=== PATIENT | female | born 1960 | race Caucasian/White ===

== ENCOUNTER 2023-04-01 12:17 | Emergency (ER) | payer OTHER, MEDICARE, MEDICAID, SELFPAY ==
--- NOTE | ~2023-04-01 | CT_ITS ---
EXAMINATION: CT brain wo con INDICATION: Headache COMPARISON: 12/18/2009 TECHNIQUE: Standard unenhanced head CT. The dose-length product (DLP) was 681.00 mGy-cm. The mA was a djusted according to patient size. Iterative reconstruction technique was employed. FINDINGS: No intracranial hemorrhage, acute infarction, or abnormal mass lesion. The ventricles are n ormal. No abnormal mass effect or midline shift. The solorio-white matter differentiation is normal. The basal cisterns are patent. The orbits are normal. There is mild mucosal thickening of the paranasal sinuses. IMPRESSION: 1. No acute intracranial abnormality. Reviewed, dictated and finalized at location A.
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
[2023-04-01 12:17] VITALS: BP 167/89; PULSE 90; RESP 15; TEMP 36.9; O2SAT 99
--- NOTE | 2023-04-01 12:31 | ECG_ITS ---
Measurements Intervals Grady Rate: 79 P: 26 MS: 169 QRS: 20 QRSD: 129 T: 14 QT: 432 QTc: 496 Interpretive Statements SINUS RHYTHM RIGHT BUNDLE BRANCH BLOCK [120+ ms QRS DURATION, UPRIGHT V1, 40+ ms S IN I/aVL/V4/V5/V6] NO PREVIOUS ECG AVAILABLE FOR COMPARISON Electronically Signed On 04-01-2023 14:11:47 CDT by Mago Swift M.D.
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
[2023-04-01 12:58] LABS: Basophils Percent Auto 0.4 % (0.2-1.2); Eosinophils Absolute Auto 0.2 K/mm3 (0-0.3); Eosinophils Percent Auto 3.1 % (0-4.4); Hematocrit 33.5 % (37.0-47.0); Hemoglobin 10.5 g/dL (12.0-15.0); Immature Granulocyte Absolute 0.02 K/mm3 (0.00-0.031); Immature Granulocyte Percent A 0.3 % (0-0.5); Lymphocytes Absolute Auto 2.24 K/mm3 (0.9-3.2); Mean Corpuscular HGB Conc 31.3 g/dl (32-36); Mean Corpuscular Hemoglobin 26.4 pg (26-34); Mean Corpuscular Volume 84.2 fl (80-100); Mean Platelet Volume 11.1 fl (7.4-10.4); Monocytes Absolute Auto 0.5 K/mm3 (0.1-0.6); Monocytes Percent Auto 6.6 % (2.6-8.5); Neutrophils Absolute Auto 3.8 K/mm3 (1.3-6.7); Neutrophils Percent Auto 56.6 % (45.5-73.1); Platelet Count Result 277 k/mm3 (150-375); Red Blood Count 3.98 M/mm3 (4.2-5.4); Red Cell Distribution Width 13.7 % (11.5-14.5); White Blood Count 6.8 K/mm3 (4.5-10.0)
[2023-04-01 13:07] LABS: INR 1.1; Prothrombin Time 14.5 Seconds (11.1-14.7)
[2023-04-01 13:08] LABS: Lactic Acid Reflex 1.3 mmol/L (0.7-2.0); Partial Thromboplastin Time 25.2 SECONDS (22.3-36.8)
[2023-04-01 13:09] LABS: Alanine Aminotransferase 29 U/L (6-35); Albumin Level 3.7 g/dL (3.5-5.1); Alkaline Phosphatase 134 U/L (38-126); Anion Gap 5 mmol/L (8-16); Aspartate Amino Transferase 26 U/L (14-36); Bilirubin,Total 0.5 mg/dL (0.2-1.3); Blood Urea Nitrogen 16 mg/dL (7-17); Carbon Dioxide 23 mmol/L (22-30); Chloride 107 mmol/L (98-107); Estimated CRCL calculation 64 ml/min; Estimated Glomerular Filt Rate > 60; Glucose 203 mg/dL (65-110); Potassium 4.2 mmol/L (3.4-5.0); Sodium 135 mmol/L (137-145)
[2023-04-01 13:50] VITALS: BP 132/66; PULSE 74; RESP 12; O2SAT 98
[2023-04-01] MEDS: CYCLOBENZAPRINE HCL 10 MG TABLET PO (14:16)
[2023-04-01] MEDS: HYDROcodone/acetaminophen (*CRX) 5-325 MG TABLET 1 TAB PO (14:16)
== END 2023-04-01 15:10 | disposition home or self-care (01) ==
PROVIDERS: Emergency Provider Emergency Medicine; PCP Internal Medicine
DX: S19.9XXA Unspecified injury of neck, initial encounter (principal); R07.89 Other chest pain; Z95.1 Presence of aortocoronary bypass graft; M47.812 Spondylosis without myelopathy or radiculopathy, cervical region; I45.10 Unspecified right bundle-branch block; V49.40XA Driver injured in collision with unspecified motor vehicles in traffic accident, initial encounter
CPT/HCPCS: 36415; 70450; 71275; 72125; 74174; 80053; 83605; 85025; 85610; 85730; 93005; 99284; A9270; Q9967

== ENCOUNTER 2024-09-07 00:57 | Emergency (ER) | payer MEDICARE, MEDICAID, SELFPAY ==
--- OUTSIDE RECORDS SUMMARY | 2024-09-07 00:59 | XMS_ITS | Clinical Summary ---
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
--- OUTSIDE RECORDS SUMMARY | 2024-09-07 00:59 | XMS_ITS | Continuity of Care Document ---
Author Organization [facility] Address [address] [place] [address] Phone Care Team Providers Care Department Clerk Name Role Phone Ingram OD, Rodney Unavailable Unavailable Advance Directives Directive Yes / No Effective Date File Name No Information Encounters Encounter Description Practice Location Reason(s) For Visit Diagnoses Date Provider Providers Copied on Encounter [facility], [address], [place], [place], [id number], [place] tel:[phone] [facility] No Information May-2 5-200 4 Ingram OD Rodney. [address] , [address], [place], [address], [place]. tel:[phone] Family History Family Member Type Diagnosis Age At Onset No Information Payers Payer name Insurance type Covered libertarian ID Authoriza tion(s) Medicaid [facility] [id number] Social History Type Description Quantity Date Captured Comments Sex Female Smoking Status No Information Chief Complaint And Reason For Visit No Information Reason For Referral Reason For Referral No Information History Of Present Illness Encounter Date Complaint History Of Prese nt Illness No Information Functional Status Date Functional Assessmen t No Information Instructions Date Instruction Additional Infor mation No Information Assessments Type Assessment Date No Information Patient Care Teams Name Effective Dates (start - stop) Status Members No Information
--- OUTSIDE RECORDS SUMMARY | 2024-09-07 00:59 | XMS_ITS | Encounter Summary ---
Author Organization [employer] Address 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 [address] [email or web address] Cardiac Catheterization Comprehensive Report Patient: ?Ondina Rubio Study ID: ? [id number] Gender: ? F : ?1960 Age: ?47 years Race: Room: Bed: Height: ? 66 in ( 167.6 cm ) Study Date: ? April 03, 2008 Patient status: Inpatient Weight: ? 220 lb ( 100 kg ) Access. #: ?[id number] POC: Attending MD: ?? Stephanie Performing MD: ??Stephanie Indications and History: INDICATIONS: Atypical anginal pain. The patient stable. CLINICAL PRESENTATION: The patient reported atypical. Procedure(s) Performed: DIAGNOSTIC PROCEDURES: Left heart catheterization. Left ventriculography. Selective coronary angiography. Study Conclusions: SUMMARY - ??EF estimated by contrast ventriculography was 65 %. - ??There was no angiographic evidence for coronary artery disease. RECOMMENDATIONS There is no evidence of obstruction to explain the reported symptoms; the stress test appears to be a false positive. The etiology of the patient's discomfort is still not clear. COMPLICATIONS: There were no complications. Description of Procedure: BACKGROUND INFORMATION: Contrast ( Optiray, 90 ml ) was administered during the procedure. The patient was given 100.000 mL (IV) IV Solutions. The patient was given 3.000 l/min OXYGEN. The patient was given 3.000 mg VERSED (IVP). Hemodynamics: IMPRESSIONS: Hemodynamic assessment demonstrated normal hemodynamics. Cardiac structures: VENTRICULOGRAPHY: There were no left ventricular regional wall motion abnormalities. EF estimated by contrast ventriculography was 65 %. Coronary and graft angiography: IMPRESSIONS: There was no angiographic evidence for coronary artery disease. Condition1: --- ??Pressure mmHg ?Rate ?dPdt AO ?? 122-S/ 73-D, 94-M ??75 BPM LV ?? 132-S/ 3-BD, 7-ED ??62 BPM ??1400 AOp ??121-S/ 72-D, 94-M ??70 BPM PBa ??123-S/ 73-D, 94-M ??72 BPM PBv ??121-S/ 2-BD, 7-ED ??72 BPM ??1400 Prepared and Electronically Authenticated Jose Burch MD Confirmed April 03, 2008 16:41:10 Procedure Note Provider, Historical - 04/03/2008 [address] [address] [place] [address] [email or web address] Cardiac Catheterization Comprehensive Report Patient: Ondina Rubio Study ID: [id number] Gender: F : 1960 Age: 47 years Race: Room: Bed: Height: 66 in ( 167.6 cm ) Study Date: April 03, 2008 Patient status: Inpatient Weight: 220 lb ( 100 kg ) Access. #: [id number] POC: Attending MD: Stephanie Performing MD: Stephanie Indications and History: INDICATIONS: Atypical anginal pain. The patient stable. CLINICAL PRESENTATION: The patient reported atypical. Procedure(s) Performed: DIAGNOSTIC PROCEDURES: Left heart catheterization. Left ventriculography. Selective coronary angiography. Study Conclusions: SUMMARY - EF estimated by contrast ventriculography was 65 %. - There was no angiographic evidence for coronary artery disease. RECOMMENDATIONS There is no evidence of obstruction to explain the reported symptoms;the stress test appears to be a false positive. The etiology of thepatient's discomfort is still not clear. COMPLICATIONS: There were no complications. Description of Procedure: BACKGROUND INFORMATION: Contrast ( Optiray, 90 ml ) was administered during the procedure. The patient was given 100.000 mL (IV) IV Solutions. The patient was given3.000 l/min OXYGEN. The patient was given 3.000 mg VERSED (IVP). Hemodynamics: IMPRESSIONS: Hemodynamic assessment demonstrated normal hemodynamics. Cardiac structures: VENTRICULOGRAPHY: There were no left ventricular regional wall motion abnormalities. EF estimated by contrast ventriculography was 65 %. Coronary and graft angiography: IMPRESSIONS: There was no angiographic evidence for coronary artery disease. Condition1: --- Pressure mmHg Rate dPdt AO 122-S/ 73-D, 94-M 75 BPM LV 132-S/ 3-BD, 7-ED 62 BPM 1400 AOp 121-S/ 72-D, 94-M 70 BPM PBa 123-S/ 73-D, 94-M 72 BPM PBv 121-S/ 2-BD, 7-ED 72 BPM 1400 Prepared and Electronically Authenticated Jose Burch MD Confirmed April 03, 2008 16:41:10 us Jose Burch MD FLUOROSCOPY ORDERABLES Fi nal Result INTERFACE SYSTEM Refer to clinic/hospital department documented in this encounter Visit Diagnoses Diagnosis Other chest pain documented in this encounter
--- OUTSIDE RECORDS SUMMARY | 2024-09-07 01:00 | XMS_ITS | Clinical Summary ---
Author Organization [facility] Address [address] [facility] [place] [address] Care Team Providers Care Electronic Maintenance Supervisor Name Role Phone Berna Carson MD Primary Care Provider [phone] Source Comments [facility],non-owned Affiliates and Associated Physician Practices is amultiple site organization consisting of ambulatory clinics and hospital sitesin [place], [place], [place] and [place]. This disclosure is being madepursuant to the Care Everywhere program and may not contain all information available regarding this patient. Last updated 18.[facility] Allergies Active Allergy Reactions Criticality Noted Date Comments Amlodipine Base Swelling High 08/05/2022 Clarithromycin Rash,Other Medium 05/19/2018 Stomach pain. Clindamycin Rash Medium 11/09/2018 Doxepin Other High 02/15/2019 Lisinopril Anaphylaxis,Swelling High 04/02/2015 Tongue swelling Naproxen Other,Nausea and/or Vomiting Low 05/19/2018 Stomach pain. Stomach pain Ranexa Dizziness 04/02/2015 Ranolazine Dizziness Low 04/02/2015 Medications * Be aware that medications may not be up to date on this document. Alwaysverify current medications with the patient. Medication Sig Dispensed Refills Start Date End Date Status Insulin Pen Needle (PEN NEEDLES) 31G X 5 MM MISC Inject into muscle 5 times daily 05/04/2018 Active ONE TOUCH CLUB LANCETS MISC 1 stick 3 times daily before meals 11/29/2014 Active budesonide-formote rol (Symbicort) 160-4.5 MCG/ACT inhaler Inhale 2 (two) puffs by mouth 2 times daily 11/29/2014 Active fluticasone propionate (FLONASE) 50 MCG/ACT nasal spray [place] 2 (two) sprays into each nostril 2 times daily 05/12/2018 Active HYDROcodone-acetam inophen (NORCO) 7.5-325 MG tablet Take 1 (one) tablet by mouth every 6 hours as needed 12/19/2017 Active TOUALINEO SOLOSTAR pen Inject 80 Units into muscle 2 times daily 05/12/2018 Active Insulin Regular Human, Conc, (HUMULIN R) 500 UNIT/ML SOPN pen Inject 5 (five) Units to 25 (twenty five) Units subcutaneously 3 times daily before meals 04/13/2018 Active isosorbide mononitrate CR 24hr (IMDUR) 30 MG tablet Take 1 tablet by mouth 2 times daily 11/18/2017 Active levothyroxine (Synthroid) 100 MCG tablet Take 1 (one) tablet by mouth once daily 11/18/2017 Active lovastatin (MEVACOR) 40 MG tablet Take 1 (one) tablet by mouth daily with dinner 07/01/2015 Active metoprolol succinate XL 24hr (TOPROL XL) 100 MG tablet Take 1 (one) tablet by mouth once daily 11/18/2017 Active pantoprazole EC (PROTONIX) 20 MG tablet Take 1 (one) tablet by mouth 2 times daily with morning and evening meal 04/15/2016 Active raNITIdine (ZANTAC) 150 MG tablet Take 1 tablet by mouth 2 times daily 03/15/2018 Active nitroGLYCERIN (Nitrostat) 0.4 MG tablet Dissolve 0.4 mg under the tongue every 5 minutes as needed for Angina Active aspirin (ASPIRIN) 81 MG tablet Take 1 (one) tablet by mouth once daily Active atorvastatin (Lipitor) 80 MG tablet 04/21/2022 Active Ventolin HFA 108 (90 Base) MCG/ACT inhaler Inhale 2 (two) puffs by mouth every 4 hours as needed 08/04/2023 Active albuterol (Accuneb) 0.63 MG/3ML nebulizer solution Inhale 0.63 mg by mouth every 6 hours as needed Active baclofen (Lioresal) 20 MG tablet TAKE 1 TABLET BY MOUTH THREE TIMES A DAY NEEDED 07/26/2023 Active dulaglutide (Trulicity) 4.5 MG/0.5ML injection Inject 0.5 mL subcutaneously every 7 days 2 mL 11 08/27/2023 Active famotidine (Pepcid) 20 MG tablet 09/01/2023 Active furosemide (Lasix) 20 MG tablet 07/16/2022 Active blood glucose (True Metrix Blood Glucose Test) test strip CHECK BLOOD SUGAR THREE TIMES DAILY. Type 2 diabetes mellitus with hyperglycemia, with long-term current use of insulin . E11.65, Z79.4 05/19/2023 Active insulin degludec (Tresiba) 200 UNIT/ML pen Inject 50 units BID 05/19/2023 Acti ve lidocaine (Lidoderm) 5 % patch APPLY 1 PATCH ON SKIN ONCE DAILY (MAY WEAR UP TO 12 HOURS.) FOR CERVICAL RADICULOPATHY 08/25/2023 Active meloxicam (Mobic) 7.5 MG tablet Take 1 (one) tablet by mouth 2 times daily 08/17/2023 Active montelukast (Singulair) 10 MG tablet Take 1 (one) tablet by mouth once daily as directed. 07/17/2023 Active diclofenac sodium (Voltaren) 1 % gel Active hydrOXYzine HCl (Atarax) 50 MG tablet TAKE 2 TABLETS BY MOUTH EVERY DAY AT BEDTIME Active metoprolol tartrate IR (Lopressor) 25 MG tablet 09/29/2023 Active montelukast (Singulair) 10 MG tablet Take 1 (one) tablet by mouth once daily Active venlafaxine XR 24hr (Effexor XR) 150 MG capsule TAKE 1 CAPSULE BY MOUTH EVERY DAY IN THE MORNING Active diazePAM (Valium) 10 MG tabletIndications: Basal cell carcinoma (BCC) of skin of left upper lip Take 1 (one) tablet by mouth 3 times daily as needed For anxiety 3 tablet 10/01/2023 Active Active Problems Problem Noted Date Diagnosed Date Face lesion 05/19/2018 Skin lesion of hand 05/19/2018 Social History Tobacco Use Types Packs/Day Years Used Date Smoking Tobacco: Never Smokeless Tobacco: Never Tobacco Cessation:Counseling Given: Not Answered Alcohol Use Standard Drinks/Week Comments Yes 0 (1 standard drink = 0.6 oz pur e alcohol) Rarely Sex and Gender Information Value Date Recorded Sex Assigned at Not on file Gender Identity Not on file Sexual Orientation Not on file Last Filed Vital Signs Vital Sign Reading Time Taken Comments Blood Pressure 140/84 05/19/2018 10:10 AM CDT Pulse 81 05/19/2018 10:10 AM CDT Temperature 36.6 ??C (97.9 ??F) 05/19/2018 10:10 AM C DT Respiratory Rate - - Oxygen Saturation 99% 05/19/2018 10:10 AM CDT Inhaled Oxygen Concentration - - Weight 98.4 kg (217 lb) 11/09/2018 9:11 AM CDT Height 167.6 cm (5' 6 ) 11/09/2018 9:11 AM CDT Body Mass Index 35.02 11/09/2018 9:11 AM CDT Plan of Treatment Upcoming Encounters Date Type Department Care Team (Late st Contact Info) Description 09/09/2024 11:00 AM LEAD PERFORMANCE SUPPORT ANALYST Office Visit [facility] - Dermatology [address] [place] [address], [place] [address] Rola Dave MD [facility] [place] [id number] Health Maintenance Due Date Last Done Comments COLOGUARD (AGES 45-75) - COLON CA SCREENING 1960 COLON MONITORING 1960 COLONOSCOPY - COLON CA SCREENING 1960 CT COLONOGRAPHY - COLON CA SCREENING 1960 Colorectal Cancer Screening 1960 FIT - COLON CA SCREENING 1960 FLEX SIG - COLON CA SCREENING 1960 MAMMOGRAM 1960 PAP SMEAR 1960 HIV SCREENING 1975 HEPATITIS C SCREENING 06/09/1978 DTAP/TDAP/TD VACCINES (1 - Tdap) 1979 PNEUMOCOCCAL VACCINE 50+ (1 of 1 - PCV) 2010 ZOSTER VACCINE (1 of 2) 2010 COVID-19 VACCINE ( season) 2024 11/01/2020, 10/11/2020, 07/31/2020, Additional history exists INFLUENZA VACCINE (#1) 2024 DEPRESSION SCREENING 08/10/2024 MEDICARE AWV ? CALENDAR YEAR 2024 Respiratory Syncytial Virus (RSV) Vaccine Pt: or over 60 yrs (1 - 1-dose 75+ series) 2035 HEPATITIS B VACCINE Aged Out No longe r eligible based on patient's age to complete this topic HIB VACCINE Aged Out No longer eligi ble based on patient's age to complete this topic HPV VACCINE Aged Out No longer eligi ble based on patient's age to complete this topic MENINGOCOCCAL (Group B) VACCINE Aged Out No longer eligible based on patient's age to complete this topic MENINGOCOCCAL VACCINE Aged Out No dharmesh eugenia eligible based on patient's age to complete this topic Care Teams Electronic Maintenance Supervisor Relationship Specialty Start Date End Date Berna Carson MD [address] [place] [address] PCP - General 03/09/18
--- OUTSIDE RECORDS SUMMARY | 2024-09-07 01:00 | XMS_ITS | Data Portability ---
Author Organization [place] [facility] [employer] Main Office Address [address] [place] [address] Assessment Encounter Date Assessment Date Assessment LastModified by Organization Details LastModified Time 02/26/2023 02/26/2023 HPI: 62-year-old female came in today for evaluation of her left ankle injury. She is walking in 1 week ago and stepped in a hole. She inverted the ankle. She had immediate pain lateral ankle and swelling. She went to the emergency room in [place] and had x-rays done. I did review the x-rays which showed a small flake of bone off of the lateral talus. No other abnormalities were noted.She was placed into a cam walker boot. Physical exam: 62-year-old female she has some mild swelling to the lateral ankle. Mild ecchymosis laterally. Moderate tenderness to the ATFL. There is no tenderness medially to the ankle. 2+ dorsalis pedis pulse. No tenderness to palpation of the lateral malleolus. Impression: Patient has had a left lateral ankle sprain. She states she hates the boot because it is causing her to walk awkward and making other things hurt. We will provide her with an active ankle stirrup splint today which she can use. I recommended a course of formal physical therapy to rehab the ankle and we will set this up for her. She may be weight-bearing as tolerated. She should limit her activities at this point to allow the ankle to improve. We will see her in a month for re-evaluation. [email or web address] Not available 02/26/2023 14:59:15 Plan of Treatment Reminders Order Date Submit Date Provider Last Modified By Organization Details Last Modified Time Details Appointments New Patient 15 2024 01:45P M Dixie Abad MD Not available Not available Not available Lab None recorded . Referral None recorded . Procedures None recorded . Surgeries None recorded . Imaging None recorded . Medication Orders None recorded . Patient TargetsNo targets recorded. Patient InstructionsNo instructions recorded. Reason for Referral None Reported. Results Created Date Observation Date Name Description Value Unit Range Abnormal Flag Note LastModifiedBy Organization Detail LastModifiedTime 02/24/2002/20/2023 XR, knee, 1 or 2 view No observ ation record ed. [email or web address] Not Available 02/07 17:10:30 02/24/20 23 02/20/2023 XR, ankle , 3 or more view No observ ation record ed. [email or web address] Not Available 02/07 17:10:31 02/27/20 23 02/20/2023 XR, ankle No observ ation record ed. [email or web address] Not Available 2022 16:55:23 02/27/20 23 02/20/2023 XR, knee No observ ation record ed. [email or web address] Not Available 2022 16:55:41 Result Notes None recorded. Problems Name Problem SNOMED Code Status Onset Date Resolution Date Notes Provider Name and Address Organization Details Recorded Time Enthesopat hy of hip region 14056232 Active Not Available [facility] 3 12:56:07 Hip pain 03095943 Active Not Available [facility] 3 12:56:07 Pain of left ankle joint 0853445497428 9103 Active 2022 KAYLEE Del Cid null, [employer] 3 14:32:21 Sprain of right ankle 3178189535667 9105 Active 2022 Aniya Jenkins CMA null, [employer] 3 16:37:06 Problem Notes None recorded. Procedures Surgical History Date Name Laterality Status Provider Name and Address Organization Details Recorded Time open heart surgery completed Not Available [facility] 10/08/2022 12:53:21 Imaging Results Imaging Date Name Status LastModified by Organiz ation Details LastModified Time 02/20/2023 XR, knee, 1 or 2 view completed Information not available 02/23/2023 17:10:30 02/20/2023 XR, ankle, 3 or more view completed Information not available 02/23/2023 17:10:31 02/20/2023 XR, ankle completed Information no t available 02/26/2023 16:55:23 02/20/2023 XR, knee completed Information no t available 02/26/2023 16:55:41 Procedure Notes None recorded. Medical Equipment None Reported. Allergies Allergen ID Allergen Name Allergen Category Reaction Reaction Severity Criticality Documentation Date Start Date Code Code System Note Provider Name and Address Organization Details Recorded Time 73929 naproxen medicatio n Not available Not available Not available 10/08/2022 7258 RxNorm Not Available [facility] 3 13:01:20 27163 lisinopri l medicatio n anaphylax is Not available Not available 10/08/2022 37856 RxNorm Not Available [facility] 3 13:01:20 54503 doxepin medicatio n Not available Not available Not available 10/08/2022 3638 RxNorm Not Available [facility] 3 13:01:20 48005 clindamyc in Not available Not available Not available Not available 10/08/2022 2582 RxNorm Not Available [facility] 3 13:01:20 54711 Biaxin medicatio n Not available Not available Not available 10/08/2022 84473 9 RxNorm Not Available [facility] 3 13:01:20 58994 Effexor medicatio n Not available Not available Not available 12/03/2023 60283 2 RxNorm KAYLEE Magana, [place] [employer] [facility] 4 10:07:13 Medications Name Sig Start Date Stop Date Status Note LastModified by Organization Details LastModified Time cyclobenzap rine 10 mg tablet TAKE 1 TABLET BY MOUTH AT BEDTIME FOR MUSCLE SPASM 12/02 completed Not Available Not Available Not Available amoxicillin 500 mg capsule 02/26 completed Not Available Not Available Not Available furosemide 40 mg tablet TAKE 1 TABLET BY MOUTH ONCE DAILY active Not Available Not Available No t Available Humalog Mix 75-25 (U-100) Insulin 100 unit/mL subcutaneou s suspension 02/26 completed Not Available Not Available Not Available atorvastati n 40 mg tablet 07/17 completed Not Available Not Available Not Available atorvastati n 80 mg tablet TAKE 1 TABLET BY MOUTH EVERY DAY AT DINNER active Not Available Not Available No t Available venlafaxine ER 75 mg capsule,ext ended release 24 hr 02/26 completed Not Available Not Available Not Available citalopram 40 mg tablet 07/17 completed Not Available Not Available Not Available trazodone 50 mg tablet 12/02 completed Not Available Not Available Not Available fexofenadin e 60 mg tablet TAKE 1 TABLET BY MOUTH TWICE A DAY DIRECTED active Not Available Not Available No t Available Humulin R U-500 (Concentrat ed) Insulin 500 unit/mL subcutaneou s soln 12/02 completed Not Available Not Available Not Available ibuprofen 800 mg tablet 02/26 completed Not Available Not Available Not Available doxepin 25 mg capsule 07/17 completed Not Available Not Available Not Available hydrocodone 5 mg-acetamin ophen 325 mg tablet TAKE 1 TABLET BY MOUTH EVERY 8 HOURS NEEDED FOR PAIN active Not Available Not Available No t Available prednisone 20 mg tablet 02/26 completed Not Available Not Available Not Available isosorbide mononitrate ER 30 mg tablet,exte nded release 24 hr 07/17 completed Not Available Not Available Not Available clonazepam 0.5 mg tablet TAKE 1 TABLET BY MOUTH EVERY DAY WITH MEALS 12/02 completed Not Available Not Available Not Available lovastatin 40 mg tablet 07/17 completed Not Available Not Available Not Available metoprolol succinate ER 100 mg tablet,exte nded release 24 hr 02/26 completed Not Available Not Available Not Available sertraline 100 mg tablet 02/26 completed Not Available Not Available Not Available venlafaxine ER 150 mg capsule,ext ended release 24 hr TAKE 1 CAPSULE BY MOUTH EVERY DAY IN THE MORNING active Not Available Not Available No t Available metronidazo le 500 mg tablet 07/17 completed Not Available Not Available Not Available hydroxyzine HCl 50 mg tablet TAKE 2 TABLETS BY MOUTH EVERY DAY AT BEDTIME active Not Available Not Available No t Available fluocinonid e 0.05 % topical ointment 12/02 completed Not Available Not Available Not Available clopidogrel 75 mg tablet TAKE 1 TABLET BY MOUTH AT BEDTIME 05/27 /2021 completed Not Available Not Available Not Available doxepin 10 mg capsule 07/17 completed Not Available Not Available Not Available ciprofloxac in 500 mg tablet 07/17 completed Not Available Not Available Not Available sulfamethox azole 800 mg-trimetho prim 160 mg tablet TAKE 1 TABLET BY MOUTH EVERY 12 HOURS AFTER MEALS FOR 5 DAYS 12/02 completed Not Available Not Available Not Available aspirin 81 mg tablet,bonita yed release TAKE 1 TABLET BY MOUTH ONCE DAILY 02/26 completed Not Available Not Available Not Available tramadol 50 mg tablet TK 1 T PO Q 8 H PRN P 02/26 completed Not Available Not Available Not Available spironolact one 25 mg tablet TAKE 1 TABLET BY MOUTH ONCE DAILY 02/26 completed Not Available Not Available Not Available lidocaine-p rilocaine 2.5 %-2.5 % topical cream 02/26 completed Not Available Not Available Not Available isosorbide mononitrate ER 120 mg tablet,exte nded release 24 hr TAKE 1 TABLET BY MOUTH TWICE DAILY 12/02 completed Not Available Not Available Not Available baclofen 20 mg tablet TAKE 1 TABLET BY MOUTH THREE TIMES A DAY NEEDED active Not Available Not Available No t Available pantoprazol e 20 mg tablet,bonita yed release TAKE 1 TABLET BY MOUTH EVERY DAY active Not Available Not Available No t Available meloxicam 7.5 mg tablet Take 1 tablet every day by oral route. active Not Available Not Available No t Available levothyroxi ne 100 mcg tablet TAKE 1 TABLET BY MOUTH EVERY DAY DIRECTED active Not Available Not Available No t Available amoxicillin 875 mg tablet 02/26 completed Not Available Not Available Not Available alprazolam 0.25 mg tablet 02/26 completed Not Available Not Available Not Available citalopram 20 mg tablet 07/17 completed Not Available Not Available Not Available famotidine 20 mg tablet TAKE 1 TABLET BY MOUTH TWICE A DAY active Not Available Not Available No t Available amitriptyli ne 25 mg tablet 02/26 completed Not Available Not Available Not Available methocarbam ol 750 mg tablet 02/26 completed Not Available Not Available Not Available OneTouch Ultra Test strips CHECK BLOOD SUGAR THREE TIMES A DAY OR DIRECTED active Not Available Not Available No t Available baclofen 10 mg tablet active Not Available Not Available No t Available amlodipine 10 mg tablet 02/26 completed Not Available Not Available Not Available levothyroxi ne 50 mcg tablet 02/26 completed Not Available Not Available Not Available hydrocodone 7.5 mg-acetamin ophen 325 mg tablet 02/26 completed Not Available Not Available Not Available paroxetine 30 mg tablet 07/17 completed Not Available Not Available Not Available paroxetine 20 mg tablet 07/17 completed Not Available Not Available Not Available pantoprazol e 40 mg tablet,bonita yed release TAKE 1 TABLET BY MOUTH EVERY DAY BEFORE MEALS active Not Available Not Available No t Available ranitidine 150 mg tablet 07/17 completed Not Available Not Available Not Available buspirone 10 mg tablet TAKE 1 TABLET BY MOUTH TWICE A DAY WITH MEALS 12/02 completed Not Available Not Available Not Available divalproex ER 500 mg tablet,exte nded release 24 hr TAKE 2 TABLETS BY MOUTH AT BEDTIME active Not Available Not Available No t Available lidocaine 5 % topical patch APPLY 1 PATCH ON SKIN ONCE DAILY (MAY WEAR UP TO 12 HOURS.) FOR CERVICAL RADICULOP ATHY active Not Available Not Available No t Available nitroglycer in 0.[address] 1 TABLET UNDER THE TONGUE EVERY 5 MINUTES, UP TO 3 DOSES NEEDED FOR CHEST PAIN active Not Available Not Available No t Available aspirin 81 mg chewable tablet Chew 1 tablet every day by oral route. active Not Available Not Available No t Available diclofenac sodium 75 mg tablet,bonita yed release 07/17 completed Not Available Not Available Not Available montelukast 10 mg tablet TAKE 1 TABLET BY MOUTH EVERY DAY DIRECTED active Not Available Not Available No t Available hydroxyzine HCl 25 mg tablet active Not Available Not Available Not Available furosemide 20 mg tablet TAKE 1 TABLET BY MOUTH EVERY DAY DIRECTED active Not Available Not Available No t Available gabapentin 100 mg capsule TAKE 1 CAPSULE BY MOUTH TWICE A DAY active Not Available Not Available No t Available diazepam 10 mg tablet TAKE 1 TABLET BY MOUTH THREE TIMES A DAY NEEDED FOR ANXIETY active Not Available Not Available No t Available levofloxaci n 500 mg tablet 02/26 completed Not Available Not Available Not Available methylpredn isolone 4 mg tablets in a dose pack FOLLOW PACKAGE DIRECTION S active Not Available Not Available No t Available albuterol sulfate HFA 90 mcg/actuati on aerosol inhaler Inhale 2 puffs every 4 hours by inhalatio n route. active Not Available Not Available No t Available paroxetine 40 mg tablet 02/26 completed Not Available Not Available Not Available fluticasone propionate 50 mcg/actuati on nasal spray,suspe nsion INHALE ONE SPRAY IN EACH NOSTRIL EVERY DAY active Not Available Not Available No t Available amoxicillin 875 mg-potassiu m clavulanate 125 mg tablet TAKE 1 TABLET BY MOUTH TWICE A DAY FOR 7 DAYS FOR INFECTINO OF SKIN AND/OR SKIN STRUCTURE S active Not Available Not Available No t Available amoxicillin 500 mg-potassiu m clavulanate 125 mg tablet TAKE 1 TABLET BY MOUTH THREE TIMES A DAY active Not Available Not Available No t Available hydroxyzine pamoate 25 mg capsule 07/17 completed Not Available Not Available Not Available Alcohol Prep Pads USE ONE SWAB 3 TIMES A DAY DIRECTED active Not Available Not Available No t Available metoprolol tartrate 25 mg tablet TAKE 1 TABLET BY MOUTH TWICE A DAY active Not Available Not Available No t Available nitrofurant oin monohydrate /macrocryst als 100 mg capsule 12/02 completed Not Available Not Available Not Available duloxetine 60 mg capsule,del ayed release Take 1 capsule every day by oral route. active Not Available Not Available No t Available Lyrica 150 mg capsule 07/17 completed Not Available Not Available Not Available Asp 12/02 completed Not Available Not Available Not Available budesonide- formoterol HFA 160 mcg-4.5 mcg/actuati on aerosol inhaler INHALE 2 PUFFS TWICE A DAY DIRECTED active Not Available Not Available No t Available oxycodone 10 mg tablet TAKE 1 TABLET BY MOUTH EVERY 4 HOURS NEEDED FOR PAIN 02/26 completed Not Available Not Available Not Available diclofenac 1 % topical gel 12/02 completed Not Available Not Available Not Available Brilinta 90 mg tablet 02/26 completed Not Available Not Available Not Available lidocaine 5 % topical ointment 02/26 completed Not Available Not Available Not Available Comfort EZ Pen [place] 32 gauge x 3/16 active Not Available Not Available Not Available Farxiga 10 mg tablet 02/26 completed Not Available Not Available Not Available Trulicity 1.5 mg/0.5 mL subcutaneou s pen injector 12/02 completed Not Available Not Available Not Available Mike SoloStar U-300 Insulin 300 unit/mL (1.5 mL) subcutaneou s pen 02/26 completed Not Available Not Available Not Available Tresiba FlexTouch U-200 insulin 200 unit/mL (3 mL) subcutaneou s pen ADMINISTE R 50 UNITS UNDER THE SKIN TWICE DAILY active Not Available Not Available No t Available Tresiba FlexTouch U-100 active Not Available Not Available Not Available Humulin R U-500 (Conc) Insulin Kwikpen 500 unit/mL (3 mL) subcutaneou s TAKE 5-20 UNITS BEFORE BREAKFAST AND DINNER INSTRUCTE D ON A SLIDING SCALE active Not Available Not Available No t Available Basaglar KwikPen U-100 Insulin 100 unit/mL (3 mL) subcutaneou s 02/26 completed Not Available Not Available Not Available Omnipod Dash Pods (Gen 4) subcutaneou s cartridge CHANGE POD EVERY 2 DAYS 02/26 completed Not Available Not Available Not Available BD Virgen 2nd Gen Pen Needle 32 gauge x 5/32 USE TO INJECT INSULIN UP TO 4 TIMES A DAY active Not Available Not Available No t Available OneTouch Ultra2 Meter TEST BLOOD SUGARS 3 TIMES A DAY active Not Available Not Available No t Available OneTouch Delica Plus Lancet 33 gauge USE 1 EACH 3 (THREE) TIMES A DAY BEFORE MEALS active Not Available Not Available No t Available Trulicity 3 mg/0.5 mL subcutaneou s pen injector INJECT 0.5 ML (3 MG TOTAL) UNDER THE SKIN EVERY 7 DAYS 12/02 completed Not Available Not Available Not Available Trulicity 4.5 mg/0.5 mL subcutaneou s pen injector Inject by subcutane ous route. active Not Available Not Available No t Available Vitals Date Recorded Body weight Provider Name an d Address Organization Details Last Updated DateTime 01/03/2021 59149.7 g Not Available [facility] 12:53:39 Social History Question Answer Notes LastModified by Organizat ion Details LastModified Time Tobacco Smoking Status Never Smoker KAYLEE Del Cid null, [place] [facility] [place] 02/26/2023 14:31:08 What Is Your Level Of Alcohol Consumption? None [id number] Information not available 10/08/2022 How Much Tobacco Do You Chew? None [id number] Information not available 10/08/2022 In The 14 Days Before Symptom Onset, Have You Had Close Contact With A Laboratory-confirm ed COVID-19 While That Case Was Ill? No [id number] Information not available 10/08/2022 In The 14 Days Before Symptom Onset, Have You Had Close Contact With A Person Who Is Under Investigation For COVID-19 While That Person Was Ill? No [id number] Information not available 10/08/2022 Are You Passively Exposed To Smoke? No [id number] Information not available 10/08/2022 Sex: Unknown Functional Status Question Answer Note LastModified by Organizat ion Details LastModified Time What is your exercise level? None [id number] Information not available 10/08/2022 Mental Status None recorded. Family History Relationship Description Onset Age of this Age Resolved Age Notes LastModified by Organization Details LastModified Time Mother Heart disease [email or web address] Not available 2022 14:29:30 Mother Family history of stroke [email or web address] Not available 2022 14:29:44 Mother Family history of malignant neoplasm Not available 2022 14:30:11 Mother Hypertensive disorder [email or web address] Not available 2022 14:30:24 Mother Blood coagulation disorder [email or web address] Not available 2022 14:30:34 Mother Diabetes mellitus [email or web address] Not available 2022 14:30:55 Father Family history of stroke Not available 2022 14:29:44 Father Family history of malignant neoplasm [email or web address] Not available 2022 14:30:11 Sister Family history of malignant neoplasm Not available 2022 14:30:11 Sister Diabetes mellitus [email or web address] Not available 2022 14:30:55 Brother Diabetes mellitus [email or web address] Not available 2022 14:30:55 Medical History Condition Response MRSA N SLEEP APNEA N ALLERGIES/HAYFEVER N LUNG DISEASE/DISORDER N INSOMNIA N COPD N RADIATION / CHEMOTHERAPY N HIGH CHOLESTEROL / HYPERLIPIDEMIA Y HYPERTHYROIDISM N BLOOD DISEASES N EAR OR HEARING PROBLEMS N HYPOTHYROIDISM N DEPRESSION (INCLUDING POST ) Y HAVE YOU BEEN HOSPITALIZED OR SEEN IN E ER IN THE PAST YEAR ? N STROKE/TIA N ULCERS N OBESITY N ANEURYSM N HISTORY WITH COMPLICATIONS WITH ANESTHES IA ? N ARTHRITIS Y USE OF BLOOD THINNERS N NO SIGNIFICANT PAST MEDICAL HISTORY N DIABETES, TYPE Y PARATHYROID DISEASE N ENT N SEASONAL ALLERGIES N HEARTBURN / REFLUX Y HEPATITIS / LIVER DISEASE N SLEEP DISORDER N SEIZURES/EPILEPSY N HEADACHES/MIGRAINES Y CHF N PACEMAKER N DIZZINESS N HEART DISEASE/HEART PROBLEMS Y AIDS/HIV N FRACTURES N HYPERTENSION Y CANCER: SPECIFY N TOURETTE'S N BLOOD TRANSFUSION N ANEMIA/BLOOD DISORDER N ANESTHESIA COMPLICATIONS N CHRONIC EAR INFECTIONS N TUBERCULOSIS N Gynecological HistoryNo gynecological history recorded. Obstetrics History GPAL:G 0 P 0 0 0 0 Immunizations Vaccine Type Date Status Note Provider Nam e and Address Organization Details Recorded Time SARS-COV-2 (COVID-19) vaccine, UNSPECIFIED 0 completed Not Available [facility] 10/08/2022 13:01:06 SARS-COV-2 (COVID-19) vaccine, UNSPECIFIED 0 completed Not Available [facility] 10/08/2022 13:01:06 Past Encounters Encounter ID Performer Location Encounter Start Date Encounter Closed Date Diagnosis/Indication Diagnosis SNOMED-CT Code Diagnosis ICD10 Code Diagnosis Note [id number] [facility] [address] [place] [address] 01/03/2021 00:00:00 01/03/2021 14:51:47 [id number] SAMIA Bellamy [facility] [address] [place] [address] 02/26/2023 13:58:57 02/26/2023 15:07:51 Pain of left ankle joint 0300057347 5594922 M25.572 Health Concerns Section Related Observation LastModified by Organization Detai ls LastModified Time None Recorded Concern Status LastModified by Organization Details LastModified Time None Recorded Advance Directives Directive None Recorded Payers Encounter Date Sequence Insurance Name Policy Number Policy Partida Covered Member ID Partida Member ID Guarantor Name 02/26/2023 1 [place] Ondina Rubio [id number] Ondina Rubio 02/26/2023 2 [facility] (MEDICAID HMO) [id number] Ondina Rubio [id number] Ondina Rubio OBGyn Episode No OBEpisode recorded.
--- OUTSIDE RECORDS SUMMARY | 2024-09-07 01:00 | XMS_ITS | Patient Health Summary ---
Author Organization [facility] Address [address] [place] [address] Care Team Providers Care Planer Stone Name Role Phone Berna Carson MD Primary Care Provider [phone] Note [address] [facility],non-owned Affiliates and Associated Physician Practices is amultiple site organization consisting of ambulatory clinics and hospital sitesin [place], [place], [place] and [place]. This disclosure is being madepursuant to the Care Everywhere program and may not contain all information available regarding this patient. Last updated 18.[facility] Allergies * Amlodipine Base(Swelling) -High Criticality * Clarithromycin(Rash,Other) -Medium Criticality * Clindamycin(Rash) -Medium Criticality * Doxepin(Other) -High Criticality * Lisinopril(Anaphylaxis,Swelling) -High Criticality * Naproxen(Other,Nausea and/or Vomiting) -Low Criticality * Ranexa(Dizziness) * Ranolazine(Dizziness) -Low Criticality Medications * Be aware that medications may not be up to date on this document. Alwaysverify current medications with the patient. * Insulin Pen Needle (PEN NEEDLES) 31G X 5 MM MISC(Started 05/04/2018) Inject into muscle 5 times daily * ONE TOUCH CLUB LANCETS MISC(Started 11/29/2014) 1 stick 3 times daily before meals * budesonide-formoterol (Symbicort) 160-4.5 MCG/ACT inhaler(Started 11/29/2014) Inhale 2 (two) puffs by mouth 2 times daily * fluticasone propionate (FLONASE) 50 MCG/ACT nasal spray(Started 05/12/2018) Garrison 2 (two) sprays into each nostril 2 times daily * HYDROcodone-acetaminophen (NORCO) 7.5-325 MG tablet(Started 12/19/2017) Take 1 (one) tablet by mouth every 6 hours as needed * TODOMINIC SOLOSTAR pen(Started 05/12/2018) Inject 80 Units into muscle 2 times daily * Insulin Regular Human, Conc, (HUMULIN R) 500 UNIT/ML SOPN pen(Started 04/13/2018) Inject 5 (five) Units to 25 (twenty five) Units subcutaneously 3 times daily before meals * isosorbide mononitrate CR 24hr (IMDUR) 30 MG tablet(Started 11/18/2017) Take 1 tablet by mouth 2 times daily * levothyroxine (Synthroid) 100 MCG tablet(Started 11/18/2017) Take 1 (one) tablet by mouth once daily * lovastatin (MEVACOR) 40 MG tablet(Started 07/01/2015) Take 1 (one) tablet by mouth daily with dinner * metoprolol succinate XL 24hr (TOPROL XL) 100 MG tablet(Started 11/18/2017) Take 1 (one) tablet by mouth once daily * pantoprazole EC (PROTONIX) 20 MG tablet(Started 04/15/2016) Take 1 (one) tablet by mouth 2 times daily with morning and evening meal * raNITIdine (ZANTAC) 150 MG tablet(Started 03/15/2018) Take 1 tablet by mouth 2 times daily * nitroGLYCERIN (Nitrostat) 0.4 MG tablet Dissolve 0.4 mg under the tongue every 5 minutes as needed for Angina * aspirin (ASPIRIN) 81 MG tablet Take 1 (one) tablet by mouth once daily * atorvastatin (Lipitor) 80 MG tablet(Started 04/21/2022) * Ventolin HFA 108 (90 Base) MCG/ACT inhaler(Started 08/04/2023) Inhale 2 (two) puffs by mouth every 4 hours as needed * albuterol (Accuneb) 0.63 MG/3ML nebulizer solution Inhale 0.63 mg by mouth every 6 hours as needed * baclofen (Lioresal) 20 MG tablet(Started 07/26/2023) TAKE 1 TABLET BY MOUTH THREE TIMES A DAY NEEDED * dulaglutide (Trulicity) 4.5 MG/0.5ML injection(Started 08/27/2023) Inject 0.5 mL subcutaneously every 7 days 11 refills remaining * famotidine (Pepcid) 20 MG tablet(Started 09/01/2023) * furosemide (Lasix) 20 MG tablet(Started 07/16/2022) * blood glucose (True Metrix Blood Glucose Test) test strip(Started 05/19/2023) CHECK BLOOD SUGAR THREE TIMES DAILY. Type 2 diabetes mellitus with hyperglycemia, with long-term current use of insulin . E11.65, Z79.4 * insulin degludec (Tresiba) 200 UNIT/ML pen(Started 05/19/2023) Inject 50 units BID * lidocaine (Lidoderm) 5 % patch(Started 08/25/2023) APPLY 1 PATCH ON SKIN ONCE DAILY (MAY WEAR UP TO 12 HOURS.) FOR CERVICAL RADICULOPATHY * meloxicam (Mobic) 7.5 MG tablet(Started 08/17/2023) Take 1 (one) tablet by mouth 2 times daily * montelukast (Singulair) 10 MG tablet(Started 07/17/2023) Take 1 (one) tablet by mouth once daily as directed. * diclofenac sodium (Voltaren) 1 % gel * hydrOXYzine HCl (Atarax) 50 MG tablet TAKE 2 TABLETS BY MOUTH EVERY DAY AT BEDTIME * metoprolol tartrate IR (Lopressor) 25 MG tablet(Started 09/29/2023) * montelukast (Singulair) 10 MG tablet Take 1 (one) tablet by mouth once daily * venlafaxine XR 24hr (Effexor XR) 150 MG capsule TAKE 1 CAPSULE BY MOUTH EVERY DAY IN THE MORNING * diazePAM (Valium) 10 MG tablet(Started 10/01/2023) Take 1 (one) tablet by mouth 3 times daily as needed For anxiety Active Problems Problem Noted Date Diagnosed Date [...] Mass Index 35.02 11/09/2018 9:11 AM CDT Procedures * SC CHMSRG MOHS MG TQ H/N/H/F/G 1ST STAG 5 BLOC(Performed 10/08/2023) Performed for Basal cell carcinoma (BCC) of skin of left upper lip * SC ADJ TISS XFER HEAD,FAC,HAND 10.1-30(Performed 10/08/2023) Performed for Basal cell carcinoma (BCC) of skin of left upper lip * PROC BIOPSY OF SKIN LESION(Performed 09/04/2023) Performed for Neoplasm of uncertain behavior * PROC DESTRUCTION OF PRE-MALIGNANT LESIONS(Performed 09/04/2023) Performed for Actinic keratosis * DERMATOPATHOLOGY(Performed 09/04/2023) Performed for Neoplasm of uncertain behavior * SC DESTRUCT BENIGN LESION, 1-14(Performed 04/25/2022) Performed for Seborrheic keratosis, inflamed * SC DESTROY PREMALIG LESION, 1ST LESION(Performed 04/25/2022) Performed for Actinic keratosis * SC TANGNTL BX SKIN SINGLE LES(Performed 04/25/2022) Performed for Neoplasm of uncertain behavior of skin * DERMATOPATHOLOGY(Performed 04/25/2022) Performed for Neoplasm of uncertain behavior of skin * SC DESTROY PREMALIG LESION, 1ST LESION(Performed 11/11/2018) Performed for Actinic keratoses * SC DESTROY PREMALIG LESION, 2-14(Performed 11/11/2018) Performed for Actinic keratoses Results * SC ADJ TISS XFER HEAD,FAC,HAND 10.1-30, SC CHMSRG MOHS MG TQ H/N/H/F/G 1ST STAG 5 BLOC (10/08/2023 2:45 PM NEEDLE MAKER) John Curtis MD - 10/08/2023 2:45 PM John Doherty MD ? 10/08/2023 ??3:33 PM Mohs Micrographic Surgery Operative Note Procedure: Mohs micrographic surgery Date of service: 10/08/2023 Location: left upper cutaneous lip Preop diagnosis: Basal cell carcinoma, infiltrative subtype Postop diagnosis: Same Mohs AUC score: 9 Number of stages: 1 Preop size: 0.8x0.7 cm Postop size: 1.4x1.3 cm Depth of final defect: adipose Previous dermpath accession #: [id number] Repair type: rotation flap Mohs accession #: [id number] Surgeon and Pathologist: John Timmons MD served as both surgeon and pathologist. No other physician was involved in the cancer removal or pathology interpretation. Assistants: Nicholas Mederos MD Indications for Mohs Surgery Removal of the patient's tumor is complicated by the following clinical features: Clinical area critical for tissue conservation (Area H: central face, eyelids, eyebrows, nose, lips, chin, ear, periauricular, jain, genitalia, hands, feet, ankles, nail units and areola), aggressive pattern on initial pathology. Based on my medical judgement, Mohs surgery is the most appropriate treatment for this cancer compared to other treatments. I discussed alternative treatments to Mohs surgery and specifically discussed the risks and benefits of curettage, excision with permanent sections, and foregoing treatment. The rationale for Mohs was explained to the patient and consent was obtained. The risks, benefits and alternatives to therapy were discussed in detail. Specifically, the risks of infection, scarring, bleeding, prolonged wound healing, incomplete removal, allergy to anesthesia, nerve injury and recurrence were addressed. Prior to the procedure, the treatment site was clearly identified and confirmed by the patient. All components of Bailey Protocol/PAUSE Rule completed. STAGE I: The patient was placed on the operating table. The cancer was identified and outlined. The entire surgical field was prepped with hibiclens. The surgical site was anesthetized using Lidocaine 1% with epinephrine 1:100,000 buffered with sodium bicarbonate 8.4% in a 1:10 ratio.The area of clinically apparent tumor was debulked with a 2 mm curette. The layer of tissue was then surgically excised using a #15 blade and was then transferred onto a specimen sheet maintaining the orientation of the specimen. Hemostasis was obtained using monopolar electrodesiccation. The wound site was then covered with a dressing while the tissue samples were processed for examination. The specimen was oriented, mapped and divided. Each section was then inked and processed in the Mohs lab using the Mohs protocol and submitted for frozen section. The histopathologic sections were reviewed by the surgeon in conjunction with the reference map. Total blocks: 1 Total slides: 3 Frozen sections were examined by the surgeon. No additional tumor was identified. No additional histologic findings appreciated. Cell morphology: N/A. No tumor seen. Pathological pattern: N/A. No tumor seen. Depth of invasion: N/A. No tumor seen. Scar tissue: Not Present Perineural invasion: Not Present Inflammation obscuring possible tumor presence: Not Present [facility] CLIA # [id number] Mohs blood and plasma laboratory assistant: Mena Masterson MD REPAIR: Rotation Flap Primary Surgeon: John Timmons MD Concrete Pavement Installer: Nicholas Mederos MD Repair Size/Flap Dimensions: 3.0 x 4.0 cm Sutures: 4-0 monocryl, 6-0 prolene Indication for flap: A flap was chosen because closing the wound by second intention, primary linear closure, or when skin grafting would result in a functionally unsatisfactory result. Additionally, a flap was chosen to recruit additional tissue, displace tension away from the defect and any nearby free margins, as well as to reorient tension vectors in more favorable directions. The defect was identified and a marking pen was used to plan the repair. The area was infiltrated with Lidocaine 1% with epinephrine 1:100,000 buffered with sodium bicarbonate 8.4% in a 1:10 ratio, prepped with iodine and draped with sterile towels. The flap was incised using a #15 blade to adipose and undermined widely. The defect was debeveled and undermined and an adjacent standing cone was removed. Hemostasis was obtained using monopolar electrodesiccation. The flap was rotated into place and secured with buried vertical mattress sutures placed in the dermis and subcutaneous tissue. An additional standing cone was removed opposite the flap to minimize tissue deformity. Percutaneous simple running sutures were carefully placed for maximum eversion and meticulous wound edge approximation. Careful attention was paid to avoid distorting any nearby free margins. The wound was cleansed with saline and ointment was applied along the wound surface. A sterile pressure dressing was applied. Wound care instructions were given verbally and in writing. The patient left the operating suite in stable condition. Patient was informed that additional refinement of the resulting surgical scar may be used as a second stage of this reconstruction. Postoperative amoxicillin 875mg two times daily x7 days was/were sent to the patient's pharmacy. The patient will follow up in 1 week(s) for suture removal . Darren (Nicholas) MD Rosa M Mohs MSDO Fellow, PGY5 A procedure was performed. I was present for the luna portions of the procedure and was always immediately available. I have reviewed the note and edited it as necessary. Date of Service : 10/08/2023 John Timmons MD John Timmons MD PROCEDURE/MINOR SURG ICAL ORDERABLES * PROC BIOPSY OF SKIN LESION (09/04/2023 5:14 PM NEEDLE MAKER) Narrative Rola Dave MD - 09/04/2023 5:14 PM NEEDLE MAKER Ulises Sexton MD ? 09/13/2023 12:24 PM Risks, benefits and alternatives to shave biopsy were discussed with the patient. Verbal consent obtained. Location: Left upper cutaneous lip Skin prep: Alcohol Anesthesia: 1% lidocaine with epinephrine Hemostasis: Aluminum Chloride Dressing and wound care discussed. Patient agrees to [employer] or Fylet message for results if not available. Ulises Sexton MD Internal Medicine Resident Rola Dave MD PROCEDURE/ARTHUR R SURGICAL ORDERABLES * PROC DESTRUCTION OF PRE-MALIGNANT LESIONS (09/04/2023 5:13 PM NEEDLE MAKER) Narrative Rola Dave MD - 09/04/2023 5:13 PM NEEDLE MAKER Ulises Sexton MD ? 09/13/2023 12:24 PM Diagnosis and treatment options discussed. Liquid nitrogen was applied to 2 lesions (see office visit note for locations) for 6-10 seconds each for 1 cycle. Wound care reviewed. Rola Dave MD PROCEDURE/ARTHUR R SURGICAL ORDERABLES * DERMATOPATHOLOGY (09/04/2023 3:33 AM NEEDLE MAKER) Only the most recent of2 resultswithin the time period is included. Case Report Dermatopathology Report ? Case: [id number] ? Authorizing Provider: ??Rola Dave, ?? Collected: ? 09/04/2023 03:33 AM ? MD ? Ordering Location: ? [facility] - Dermatology ?Received: ?09/05/2023 08:37 AM ? Pathologist: ? Caroilne Russo MD ? Specimen: ?Skin, left upper cutaneous lip ? 4 2:14 PM NEEDLE MAKER DERMATOPATHOLOGY LABORATORY Final Diagnosis Specimen A. SKIN, left upper cutaneous lip: BASAL CELL CARCINOMA, INFILTRATIVE PATTERN (C44.319) 4 2:14 PM NEEDLE MAKER DERMATOPATHOLOGY LABORATORY Clinical History BCC vs SCC 4 2:14 PM NEEDLE MAKER DERMATOPATHOLOGY LABORATORY Gross Description Specimen A: Received is one formalin filled container labeled with the patient's name and designated left upper cutaneous lip. The specimen consists of a(2) pieces shave biopsy measuring 3x4x1,2x2x1 mm. Jar 0. 2:14 PM [facility] DERMATOPATHOLOGY [facility]ORATORY Microscopic Description Specimen A. SKIN, left upper cutaneous lip: Within the dermis there are nodular aggregates of basaloid cells associated with fibromyxoid stroma and epithelial-stromal clefts. At the advancing margin of the neoplasm, there are smaller angulated nests that infiltrate the dermis. 4 2:14 PM [facility] DERMATOPATHOLOGY [facility]OR[facility] Disclaimer An external and internal positive and negative controls are appropriate for the histochemical, immunohistochemical and immunofluorescence stain(s) in this case (if any), except where stated explicitly. The performance characteristics of the stain(s) cited in this report were developed and its performance characteristic determined by the Dermatopathology Laboratory at [facility], directed by Dr. Michell Tsang. These tests need not be, and therefore are not, approved by the [place] Food and Drug Administration. The tests are used for clinical purposes. Billing Codes Specimen Charges Stain Charges 08125 1 4 2:14 PM [facility] DERMATOPATHOLOGY [facility] Embedded Images 2:14 PM [facility] DERMATOPATHOLOGY [facility] Pathology/Cytolo gy TISSUE SPECIMEN FROM SKIN / Unknown 09/04/2023 3:33 AM NEEDLE MAKER 09/05/2023 8:37 AM NEEDLE MAKER Rola Dave MD LAB - PATHOLOG Y/CYTOLOGY ORDERABLES DERMATOPATHOLOGY LABORATORY [facility] - Department of Dermatology [address], [address] [phone] * SC DESTRUCT BENIGN LESION, 1-14 (04/25/2022 11:45 AM CDT) Narrative Rola Dave MD - 04/25/2022 11:45 AM CDT Darren Mederos MD ? 04/25/2022 11:45 AM Diagnosis and treatment options discussed. Cryotherapy (Liquid Nitrogen) to iSKs x 4 on R cheek, R neck, R hand + forearm x 6-10 seconds each. Number of cycles: 1. Wound care reviewed. Rola Dave MD PROCEDURE/ARTHUR R SURGICAL ORDERABLES * SC DESTROY PREMALIG LESION, 1ST LESION (04/25/2022 11:23 AM CDT) Narrative Rola Dave MD - 04/25/2022 11:23 AM CDT Darren Mederos MD ? 04/25/2022 11:23 AM Diagnosis and treatment options discussed. Cryotherapy (Liquid Nitrogen) to AK x1 on L forehead x 6-10 seconds each. Number of cycles: 1. Wound care reviewed. Rola Dave MD PROCEDURE/ARTHUR R SURGICAL ORDERABLES * SC TANGNTL BX SKIN SINGLE LES (04/25/2022 11:22 AM CDT) Narrative Rola Dave MD - 04/25/2022 11:22 AM CDT Darren Mederos MD ? 04/25/2022 11:23 AM Risks, benefits and alternatives to shave biopsy were discussed with the patient. Verbal consent was obtained. Encounter Diagnoses Name Primary? ? ? Neoplasm of uncertain behavior of skin Yes ? ? Actinic keratosis ? Multiple benign melanocytic nevi of upper and lower extremities and trunk ? Solar lentiginosis ? Seborrheic keratosis ? Seborrheic keratosis, inflamed ?? Location: R nasal root Skin prep: Alcohol Anesthesia: 1% lidocaine with epinephrine Hemostasis: Aluminum chloride Dressing and wound care discussed. Specimen(s) placed in a patient labeled container and sent to [facility] Dermatopathology. Patient agrees to phone call for results and message if not available. Darren Mederos MD Rola Dave MD PROCEDURE/ARTHUR R SURGICAL ORDERABLES * SC DESTROY PREMALIG LESION, 2-14, SC DESTROY PREMALIG LESION, 1ST LESION (11/11/2018 2:35 PM CDT) Narrative Maria E Mojica MD - 11/11/2018 2:35 PM CDT Remington Angeles MD ? 11/09/2018 11:57 AM Diagnosis and treatment options discussed. Cryotherapy (Liquid Nitrogen) to 3 lesions on the forehead x 1, nose x 2 for 5-7 seconds each. Number of cycles: 1. Wound care reviewed. Maria E Mojica MD PROCEDURE/MINOR KAN RGICAL ORDERABLES Care Teams Planer Stone Relationship Specialty Start Date End Date Berna Carson MD [address] [place] [address] PCP - General 03/09/18
--- OUTSIDE RECORDS SUMMARY | 2024-09-07 01:00 | XMS_ITS | Patient Health Record ---
Author Organization [facility] Address [address] [place] [address] Care Team Providers Care Sweet Dough Mixer Name Role Phone Hans Maxx Unavailable [phone] REASON FOR REFERRAL No Information SOCIAL HISTORY Sex Assigned At : Social History Observation Description Sex Assigned At Female PROBLEMS Problem Type ICD Code Onset Dates Problem Status W/U Status Risk SNOMED Code Notes Problem Essential (primary) hypertension (I10) Active confirmed Essential hypertension (36070675) Problem Chronic obstructive pulmonary disease, unspecified (J44.9) Active confirmed Chronic obstructive pulmonary disease (42582624) Problem Type 2 diabetes mellitus without complications (E11.9) Active confirmed Type II diabetes mellitus without complication (612501410) Problem Chronic kidney disease, stage 3b (N18.32) Active confirmed Chronic kidney disease stage 3B (disorder) (221409532) Encounters Encounter Location Date Provider Diagnosis [facility] [address] [place] [address] 07/01/2024 Maxx Maxwell Chronic kidney disease, stage 3b N18.32 ; Type 2 diabetes mellitus without complications E11.9 ; Essential (primary) hypertension I10 and Chronic obstructive pulmonary disease, unspecified J44.9 ASSESSMENTS Encounter Date Diagnosis Assessment Notes Treatment Notes Treatment Clinical Notes Section Notes 07/01/2024 Type 2 diabetes mellitus without complications (ICD-10 - E11.9) 07/01/2024 Chronic kidney disease, stage 3b (ICD-10 - N18.32) 07/01/2024 Essential (primary) hypertension (ICD-10 - I10) 07/01/2024 Chronic obstructive pulmonary disease, unspecified (ICD-10 - J44.9) PLAN OF TREATMENT No Information
--- OUTSIDE RECORDS SUMMARY | 2024-09-07 01:00 | XMS_ITS | Clinical Summary ---
Author Organization [facility] Address [address] [place] [address]. [place], [place] [address] [place] [id number] Care Team Providers Care Rag Cutting Machine Tender Name Role Phone None, Provider MD Primary Care Provider Unavaila ble Social History Tobacco Use Types Packs/Day Years Used Date Smoking Tobacco: Never Assessed Comments Unknown Sex and Gender Information Value Date Recorded Sex Assigned at Not on file Legal Sex Female 10:47 AM CDT Gender Identity Not on file Sexual Orientation Not on file Plan of Treatment Health Maintenance Due Date Last Done Comments Cervical Cancer Screening Pap Smear (Age 30 to 64) Every 3 Years 1960 Colorectal Cancer Screening Colonoscopy (10 Years) 1960 Annual Physical 1963 Hepatitis C 1978 DTaP, Tdap and Td Vaccines (1 - Tdap) 1979 Cervical Cancer Screening Pap with HPV Testing (Age 30 to 64) Every 5 Years 1990 Cervical Cancer Screening with HPV 1990 Mammogram Screening 2000 Zoster Vaccines (1 of 2) 2010 COVID-19 Vaccine ( season) 2024 11/01/2020, 10/11/2020, 07/31/2020, Additional history exists Influenza Adult (#1) 2024 RSV Immunization or 60+ Years (1 - 1-dose 75+ series) 2035 Meningococcal B Vaccine Aged Out No l onger eligible based on patient's age to complete this topic Meningococcal Vaccine Aged Out No dharmesh eugenia eligible based on patient's age to complete this topic Pneumococcal Vaccine: Pediatrics (0 to 5 Years) and At-Risk Patients (6 to 64 Years) Aged Out No longer eligible based on patient's age to complete this topic RSV Immunizations Under 20 Months Aged Out No longer eligible based on patient's age to complete this topic Insurance [employer] OF [employer] Care Teams Rag Cutting Machine Tender Relationship Specialty Start Date End Date None, Provider, PCP - General UNKNOWN PHYSICIAN SPECIALTY 01/27/24
--- OUTSIDE RECORDS SUMMARY | 2024-09-07 01:00 | XMS_ITS | Clinical Summary ---
Author Organization [facility] Address [address] [place] [id number] Care Team Providers Care Microfiche Duplicator Name Role Phone Leandro Landry MD Unavailable [phone] Aris Maxwell MD Unavailable Claudio Kohler MD Primary Care Provider Allergies Active Allergy Reactions Criticality Noted Date Comments Amlodipine Swelling High 08/05/2022 Clarithromycin Rash,Other (See comments) Medium 05/19/2018 Stomach pain. Clindamycin Rash Medium 11/09/2018 Doxepin Fatigue,Other (See comments) High 02/15/2019 Lisinopril Swelling,Anaphylaxis ,Swo llen tongue High 04/02/2015 Tongue swelling Naproxen Other (See comments),Nausea And Vomiting,Nausea & Vomiting Low 05/19/2018 Stomach pain Stomach pain. Stomach pain Ranolazine Dizziness Low 04/02/2015 Venlafaxine Other (See comments) Low 04/21/2024 Medications budesonide-form oterol (SYMBICORT) 160-4.5 mcg/actuation inhaler inhale 2 puff by inhalation route 2 times every day in the morning and evening 0 Inhaler 0 015 Active albuterol HFA (VENTOLIN HFA) 90 mcg/actuation inhaler inhale 2 puff by inhalation route every 4 - 6 hours as needed 0 Inhaler 0 017 Active levothyroxine (SYNTHROID) 100 mcg tablet Take 1 tablet (100 mcg total) by mouth daily Active fluticasone (FLONASE) 50 mcg/actuation nasal spray One spray each nostril daily Active atorvastatin (LIPITOR) 80 mg tablet Take 1 tablet (80 mg total) by mouth daily Active albuterol 0.63 mg/3 mL nebulizer solution Take 3 mL (0.63 mg total) by nebulization every 6 (six) hours as needed for wheezing Active aspirin 81 mg enteric coated tablet Take 1 tablet (81 mg total) by mouth daily 30 tablet 1 Active docusate sodium (COLACE) 100 mg capsuleIndicati ons:constipatio n Take 1 capsule (100 mg total) by mouth 2 (two) times a day Active furosemide (LASIX) 20 mg tablet Active isosorbide mononitrate ER (IMDUR) 120 mg 24 hr tablet isosorbide mononitrate ER 120 mg tablet,extended release 24 hr Active famotidine (PEPCID) 20 mg tablet Active metoprolol tartrate (LOPRESSOR) 25 mg immediate release tablet Take 1 tablet (25 mg total) by mouth 2 (two) times a day Active nitroglycerin (NITROSTAT) 0.4 mg SL tablet Active naloxone (NARCAN) 4 mg/actuation spray,non-aeros ol Administer 1 spray into affected nostril(s) as needed for opioid reversal or respiratory depression Call 911. Administer a single spray in one nostril. Repeat every 3 minutes as needed if no or minimal response. 2 each Active montelukast (SINGULAIR) 10 mg tablet Active nitrofurantoin monohydrate (MACROBID) 100 mg capsuleIndicati ons:Acute cystitis without hematuria TAKE 1 CAPSULE(100 MG) BY MOUTH TWICE DAILY FOR 7 DAYS 14 capsule 023 Active lidocaine (LIDODERM) 5 % Place 1 patch on the skin daily Active busPIRone (BUSPAR) 10 mg tablet Take 1 tablet (10 mg total) by mouth 2 (two) times a day Active divalproex ER (DEPAKOTE ER) 500 mg 24 hr tablet Take 2 tablets (1,000 mg total) by mouth nightly Active hydrOXYzine (ATARAX) 50 mg tablet Take by mouth nightly Active venlafaxine XR (EFFEXOR-XR) 150 mg 24 hr capsule Take 1 capsule (150 mg total) by mouth every morning Active insulin regular U-500 (HumuLIN R U-500) 500 unit/mL (3 mL) CONCENTRATED pen for injectionIndica tions:Type 2 diabetes mellitus with hyperglycemia, with long-term current use of insulin ([facility]) Take 5-20 units before breakfast and dinner as instructed on a sliding scale 15 mL 3 023 Active gabapentin (NEURONTIN) 100 mg capsuleIndicati ons:Diabetic Peripheral Neuropathy Take 1 capsule (100 mg total) by mouth 2 (two) times a day 180 capsule 1 023 Active blood glucose diagnostic (True Metrix Glucose Test Strip) stripIndication s:Type 2 diabetes mellitus with hyperglycemia, with long-term current use of insulin ([facility]) CHECK BLOOD SUGAR THREE TIMES DAILY. Type 2 diabetes mellitus with hyperglycemia, with long-term current use of insulin . E11.65, Z79.4 300 each 3 023 Active baclofen (LIORESAL) 20 mg tablet TAKE 1 TABLET BY MOUTH THREE TIMES A DAY NEEDED [address] (CYMBALTA) 60 mg capsule Take 1 capsule (60 mg total) by mouth every morning 023 Active meloxicam (MOBIC) 7.5 mg tablet Take 1 tablet (7.5 mg total) by mouth 2 (two) times a day 024 Active lancets (OneTouch Delica Plus Lancet) 33 gauge misc USE 1 EACH 3 (THREE) TIMES A DAY BEFORE MEALS 100 each 3 024 Active diazePAM (VALIUM) 10 mg tablet TAKE 1 TABLET BY MOUTH THREE TIMES A DAY NEEDED FOR ANXIETY 024 Active fexofenadine (MAKENZIE) 60 mg tablet TAKE 1 TABLET BY MOUTH TWICE A DAY DIRECTED Active LORazepam (ATIVAN) 2 mg tablet TAKE 1 TABLET BY MOUTH 30 MINUTES BEFORE PROCEDURE AND 1 TABLET RIGHT BEFORE PROCEDURE 024 Active isosorbide mononitrate ER (IMDUR) 30 mg 24 hr tablet Take 1 tablet (30 mg total) by mouth daily Active pantoprazole DR (PROTONIX) 40 mg EC tablet TAKE 1 TABLET BY MOUTH EVERY DAY BEFORE MEALS Active semaglutide (OZEMPIC) 1 mg/dose (4 mg/3 mL) pen injector injectionIndica tions:type 2 diabetes mellitus Inject 1 mg under the skin every 7 days 9 mL 3 024 2024 Active insulin degludec (TRESIBA) 200 unit/mL (3 mL) pen for injectionIndica tions:Type 2 diabetes mellitus with hyperglycemia, with long-term current use of insulin ([facility]) Inject 0.38 mL (76 Units total) under the skin daily 45 mL 2 024 2024 Active blood-glucose meter kitIndications: Type 2 diabetes mellitus with hyperglycemia, with long-term current use of insulin ([facility]) One Touch Ultra Test blood sugars tid Dx:E11.65 insulin dependent 1 kit 024 Active alcohol swabs (Alcohol Prep Pads) pads, medicatedIndica tions:Type 2 diabetes mellitus with hyperglycemia, with long-term current use of insulin ([facility]) USE ONE SWAB 3 TIMES A DAY DIRECTED 100 each 7 Active pen needle, diabetic (BD Virgen 2nd Gen Pen Needle) 32 gauge x 5/32 needleIndicatio ns:Type 2 diabetes mellitus with hyperglycemia, with long-term current use of insulin ([facility]) USE TO INJECT INSULIN UP TO 4 TIMES A DAY 400 each 3 024 Active OneTouch Ultra Test strip CHECK BLOOD SUGAR THREE TIMES A DAY OR DIRECTED 100 strip 3 Active clopidogreL (PLAVIX) 75 mg tablet Take 1 tablet (75 mg total) by mouth daily Active HYDROcodone-betsy taminophen (NORCO) 7.5-325 mg per tabletIndicatio ns:Pain Take 1 tablet by mouth every 8 (eight) hours as needed for pain 90 tablet 025 2024 Active HYDROcodone-betsy taminophen (NORCO) 7.5-325 mg per tabletIndicatio ns:Pain Take 1 tablet by mouth every 8 (eight) hours as needed for pain 90 tablet 025 2024 Active blood glucose diagnostic (OneTouch Ultra Test) strip CHECK BLOOD SUGAR THREE TIMES A DAY OR DIRECTED 100 strip 3 024 2024 Discontinued HYDROcodone-betsy taminophen (NORCO) 7.5-325 mg per tabletIndicatio ns:Pain Take 1 tablet by mouth every 8 (eight) hours as needed for pain 90 tablet 024 2024 Discontinued(R eorder) HYDROcodone-betsy taminophen (NORCO) 7.5-325 mg per tabletIndicatio ns:Pain Take 1 tablet by mouth every 8 (eight) hours as needed for pain 90 tablet 024 2024 Discontinued(R eorder) Active Problems Problem Noted Date Diagnosed Date Cervical spinal stenosis 03/09/2024 Dysuria 12/08/2022 Assessment & Plan (12/08/2022 1:33 PM CDT): New problem. UA/CX ordered. Will update labs today. Verified phone #/address to contact re: results. Do not hold your urine. Urinate as soon as you feel the need to go Drink plenty of water and fluids. Limit alcohol, caffeine, and citrus juices- They will irritate the bladder Wipe front to back & wear cotton underwear Try emptying your bladder before and after having sexual intercourse Follow up with your PCP if you are not getting better If you have severe back, flank, or groin pain with nausea/vomiting or are unable to get comfortable from the pain, please go to ER for further treatment Tylenol/Motrin for pain Degeneration of lumbar intervertebral disc 09/09 Chronic pain syndrome 09/09/2022 Acquired hypothyroidism 12/24/2021 Assessment & Plan (04/21/2024 10:55 AM CDT): Chronic problem. Managed by PCP. Currently taking levothyroxine 100mcg daily. Aware to take 1st thing in morning, 30-60 minutes before food/drink/other medications. Assessment & Plan (08/27/2023 12:19 PM SHIRT MAKER): Chronic problem. Managed by PCP. Currently taking levothyroxine 100mcg daily Assessment & Plan (02/27/2022 12:30 PM CDT): Chronic problem, PCP adjusted LT4 based on labs yesterday. She asks about her thyroid nodules as she feels they're getting bigger, but clinical exam is benign and she points to submandibular area on exam. I recommended she f/u with ENT, since they have done her previous US and biopsies, so they have her records. If she has concerns about enlarged lymph nodes then they would be able to address this as well. Assessment & Plan (12/24/2021 10:18 AM CDT): Thyroid function tests, including TSH and free T4 were requested Will adjust dose of Levothyroxine accordingly . If there is a need to make changes, will recheck levels in 2-3 months. Instructions to patient on taking medication properly : in the morning, on an empty stomach , 1 h part from food and/or other meds. Long-term current use of opiate analgesic 2021 Lumbosacral spondylosis without myelopathy 08/12 Spinal stenosis of lumbar re gion without neurogenic claudication 08/12/2021 Chronic pain of both shoulders 07/17/2021 Myalgia 07/17/2021 Radiculopathy, lumbosacral region 07/17/2021 Chronic bilateral low back pain with bilateral s ciatica 07/17/2021 Coronary artery disease 11/21/2020 Overview (11/21/2020): Added automatically from request for surgery [id number] Coronary artery disease invo lving [place] coronary artery of [place] heart without angina pectoris 11/21/2020 Overview (12/14/2020): Added automatically from request for surgery [id number] Enthesopathy of hip region 08/16/2020 Obstructive sleep apnea syndrome 11/23/2018 Arthritis of hip 02/09/2018 Class 2 severe obesity due t o excess calories with serious comorbidity and body mass index (BMI) of 35.0 to 35.9 in adult 01/07/2018 Assessment & Plan (04/16/2018 2:30 PM CDT): Needs to be compliant with diet. Advised chair exercise daily with hand weight and stretch bands Assessment & Plan (01/07/2018 3:02 PM CDT): Importance of following diet and exercising discussed. Hyperlipidemia associated with type 2 diabetes judith chanel 03/17/2017 Assessment & Plan (04/21/2024 10:52 AM CDT): Chronic problem. Controlled on current Atorvastatin 80mg. Last lipid panel: 12/08/22 LDL=63, YB=261. Will update labs today. Does not mychart. Verified phone #/address to contact re: results. Assessment & Plan (08/27/2023 11:56 AM SHIRT MAKER): Chronic problem. Controlled on current Atorvastatin 80mg. Last lipid panel: 12/08/22 LDL=63, DJ=503. No changes at this time. Assessment & Plan (05/19/2023 1:16 PM CDT): Chronic problem. Controlled on current Atorvastatin 80mg. Last lipid panel: 12/08/22 LDL=63, JU=938. No changes at this time. Assessment & Plan (12/08/2022 1:13 PM CDT): Chronic problem. Controlled on current Atorvastatin 80mg. Last lipid panel: 12/24/21 LDL=67, IA=637. No changes at this time. Will update labs today. Verified phone #/address to contact re: results. Assessment & Plan (08/18/2022 10:22 AM SHIRT MAKER): Chronic problem. On statin therapy, no changes. Assessment & Plan (02/27/2022 10:22 AM CDT): Chronic problem. On statin therapy, no changes. Assessment & Plan (12/24/2021 10:17 AM CDT): Chronic, well controlled Low fat Low cholesterol diet Exercise Continue statin therapy Check lipid profile Assessment & Plan (06/06/2021 11:16 AM CDT): Chronic problem. On statin therapy, no changes. Assessment & Plan (08/19/2020 3:45 PM SHIRT MAKER): Continue statin Assessment & Plan (12/13/2018 8:43 AM CDT): At goal on current medications. Assessment & Plan (08/28/2018 1:22 PM SHIRT MAKER): Check lipid panel Assessment & Plan (04/16/2018 2:31 PM CDT): Continue statin therapy Assessment & Plan (01/07/2018 3:01 PM CDT): Continue lovastatin Assessment & Plan (08/27/2017 1:12 PM SHIRT MAKER): Goal of treatment , LDL cholesterol less than 100 ( less than 70 in patients with history of heart attacks and / or strokes ) NonHDL cholesterol goal less than 130 ( less than 100 in patients with history of heart attacks and / or strokes ) Continue statin therapy Assessment & Plan (03/17/2017 9:22 AM CDT): Goal of treatment , LDL cholesterol less than 100 ( less than 70 in patients with history of heart attacks and / or strokes ) NonHDL cholesterol goal less than 130 / 100 Lipids at goal. Continue statin therapy Low cholesterol diet, exercise advised. Diabetic peripheral neuropat hy associated with type 2 diabetes mellitus ([facility]) 03/17/2017 Assessment & Plan (04/21/2024 10:53 AM CDT): Chronic problem. Currently taking gabapentin 100mg bid. Reviewed foot care; needs to lotion daily. Aware to check feet nightly, not to go barefoot. Assessment & Plan (08/27/2023 11:56 AM SHIRT MAKER): Chronic problem. Currently taking gabapentin 100mg bid. Aware to check feet nightly & not go barefoot. Assessment & Plan (05/19/2023 1:17 PM CDT): Chronic problem. Currently taking gabapentin 100mg bid. Aware to check feet nightly. To wear shoes. Assessment & Plan (12/08/2022 1:32 PM CDT): Chronic problem. Aware to check feet nightly. To wear shoes. Gabapentin 100mg bid sent. Reviewed medication SE & Scheduling. Assessment & Plan (07/12/2019 9:28 AM SHIRT MAKER): Foot care discussed Start Gabapentin. Assessment & Plan (01/07/2018 3:00 PM CDT): Schedule follow up with ear specialist. Foot care and driving risks reviewed. Assessment & Plan (03/17/2017 9:41 AM CDT): Restart Carolann Foot care discussed Diabetes mellitus 04/02/2015 Assessment & Plan (04/21/2024 11:14 AM CDT): Chronic problem. Not at goal but A1c has improved from 8.3% 08/27/23 to now 7.7% -increased Ozempic from 0.5mg to 1mg weekly. Aware to monitor BG & may need to decrease Tresiba with increase ozempic. Current medications: Ozempic 1 mg weekly (switched 02/08/24 from trulicty) Tresiba 50 units every morning & 25 units in afternoon U500 before breakfast & dinner: (not needing as frequently, may take every other day or daily) If blood sugar is <150, do not take any If blood sugar is between 150-200, take 5 units. If blood sugar is between 200-250, take 10 units. If blood sugar is between >250, take 15 units. Will update labs today. Does not mychart. Verified phone #/address to contact re: results. Had DM eye appt scheduled 05/2023 at [facility] but missed appt. Aware to call to reschedule. Strive for regular exercise (30min most days) and diet (get at least 4-5 servings of fruit and veggies daily, avoid processed foods, increase lean protein intake and decrease carb portions as well as fruit juices, regular soda & desserts). Watch carbs and simple sugars. Check the feet daily for skin breakdown and infection. Assessment & Plan (08/27/2023 12:54 PM SHIRT MAKER): Chronic problem. Not at goal. A1c has remained stable at 8.3% Will increase Trulicity from 3mg to 4.5mg weekly. Discussed possible shortage; states she has 6 weeks left. Will call if any difficulty obtaining the 4.5mg dose of Trulicity. Discussed moving to [facility] if unable to obtain Trulicity. Current medications: Trulicity 4.5mg weekly Tresiba 75units every morning U500 before breakfast & dinner: If blood sugar is <150, do not take any If blood sugar is between 150-200, take 5 units. If blood sugar is between 200-250, take 10 units. If blood sugar is between >250, take 15 units. UTD on labs. Had DM eye appt scheduled 05/2023 at [facility] but missed appt. Aware to call to reschedule. Strive for regular exercise (30min most days) and diet (get at least 4-5 servings of fruit and veggies daily, avoid processed foods, increase lean protein intake and decrease carb portions as well as fruit juices, regular soda & desserts). Watch carbs and simple sugars. Check the feet daily for skin breakdown and infection. Assessment & Plan (05/19/2023 1:42 PM CDT): Chronic problem. Not at goal. A1c worsened from 7.7% to now 8.3% Current medications: Farxiga 10mg daily Trulicity 3mg weekly Tresiba 75units every morning U500 before breakfast & dinner: If blood sugar is <150, do not take any If blood sugar is between 150-200, take 5 units. If blood sugar is between 200-250, take 10 units. If blood sugar is between >250, take 15 units. UTD on labs. Has DM eye appt scheduled next week at [facility]. Letter will be sent to get copy of report. Strive for regular exercise (30min most days) and diet (get at least 4-5 servings of fruit and veggies daily, avoid processed foods, increase lean protein intake and decrease carb portions as well as fruit juices, regular soda & desserts). Watch carbs and simple sugars. Check the feet daily for skin breakdown and infection. Assessment & Plan (12/08/2022 1:35 PM CDT): Chronic problem. Not at goal but A1c improved from 8.1% 08/18/22 to now 7.7%, Current medications: Farxiga 10mg daily Trulicity 3mg weekly Tresiba 75units every morning U500 before breakfast & dinner: If blood sugar is <150, do not take any If blood sugar is between 150-200, take 5 units. If blood sugar is between 200-250, take 10 units. If blood sugar is between >250, take 15 units. Will update labs today. Verified phone #/address to contact re: results. To call to schedule eye exam. Strive for regular exercise (30min most days) and diet (get at least 4-5 servings of fruit and veggies daily, avoid processed foods, increase lean protein intake and decrease carb portions as well as fruit juices, regular soda & desserts). Watch carbs and simple sugars. Check the feet daily for skin breakdown and infection. Assessment & Plan (08/18/2022 10:39 AM SHIRT MAKER): Chronic problem, not at goal. A1c higher (partially due to steroid use) but having severe hypoglycemia into 40s at least twice a week overnight. She is typically only taking aD U500 right now at low dose around 5p, and lows happening around 3 am. We reviewed risk of hypoglycemia especially given her CAD history. Medication adjustments below. She still has quite a bit of U500 left but discussed holding on filling this when she runs out so we can change to less concentrated insulin. Continue Farxiga. Increase Trulicity to 4.5 mg once a week. Lower Basaglar to 80 units and only take it once in the morning. If you are still having low sugars overnight, decrease to 70 units. Call us if you're still having lows or any questions about insulin adjustment. When you run out of U500 (or getting close), DO NOT refill it. We will change it to U100 insulin which is less concentrated and we can be more specific with your sliding scale so less risk of low blood sugars. Assessment & Plan (02/27/2022 12:28 PM CDT): Chronic problem, improving but not at goal. Restart Farxiga 10 mg. Increase Trulicity to 3 mg weekly. Decrease Basaglar to 70 units once a day. Humulin R U500 at your meals if needed (only dose it based on your blood sugar level before meals). If blood sugar is <150, do not take any If blood sugar is between 150-200, take 5 units. If blood sugar is between 200-250, take 10 units. If blood sugar is between >250, take 15 units. Call if any issues, especially low blood sugars. Assessment & Plan (12/24/2021 10:16 AM CDT): Hba1c was Lab Results Component Value Date HGBA1C 8.6 12/24/2021 today, indicating poor DM control Goal Hba1c and blood glucose explained Diet and exercise were advised Prevention and treatment of hyypoglcyemia were discussed with the patient Blood glucose monitoring : ac and hs ( pt not interested in CGM ) Adjustment to medications: Check your sugars before meals and bedtime Stay onToujeo , 100 units once a day , in the morning U500 before brealkfast and dinner If blood sugar is <120, do not take any If blood sugar is between 120-200, take 5 units. If blood sugar is between 200-250, take 10 units. If blood sugar is between >250, take 15 units. Start Trulicity 0.75 mg weekly x 4 wks Give a call in 2-3 weeks, to let me know of any side effects, nausea or vomiting Start Farxiga, 10 mg tab in the morning. Let me know if your sugars start going low, so we can adjust the dose of the insulin Assessment & Plan (06/06/2021 12:55 PM CDT): Chronic problem, improving per A1c with significant dietary changes, but having frequent and severe hypoglycemia. She has a lot of U500 left and prefers to use this up first due to cost if she can. Decrease Toujeo to 80 units once a day in the morning. U500 only at BK and DN (not lunch to avoid insulin stacking overnight). If blood sugar is <120, do not take any If blood sugar is between 120-200, take 5 units. If blood sugar is between 200-250, take 10 units. If blood sugar is between >250, take 15 units. She will send updated readings in 1 week to review, sooner if still having lows. We discussed CGM but she declines for now, will consider. If continues to have lows with U500 we may need to stop this for HL for shorter duration of action, but will monitor. Schedule eye exam. Assessment & Plan (08/19/2020 3:49 PM SHIRT MAKER): A1c 8.1. Will try to get Omnipod as this may be beneficial in being able to address BG patterns throughout the day. Will also try for U500 pump later in the year when available. Assessment & Plan (05/03/2020 4:52 PM CDT): A1c 7.9. Somewhat improved. Will not recommend any changes to insulin plan today. Main issue is related to stress, depressed mood. Recommend that she follow up with PCP. Provided with resource to check for a therapist in [place] for support with family situation. Assessment & Plan (07/12/2019 9:28 AM SHIRT MAKER): Your Hba1c today was: Lab Results Component Value Date HGBA1C 8.5 (A) 07/12/2019 meaning a 3 month average sugar of : 197 Your goal hba1c is under 7.0 to prevent residential diabetes complications ( eye , kidney and nerve damage ) . Your goal sugars are in the 90-130 range Exercise recommendations: It is recommended that you do daily aerobic ( walking, riding a bike, swimming ) and resistance exercises ( light weight lifting, resistance band stretching ) for at least 30 minutes , most days of the week. If you can not walk, chair exercises for 10-15 min a day would help tremendously. As little as 15-20 minutes exercise , in one or two sessions a day, is still very helpful to improve your diabetes control . Diet recommendations: Eat small portion meals, trying not to consume more than 1800 calories a day . Try to eat not more than than 2 servings of carbs ( starches ) wiith your meals. Avoid soft drinks, including regular sodas , fruit juices and sweetened tea. Drink water instead. Eat plenty of green and leafy vegetables, including salads. Medications: Take your medications regularly. Setting phone alarms can help . Keep your medication on the kitchen dinner table, by the bedside table or by the sink where they are visible to you. If you are taking insulin : the insulin that you are currently using does not need to be refrigerated. Keep it where you can see it . Monitor your sugar levels with finger sticks regularly and keep a log sheet or book. Bring your sugar meter and /or a log book or log sheet to every office visit. Take Humulin U500 on a sliding scale before meals as follows; For sugars under 90, none 91-150, 10 units 151-200 15 units 201-250 20 units 251-300 25 units 301-350 30 units Over 351 35 units Stay on Toujeo, same dose. Assessment & Plan (02/24/2019 11:29 AM CDT): Your Hba1c today was: Lab Results Component Value Date HGBA1C 7.9 % 02/24/2019 meaning a 3 month average sugar of : 177 Your goal hba1c is under 7.0 to prevent manager intermediate diabetes complications ( eye , kidney and nerve damage ) . Your goal sugars are in the 90-130 range Exercise recommendations: It is recommended that you do daily aerobic ( walking, riding a bike, swimming ) and resistance exercises ( light weight lifting, resistance band stretching ) for at least 30 minutes , most days of the week. If you can not walk, chair exercises for 10-15 min a day would help tremendously. As little as 15-20 minutes exercise , in one or two sessions a day, is still very helpful to improve your diabetes control . Diet recommendations: Eat small portion meals, trying not to consume more than 1800 calories a day . Try to eat not more than than 2 servings of carbs ( starches ) wiith your meals. Avoid soft drinks, including regular sodas , fruit juices and sweetened tea. Drink water instead. Eat plenty of green and leafy vegetables, including salads. Medications: Take your medications regularly. Setting phone alarms can help . Keep your medication on the kitchen dinner table, by the bedside table or by the sink where they are visible to you. If you are taking insulin : the insulin that you are currently using does not need to be refrigerated. Keep it where you can see it . Monitor your sugar levels with finger sticks regularly and keep a log sheet or book. Bring your sugar meter and /or a log book or log sheet to every office visit. Will request a continuous glucose monitor ( DEXCOM ) Assessment & Plan (12/13/2018 9:56 AM CDT): A1c 7.8, improving. Continue current medication plan. Assessment & Plan (08/28/2018 1:24 PM SHIRT MAKER): A1c 8.3. Improved. Have asked her to send in exact U 500 ssi she has been using and along with BG log. Will make adjustments at that time. Advised to be more thoughtful with diet. BG goals reviewed. Recommend trying OTC hot pepper cream. Assessment & Plan (04/16/2018 2:39 PM CDT): A1c increased to 10. 2. BG goals reviewed. To send in BG log to evaluate FBG. If mostly > 150 will need to increase Toujeo. Lunch and dinner hyperglycemia d/t lack of compliance with diet. Increase upper limit of U 500 ssi Humulin U 500 scale: Sugars under 90, none ?? 90-150 30 units 151-200 35 units 201-250 40 units 251-300 50 units 301-350 55 units Over 351 60 units Cerebrovascular accident (CVA) 04/02/2015 Hypertension associated with diabetes 09/13/2010 Assessment & Plan (04/21/2024 10:53 AM CDT): Chronic problem. Controlled on current Metoprolol tartrate 25mg bid, lasix 20mg daily & Imdur ER 120mg daily. Will update labs today. Does not mychart. Verified phone #/address to contact re: results. Assessment & Plan (08/27/2023 11:56 AM SHIRT MAKER): Chronic problem. Controlled on current Metoprolol tartrate 25mg bid, lasix 20mg daily & Imdur ER 120mg daily. No changes at this time. Assessment & Plan (05/19/2023 1:17 PM CDT): Chronic problem. Controlled on current Metoprolol tartrate 25mg bid, lasix 20mg daily & Imdur ER 120mg daily. No changes at this time. Assessment & Plan (12/08/2022 1:13 PM CDT): Chronic problem. Controlled on current Metoprolol tartrate 25mg bid, lasix 20mg daily & Imdur ER 120mg daily. No changes at this time. Will update labs today. Verified phone #/address to contact re: results. Assessment & Plan (08/18/2022 10:22 AM SHIRT MAKER): Controlled on current medications, no changes. Assessment & Plan (02/27/2022 10:22 AM CDT): Controlled on current medications, no changes. Assessment & Plan (06/06/2021 11:15 AM CDT): Controlled on current medications, no changes. Assessment & Plan (08/19/2020 3:45 PM SHIRT MAKER): Continue current medication Assessment & Plan (05/03/2020 4:52 PM CDT): Controlled on current medications. Continue plan. Assessment & Plan (12/13/2018 8:44 AM CDT): Continue current medication. Check home BP readings Assessment & Plan (08/28/2018 1:21 PM SHIRT MAKER): Controlled on current medications. Assessment & Plan (04/16/2018 2:30 PM CDT): Controlled on current medications. Assessment & Plan (01/07/2018 3:02 PM CDT): Controlled on current medications. Assessment & Plan (08/27/2017 1:11 PM SHIRT MAKER): Goal blood pressure is less than 140/85 Low salt diet recommended Daily aerobic exercise Continue current meds, including BETSY-I or ARB Assessment & Plan (03/17/2017 9:23 AM CDT): Goal blood pressure is less than 140/85 Low salt diet recommended Daily aerobic exercise Continue current meds, including BETSY-I or ARB Chest pain 09/13/2010 Arteriosclerosis of coronary artery 08/26/2010 Resolved Problems Problem Noted Date Diagnosed Date Resolved Date BMI 34.0-34.9,adult 08/18/2022 12/09/19 23 Acute pain of left knee 05/06/2022 05/0 08/2022 Morbid (severe) obesity due to excess calories 02/27/2022 12/08/2022 Assessment & Plan (08/18/2022 10:37 AM SHIRT MAKER): Chronic problem, improving. Increase Trulicity. Assessment & Plan (02/27/2022 12:28 PM CDT): Chronic problem, not at goal. Adjust medications as above. Hip pain 08/16/2020 12/08/2022 Edema 11/23/2018 12/08/2022 Skin lesion of hand 05/19/2018 12/09/19 23 Face lesion 05/19/2018 12/08/2022 Uncontrolled type 2 diabetes mellitus with hyperglycemia, with long-term current use of insulin 03/17/2017 05/27/2022 Assessment & Plan (01/07/2018 3:04 PM CDT): A1c 9.2. Main issue is sugary drinks causing constant BG spikes throughout the day. Strongly advised no regular soda or sweet tea. Foot care reviewed. Needs to follow up with ear specialist. Assessment & Plan (08/27/2017 1:25 PM SHIRT MAKER): Your Hba1c today was: 9.1 meaning a 3 month average sugar of : 220 Your goal hba1c is under 7.0 to prevent manager intermediate diabetes complications ( eye , kidney and nerve damage ) . Your goal sugars are in the 90-130 range Daily aerobic ( walking, riding a bike, swimming ) and resistance exercises ( light weight lifting, resistance band stretching ) for at least 30 minutes is recommended If you can not walk, chair exercises is very acceptable. As little as 15-20 min daily exercise , in one or two sessions a day is still very helpful . Eat small portion meals, no more than 1800 calories Diet Try to eat not more than than 2-3 servings of carbs ( starches ) wiith your meals. Avoid soft drinks, including regular sodas , fruit juices and sweetened tea. Drink water instead. Eat plenty of green and leafy vegetables, including salads. Take your medications regularly,including your insulin injections. Monitor your sugar levels with finger sticks Regularly and keep a log sheet or book. Increase Toujoe to 75 Units twice a day , morning and night Humulin U500 before meals as follows: Sugars under 90, none 90-150 30 units 151-200 35 units 201-250 40 units 251-300 45 units 301-350 50 units Over 351 55 units Bring your sugar meter and /or a log book or sheet to every office visit. Assessment & Plan (03/17/2017 9:31 AM CDT): Hba1c was 8.4 today, indicating inadequate DM control 1800 calorie, consistent carb diet recommended 30 min daily aerobic and resistance exercise recommended Foot care discused. Prevention and treatment of hyypoglcyemia discussed. Dyslipidemia 09/13/2010 12/08/2022 Assessment & Plan (05/03/2020 4:52 PM CDT): Continue statin therapy Assessment & Plan (02/24/2019 11:30 AM CDT): Goal of treatment , LDL cholesterol less than 100 ( less than 70 in patients with history of heart attacks and / or strokes ) NonHDL cholesterol ( total cholesterol minus HDL cholesterol ) goal less than 130 ( less than 100 in patients with history of heart attacks and / or strokes ) Low cholesterol, low fat diet was discussed and advised. Daily exercise On statin therapy Shortness of breath 09/13/2010 12/09/19 23 Encounters Date Type Department Care Team Description 08/31/2024 9:55 AM SHIRT MAKER - 08/31/2024 11:59 PM SHIRT MAKER Hospital Encounter [facility] [address] [place] [id number] Baldo Montejo NP Diabetic peripheral neuropathy associated with type 2 diabetes mellitus (CMS/HCC) (FORMERLY [facility]) (Primary Dx); Myalgia; Long-term current use of opiate analgesic; Lumbosacral spondylosis without myelopathy; Spinal stenosis of lumbar region without neurogenic claudication; Chronic pain syndrome Discharge Disposition: Discharge to home or self care 07/05/2024 9:28 AM SHIRT MAKER - 07/05/2024 11:59 PM SHIRT MAKER Hospital Encounter [facility] [address] [place] [id number] Baldo Montejo NP Radiculopathy, lumbosacral region (Primary Dx); Chronic bilateral low back pain with bilateral sciatica; Long-term current use of opiate analgesic; Lumbosacral spondylosis without myelopathy; Spinal stenosis of lumbar region without neurogenic claudication; Chronic pain syndrome Discharge Disposition: Discharge to home or self care 06/20/2024 Telephone [facility] [address] [place] [id number] Hilda De Souza NP Med Management (Ozempic) from Last 3 Months Immunizations Name Administration Dates Next Due Pfizer SARS-CoV-2 Monovalent Vaccination (12+ Yrs) PURPLE 11/01/2020,10/11/2020,07/31/2020,2019 Surgical History Surgery Date Site/Laterality Comments TOTAL ABDOMINAL HYSTERECTOMY Hysterectomy, total TONSILLECTOMY Tonsillectomy CHOLECYSTECTOMY Cholecystectomy CARPAL TUNNEL RELEASE Bilateral CORONARY ANGIOPLASTY WITH STENT PLACEMENT 08/10/2018 - 08/09/2019 TRIGGER FINGER RELEASE Bilateral thumb NEUROPLASTY / TRANSPOSITION ULNAR NERVE AT ELBOW Bilateral DEBRIDEMENT TENNIS ELBOW Bilateral HEART SURGERY Medical History Medical History Date Comments Hypertension Hypertension Disease of thyroid gland Thyroid disease Hypercholesterolemia High choles terol Chronic coronary artery disease CAD Type 2 diabetes mellitus (HCC) Trigger thumb of both hands Sleep apnea Asthma GERD (gastroesophageal reflux disease) Stroke (FORM[facility]LY [facility]) TIA Thyroid nodule Skin cancer Uncontrolled type 2 diabetes mellitus with hyperglycemia, with long-term current use of insulin (FORMERLY [facility]) 03/17/2017 Class 2 severe obesity due t o excess calories with serious comorbidity and body mass index (BMI) of 35.0 to 35.9 in adult (FORMERLY [facility]) 01/07/2018 Family History Medical History Relation Name Comments Diabetes Brother 1 Diabetes mellit us; Stroke Brother 2 Stroke; Colon cancer Father Cancer, colon; Lung cancer Father Cancer, lung; Diabetes Mother Diabetes mellit us; Heart failure Mother Congestive hea rt failure; Melanoma Mother Melanoma; Thyroid disease Mother Thyroid diso rder; Lung cancer Sister 1 Cancer, lung; Diabetes Sister 2 Diabetes mellit us; Thyroid disease Sister 3 Thyroid diso rder; Relation Name Status Comments Brother 1 Brother 2 Father Mother Sister 1 Sister 2 Sister 3 Social History Tobacco Use Types Packs/Day Years Used Date Smoking Tobacco: Never Smokeless Tobacco: Never Alcohol Use Standard Drinks/Week Comments Yes 0 (1 standard drink = 0.6 oz pur e alcohol) Social Connection and Isolat ion Panel [NHANES] Answer Date Recorded In a typical week, how many times do you talk on the phone with family, friends, or neighbors? Three times a week 12/14/2020 How often do you get togethe r with friends or relatives? More than three times a week 12/14/2020 How often do you attend chur ch or hoahaoism services? Never 12/14/2020 Do you belong to any clubs o r organizations such as alevism groups, unions, fraternal or athletic groups, or school groups? No 12/14/2020 How often do you attend meet ings of the clubs or organizations you belong to? Never 12/14/2020 Are you , , di vorced, , never , or living with a partner? 12/14/2020 AUDIT-C Answer Date Recorded Q1: How often do you have a drink containing alc ohol? Never 12/24/2021 Average Number of Drinks Not on file 022 Frequency of Binge Drinking Not on file 12/08 Overall Financial Resource Strain (CARDIA) Answe r Date Recorded How hard is it for you to pa y for the very basics like food, housing, medical care, and heating? Not hard at all 12/14/2020 PHQ-2 Answer Date Recorded PHQ-2 Total Score (If total score is 3 or more points, staff should administer the PHQ-9) 2 12/24/2021 Hunger Vital Sign Answer Date Recorded Within the past 12 months, y ou worried that your food would run out before you got the money to buy more. Never true 12/15/19 21 Within the past 12 months, t he food you bought just didn't last and you didn't have money to get more. Never true 12/14/2020 PRAPARE - Transportation Answer Date Re corded In the past 12 months, has l ack of transportation kept you from medical appointments or from getting medications? No 02/2021 In the past 12 months, has l ack of transportation kept you from meetings, work, or from getting things needed for daily living? No 12/14/2020 Comments No Sex and Gender Information Value Date Recorded Sex Assigned at Not on file Legal Sex Female 12:18 AM SHIRT MAKER Gender Identity Not on file Sexual Orientation Not on file Obstetrics History Last Filed Vital Signs Vital Sign Reading Time Taken Comments Blood Pressure 111/61 08/31/2024 10:28 AM SHIRT MAKER Pulse 79 08/31/2024 10:28 AM SHIRT MAKER Temperature 36.4 ??C (97.5 ??F) 05/03/2024 10:19 AM C DT Respiratory Rate 17 08/31/2024 10:28 AM SHIRT MAKER Oxygen Saturation 100% 08/31/2024 10:28 AM SHIRT MAKER Inhaled Oxygen Concentration - - Weight 94.3 kg (208 lb) 04/21/2024 10:38 AM CDT Height 162.2 cm (5' 3.86 ) 04/21/2024 10:38 AM C DT Body Mass Index 35.86 04/21/2024 10:38 AM CDT Plan of Treatment Health Maintenance Due Date Last Done Comments Breast Cancer Screening-Mammogram 1960 Colon Cancer Screening-Colonoscopy 1960 Hepatitis C Screening 1960 Pneumococcal vaccine <65 (1 of 2 - PCV) 1966 DTaP/Tdap/Td Vaccine (1 - Tdap) 1971 Hepatitis B Screening 1978 Regular Well Visit/Exam 18-64 1978 Zoster Vaccine (1 of 2) 2010 Dilated Eye Exam 11/25/2018 11/25/2017 Depression Screening 12/24/2022 12/24/2021, 06/06/2021, 05/03/2020, Additional history exists Covid-19 Vaccine (5 - 2023-2 5 season) 2024 11/01/2020, 10/11/2020, 07/31/2020, Additional history exists Influenza Vaccine (#1) 2024 Hemoglobin A1C 10/19/2024 04/21/2024, 08/10, 05/19/2023, Additional history exists Albumin Creatinine Ratio, Urine 04/21/2025 04/21/2024, 12/08/2022, 12/24/2021, Additional history exists Foot Exam 04/21/2025 04/21/2024, 11/08, 02/27/2022, Additional history exists Lipid Panel 04/21/2025 04/21/2024, 05/0 08/2022, 12/24/2021, Additional history exists eGFR 04/21/2025 04/21/2024, 05/0 08/2022, 12/24/2021, Additional history exists Colon Cancer Screening-FIT Discontinued 01/03/2019 Procedures Procedure Name Priority Date/Time Associated Diagnosis Comments EGFR Routine 04/21/2024 11:25 AM CDT Type 2 diabetes mellitus with hyperglycemia, with long-term current use of insulin (HCC) LIPID PANEL Routine 04/21/2024 11:25 AM CDT Type 2 diabetes mellitus with hyperglycemia, with long-term current use of insulin (HCC) ALBUMIN CREATININE RATIO, URINE Routine 04/21/2024 11:25 AM CDT Type 2 diabetes mellitus with hyperglycemia, with long-term current use of insulin (HCC) POCT HEMOGLOBIN A1C Routine 04/21/2024 1 0:43 AM CDT Type 2 diabetes mellitus with hyperglycemia, with long-term current use of insulin (HCC) DIABETIC FOOT EXAM Routine 11/19/2022 OCCULT BLOOD, FECAL (FIT) STAT 01/03/2019 11:45 AM CDT DIABETIC EYE EXAM Routine 11/25/2017 from Last 3 Months or Most Recently Relevant to Health Maintenance Results * eGFR (04/21/2024 11:25 AM CDT) eGFR 69 >=60 mL/min/1. 73 m2 Comment: Interpretive Data Reference Interval Normal ?>/= 90 mL/min/1.73m2 Mildly decreased* ? 60 - 89 mL/min/1.73m2 Mildly to moderately decreased ?45 - 59 mL/min/1.73m2 Moderately to severely decreased ??30 - 44 mL/min/1.73m2 Severely decreased ?15 - 29 mL/min/1.73m2 Kidney Failure ?< 15 ??mL/min/1.73m2 *Relative to young adult level Estimated glomerular filtration rate is determined by the 2020 CKD-EPI equation recommended by the National Kidney Foundation (A Unifying Approach to GFR Estimation: Recommendations of the NKF-ASK Task Force on Reassessing the Inclusion of Race in Diagnosing Kidney Disease, JASN 2020). The CKD-EPI equation should not be used for patients with unstable renal function and has not been validated in children and those over 70. Current interpretive data was last reviewed 2021. Blood 04/21/2024 11:2 5 AM CDT 04/21/2024 3:05 PM CDT us Hilda De Souza NP LAB BLOOD ORDERABLES [facility] guo Result [facility] [id number] Department [place] [address] * Albumin Creatinine Ratio, Urine (04/21/2024 11:25 AM CDT) Pathologist [facility] Albumin Ur <12.0 mg/L Comment: Interpretive Data No reference range established. Current interpretive data was last revised 2018. Creatinine Ur 113.2 mg/dL [facility] Comment: Interpretive Data No reference range established. Current interpretive data was last revised 2018. Albumin Creatinine Ratio, Ur <11 1 - 29 mg/g [facility] Urine 04/21/2024 11:2 5 AM CDT 04/21/2024 2:59 PM CDT us Hilda De Souza INTERVENTIONAL NURSE LAB URINE ORDERABLES [facility] srai Result [facility] [address] [address] Department of Laboratories [place] [id number] * Lipid panel (04/21/2024 11:25 AM CDT) Cholesterol 112 30 - 199 mg/dL Comment: Interpretive Data Ages < or = 19 years ??Acceptable: ? <170 mg/dL ??Borderline high: ??170-199 mg/dL ??High: ? >or= 200 mg/dL Ages > or = 20 years ??Desirable: ?<200 mg/dL ??Borderline high: ??200-239 mg/dL ??High: ? >or= 240 mg/dL Literature References: 1. Expert Panel on Integrated Guidelines for Cardiovascular Health and Risk Reduction in Children and Adolescents. Pediatrics 2011;128:S213 2. NCEP Expert Panel. Circulation 2004;110:227 Current Interpretive Data was last revised on 2018. Triglycerides 114 <=149 mg/dL [facility] Comment: Interpretive Data Ages < or = 9 years ??Acceptable: ? <75 mg/dL ??Borderline high: ??75-99 mg/dL ??High: ? >or= 100 mg/dL Ages 10 to 20 years ??Acceptable: ? <90 mg/dL ??Borderline high: ??90-129 mg/dL ??High: ? >or= 130 mg/dL Ages > or = 20 years ??Desirable: ?<150 mg/dL ??Borderline high: ??150-199 mg/dL ??High: ? 200-499 mg/dL ?Very high: ?? >or= 499 mg/dL Literature References: 1. Expert Panel on Integrated Guidelines for Cardiovascular Health and Risk Reduction in Children and Adolescents. Pediatrics 2011;128:S213 2. NCEP Expert Panel. Circulation 2004;110:227 Current Interpretive Data was last revised on 2018. HDL 55 >=40 mg/dL [facility] Comment: Interpretive Data Ages < or = 19 years ??Acceptable: ? >45 mg/dL ??Borderline low: ?? 40-45 mg/dL ??Low: ? <40 mg/dL Ages > or = 20 years ??Desirable: ?>or= 60 mg/dL ??Low: ? <40 mg/dL Literature References: 1. Expert Panel on Integrated Guidelines for Cardiovascular Health and Risk Reduction in Children and Adolescents. Pediatrics 2011;128:S213 2. NCEP Expert Panel. Circulation 2004;110:227 Current Interpretive Data was last revised on 2018. LDL, calculated 37 <=129 mg/dL [facility] Comment: Interpretive Data Ages < or = 19 years ??Acceptable: ? <110 mg/dL ??Borderline high: ??110-129 mg/dL ??High: ?>or= 130 mg/dL Ages > or = 20 years ??Optimal: ? <100 mg/dL ??Near optimal: ?100-129 mg/dL ??Borderline high: ?? 130-159 mg/dL ??High: ?>160 mg/dL Calculated using the Jenaro LDL-C estimating equation. This equation was implemented on 2024. Prior to this date LDL-C was estimated using the Friedewald equation. Literature References: 1. Expert Panel on Integrated Guidelines for Cardiovascular Health and Risk Reduction in Children and Adolescents. Pediatrics 2011;128:S213 2. NCEP Expert Panel. Circulation 2004;110:227 3. Jenaro Tang et al. KRYSTAL Cardiol. 2020 December 08;5(5):540-548. doi: 10.1001/[email or web address] Current Interpretive Data was last revised on 2024. Non-HDL Cholesterol 57 mg/dL [facility] Comment: Interpretive Data Ages < or = 19 years ??Acceptable: ?<120 mg/dL ??Borderline high: ??120-144 mg/dL ??High: ?>145 mg/dL Ages > or = 20 years ??When triglycerides are >200 mg/dL, Non-HDL cholesterol is a secondary target of ? therapy with treatment goals that are 30 mg/dL greater than the LDL cholesterol target. ? Literature References: 1. Expert Panel on Integrated Guidelines for Cardiovascular Health and Risk Reduction in Children and Adolescents. Pediatrics 2011;128:S213 2. NCEP Expert Panel. Circulation 2004;110:227 Current Interpretive Data was last revised on 2018. Chol/HDL ratio 2 [facility] Blood 04/21/2024 11:2 5 AM CDT 04/21/2024 2:59 PM CDT Hilda De Souza NP LAB BLOOD ORDERABLES [facility] l Result [facility] [address] Department [place] [address] * (ABNORMAL) POCT hemoglobin A1c (04/21/2024 10:43 AM CDT) Hemoglobin A1C, POC 7.7 4.0 - 5.6 % Blood 04/21/2024 10:4 3 AM CDT Hilda De Souza NP POINT OF CARE TEST ORDERA BLES Final Result * Diabetic Foot Exam (11/19/2022) us Historical Provider HEALTH MAINTENANCE Final Result * Occult blood, fecal non neoplasm screening (01/03/2019 11:45 AM CDT) Occult blood, fecal Negative Negative [facility] Collection date 1, feces [id number] [facility]) Collection time 1, feces 1144 [facility]) Stool 01/03/2019 11:4 5 AM CDT 01/03/2019 11:49 AM CDT Narrative [facility] ([place]) - 01/03/2019 11:52 AM CDT us Jose F Apple MD LAB BODY FLUIDS AND STOOLS O RDERABLES Final Result [facility] ([place]) [address] [facility] Department [place] [address] * Diabetic Eye Exam (11/25/2017) Historical Provider HEALTH MAINTENANCE Edited Result - Final from Last 3 Months or Most Recently Relevant to Health Maintenance Insurance [facility] MEDICARE MEDICARE [facility] MEDICARE MEDICARE [facility] IDPA [employer] MEDICARE GOLD Advance Directives For more information, please contact: [phone] * Full Code (Latest Code Status on File) Date Activated Date Inactivated Comments 12/19/2020 2:28 PM 12/25/2020 8:05 PM Care Teams Microfiche Duplicator Relationship Specialty Start Date End Date Claudio Kohler MD [address] [place] [address] [address] [place] [address] PCP - General Gastroenterology 04/21/24 [place] [id number] [address] [address] Surgeon Cardiothoracic Surgery 12/25/20 [place] [address] [address] [address] Consulting Physician Cardiology 12/25/20
--- OUTSIDE RECORDS SUMMARY | 2024-09-07 01:00 | XMS_ITS | CONTINUITY OF CARE DOCUMENT ---
Author Name jaquelinealfred efraín Address Unknown Organization [facility] Address [address] [place] [address] Phone [phone] Care Team Providers Care Dross Skimmer Name Role Phone Aris Maxwell MD Unavailable [phone] TEJAL MONTAGUE MD Unavailable TEJAL MONTAGUE MD Unavailable [phone] PROBLEMS Condition Status Date Provider Notes DYSLIPIDEMIA active Claire Osmar SHORTNESS OF BREATH active Claire Trevizoeal CHEST PAIN active John Radford HYPERTENSION - echo ef 66%, mild MR, TR, 11/2021. active Boaz Davila THYROID NODULE, HX OF completed - Aris Maxwell MD CORONARY ARTERY DISEASE, FAMILY HX completed - Aris Maxwell MD Family History Coronary Hear t Disease male < 55: completed - Aris Maxwell MD Family History of Sudden Cardiac : completed - Aris Maxwell MD Diabetes mellitus active Aris Maxwell MD CVA active Aris Maxwell MD ARTHRITIS active Aris Maxwell MD Edema-BLE active Aris Maxwell MD ADRIEN active Aris Maxwell MD CAD s/p CABG x4 (ELI-->proxLAD and dLAD, SVG-->OM, radial-->RCA) 12/28 active Jeison Nacht Cardiology examination completed 6 - Aris Maxwell MD Leg pain, right, inner thigh completed 11/15/25 - Aris Maxwell MD PVD with claudication- b/l Below th eknee dz on POOJA 04/2024 active Aris Maxwell MD ENCOUNTERS Date Type Provider Location Encounter Diag nosis - In-person encounter Office Visit Aris Maxwell MD [facility] Cardiology examinationLeg pain, right, inner thighPVD with claudication- b/l Below th eknee dz on POOJA 04/2024 - In-person encounter Office Visit Aris Maxwell MD [facility] - In-person encounter Office Visit Aris Maxwell MD [facility] - In-person encounter Office Visit Aris Maxwell MD [facility] Office - In-person encounter Office Visit Aris Maxwell MD [facility] - In-person encounter Office Visit Aris Maxwell MD [facility] HYPERTENSION - echo ef 66%, mild MR, TR, 11/2021. - In-person encounter Office Visit Aris Maxwell MD [facility] - In-person encounter Office Visit Aris Maxwell MD [facility] CAD s/p CABG x4 (ELI-->proxLAD and dLAD, SVG-->OM, radial-->RCA) 12/28 - In-person encounter Office Visit Aris Maxwell MD [facility] - In-person encounter Office Visit Aj Sun MD [facility] - In-person encounter Office Visit Aris Maxwell MD [facility] - In-person encounter Office Visit Aris Maxwell MD [facility] - In-person encounter Office Visit Aris Maxwell MD [facility] - In-person encounter Office Visit Aris Maxwell MD [facility] CHEST PAIN - In-person encounter Office Visit Aris Maxwell MD [facility] - In-person encounter Office Visit Aris Maxwell MD [facility] Edema-BLEOSA - In-person encounter Office Visit Aris Maxwell MD [facility] - In-person encounter Office Visit Aris Maxwell MD [facility] ARTHRITIS - In-person encounter Office Visit Aris Maxwell MD [facility] - In-person encounter Office Visit Aris Maxwell MD [facility] - In-person encounter Office Visit Aris Maxwell MD [facility] - In-person encounter Office Visit Aris Maxwell MD [facility] CHEST PAIN - In-person encounter Office Visit Aris Maxwell MD [facility] THYROID NODULE, HX OF - In-person encounter Office Visit Aris Maxwell MD [facility] - In-person encounter Office Visit Aris Maxwell MD [facility] CHEST PAIN - In-person encounter Office Visit Aris Maxwell MD [facility] CORONARY ARTERY DISEASE, FAMILY HX - In-person encounter Office Visit Aris Maxwell MD [facility] CHEST PAINDiabetes mellitusCVA - In-person encounter Office Visit Aris Maxwell MD [facility] CHEST PAINFamily History Coronary Heart Disease male < 55:Family History of Sudden Cardiac : VITAL SIGNS Date Observation Value Provider Body Mass Index (Ratio) 33.41 kg/m2 Rickey Maxwell MD blood pressure, diastolic 77 mm[Hg] Mara kaye Haynes blood pressure, systolic 122 mm[Hg] Ashley welch Haynes oxygen saturation, oximetry 98 % Chacha Loma Mar pulse rate 71 /min Chacha Loma Mar weight E&M 207 [lb_av] Chacha Loma Mar respiratory rate E&M 14 /min Chacha Loma Mar height E&M 66 [in_i] Chacha Loma Mar blood pressure, cuff size regular Mara kaye Loma Mar Body Mass Index (Ratio) 33.60 kg/m2 Rickey Maxwell MD blood pressure, diastolic 80 mm[Hg] Rosa M nkLog blood pressure, systolic 132 mm[Hg] Brigida og blood pressure, cuff size regular Trey callahan [place] blood pressure, diastolic 80 mm[Hg] Trey smithha [place] blood pressure, systolic 132 mm[Hg] Tab [facility] [place] oxygen saturation, oximetry 98 % [facility] pulse rate 79 /min Krystyna [place] weight E&M 208.2 [lb_av] Krystyna [place] respiratory rate E&M 12 /min Krystyna [place] height E&M 66 [in_i] Krystyna Jonas Body Mass Index (Ratio) 33.25 kg/m2 Rickey Maxwell MD blood pressure, diastolic 87 mm[Hg] Maar Davey blood pressure, systolic 145 mm[Hg] Joanne Davey oxygen saturation, oximetry 98 % Yamila Davey pulse rate 86 /min Yamila Davey weight E&M 206 [lb_av] Yamila Davey blood pressure, cuff size large An juan maunel Davey height E&M 66 [in_i] Yamila Davey Body Mass Index (Ratio) 33.67 kg/m2 Rickey Maxwell MD blood pressure, diastolic 88 mm[Hg] Rosa M nkLogic blood pressure, systolic 149 mm[Hg] Brigida kLogmaggi blood pressure, diastolic 88 mm[Hg] [facility] rex [facility] blood pressure, systolic 149 mm[Hg] [facility] [place] Per oxygen saturation, oximetry 98 % Anastasiia Per pulse rate 100 /min Anastasiia Per respiratory rate E&M 16 /min Anastasiia D gypsy weight E&M 208.6 [lb_av] Anastasiia Per height E&M 66 [in_i] [facility] Body Mass Index (Ratio) 35.34 kg/m2 Rickey Maxwell MD blood pressure, cuff size large Ke rri Gruenenfelder blood pressure, diastolic 95 mm[Hg] Ke rri Gruenenfelder blood pressure, systolic 133 mm[Hg] Ker ri Gruenenfelder oxygen saturation, oximetry 98 % Mary Hanseluenenfelder respiratory rate E&M 16 /min Mary Susana vasquezenenfelder pulse rate 84 /min Mary Gruenenfe lder weight E&M 219 [lb_av] Mary Gruenenfe lder height E&M 66 [in_i] Mary Gruenenfe lder Body Mass Index (Ratio) 36.47 kg/m2 Sulema Jonas blood pressure, cuff size large Ka amauri Dion blood pressure, diastolic 84 mm[Hg] Ka amauri Dion blood pressure, systolic 136 mm[Hg] Delores rice Pixley pulse rate 70 /min Umu Dion oxygen saturation, oximetry 100 % Umu Pixley weight E&M 226 [lb_av] Umu Pixley height E&M 66 [in_i] Umu Dion Body Mass Index (Ratio) 36.47 kg/m2 Rickey Maxwell MD blood pressure, diastolic -1 mm[Hg] Li nkLogic blood pressure, systolic 146 mm[Hg] Brigida kLogic blood pressure, diastolic 86 mm[Hg] Sa ra Reese blood pressure, systolic 146 mm[Hg] Rik a Reese oxygen saturation, oximetry 98 % Viviane Reese respiratory rate E&M 17 /min Viviane Si ms pulse rate 80 /min Viviane Reese blood pressure, cuff size regular Sa ra Reese weight E&M 226 [lb_av] Viviane Reese height E&M 66 [in_i] Viviane Reese Body Mass Index (Ratio) 31.79 kg/m2 Rickey Maxwell MD blood pressure, resting Yes [facility] maria elena Beasleyford blood pressure, diastolic 74 mm[Hg] [facility] blood pressure, systolic 124 mm[Hg] [facility] oxygen saturation, oximetry 98 % [facility] respiratory rate E&M 18 /[facility] pulse rate 84 /min Lisa Craw mcconnell weight E&M 197 [lb_av] Agustoa Craw mcconnell height E&M 66 [in_i] Sherrennya Craw mcconnell Body Mass Index (Ratio) 33.89 kg/m2 Rickey Maxwell MD blood pressure, cuff size large Ke rri Jayda blood pressure, diastolic 102 mm[Hg] Ke rri Annynejostin blood pressure, systolic 172 mm[Hg] Jess Houstonelder oxygen saturation, oximetry 98 % Mary Houstonelder respiratory rate E&M 16 /min Mary lynchelder pulse rate 102 /min Mary Houstone lder weight E&M 210 [lb_av] Mary Mccormicknenfe lder height E&M 66 [in_i] Mary Mccormicknenfe er Body Mass Index (Ratio) 34.54 kg/m2 Cali Sun MD blood pressure, diastolic 96 mm[Hg] Er ica Tevin-Marvin blood pressure, systolic 130 mm[Hg] Lindsay ca Tevin-Marvin oxygen saturation, oximetry 97 % Mago Abarca-Marvin pulse rate 112 /min Mago Abarca- Marvin weight E&M 214 [lb_av] Mago Abarca- Marvin height E&M 66 [in_i] Mago Abarca- Marvin Body Mass Index (Ratio) 34.54 kg/m2 Rickey Maxwell MD blood pressure, cuff size regular Cy umberto Monroe blood pressure, diastolic 80 mm[Hg] Cy umberto Monroe blood pressure, systolic 130 mm[Hg] Charmaine flavio Monroe pulse rate 102 /min Cristine Black l oxygen saturation, oximetry 98 % Cristine Monroe respiratory rate E&M 18 /min Cristine Monroe weight E&M 214 [lb_av] Cristine Bonibel l height E&M 66 [in_i] Cristine Campbel l Body Mass Index (Ratio) 35.83 kg/m2 Rickey Maxwell MD oxygen saturation, oximetry 99 % Cheriestcecilia Rivera blood pressure, diastolic 82 mm[Hg] Ch astcecilia Rivera blood pressure, systolic 126 mm[Hg] Cherie stity Nicole respiratory rate E&M 16 /min Chastit y Nicole pulse rate 90 /min Chastity Nicole weight E&M 222 [lb_av] Chastity Nicole height E&M 66 [in_i] Chastity Nicole Body Mass Index (Ratio) 35.67 kg/m2 Rickey Maxwell MD blood pressure, cuff size regular Cy umberto Monroe blood pressure, diastolic 98 mm[Hg] Cy umberto Monroe blood pressure, systolic 152 mm[Hg] Charmaine flavio Monroe oxygen saturation, oximetry 97 % Cristine Monroe respiratory rate E&M 16 /min Cristine Monroe pulse rate 94 /min Cristine Campbel l weight E&M 221 [lb_av] Cristine Campbel l height E&M 66 [in_i] Cristine Campbel l Body Mass Index (Ratio) 35.18 kg/m2 Rickey Maxwell MD blood pressure, diastolic 70 mm[Hg] Ma elías O'Jude blood pressure, systolic 110 mm[Hg] Enedina bell O'Jude oxygen saturation, oximetry 98 % Genoveva O'Jude respiratory rate E&M 16 /min Genoveva O'Jude pulse rate 86 /min Genoveva O'Jude weight E&M 218 [lb_av] Genoveva O'Jude height E&M 66 [in_i] Genovvea O'Jude Body Mass Index (Ratio) 34.70 kg/m2 Rickey Maxwell MD blood pressure, diastolic 80 mm[Hg] Ki lljean-pierre Basurto blood pressure, systolic 110 mm[Hg] Kil darby Basurto oxygen saturation, oximetry 99 % Momo Basurto respiratory rate E&M 16 /min [place] Basurto pulse rate 95 /min Momo Basurto weight E&M 215 [lb_av] Momo Basurto height E&M 66 [in_i] Momo Basurto Body Mass Index (Ratio) 35.18 kg/m2 Rickey Maxwell MD blood pressure, diastolic 80 mm[Hg] [facility], systolic 126 mm[Hg] Amarilys pastor Gurley oxygen saturation, oximetry 98 % [place] Basurto respiratory rate E&M 16 /min Momo Basurto pulse rate 84 /min [facility]&M 218 [lb_av] [facility] height E&M 66 [in_i] [facility] Body Mass Index (Ratio) 35.18 kg/m2 Rickey Maxwell MD blood pressure, cuff size large Ke rri Gruenenfbrattleboro memorial hospitaler blood pressure, diastolic 84 mm[Hg] Ke rri Gruenenfstacyer blood pressure, systolic 146 mm[Hg] Jess Montelongo oxygen saturation, oximetry 97 % Mary Montelongo respiratory rate E&M 20 /min Mary vargas pulse rate 102 /min Mary Baca er weight E&M 218 [lb_av] Mary Houstone lder height E&M 66 [in_i] Mary Mccormickneelliot er Body Mass Index (Ratio) 35.18 kg/m2 Rickey Maxwell MD blood pressure, diastolic 80 mm[Hg] Da елена Sunshine blood pressure, systolic 122 mm[Hg] Dac ia Sunshine oxygen saturation, oximetry 97 % Beatriz Sunshine respiratory rate E&M 18 /min Beatriz V oss pulse rate 88 /min Beatriz Sunshine weight E&M 218 [lb_av] Beatriz Sunshine height E&M 66 [in_i] Beatriz [place] Body Mass Index (Ratio) 35.02 kg/m2 Rickey Maxwell MD blood pressure, cuff size regular Ke rri Celsobrattleboro memorial hospitaljoselyn blood pressure, diastolic 96 mm[Hg] Ke rri Marvelparkview healthjoselyn blood pressure, systolic 180 mm[Hg] Jess ri Celsobrattleboro memorial hospitaljoselyn oxygen saturation, oximetry 98 % Mary Jayda respiratory rate E&M 18 /min Mary Susana lynchbrattleboro memorial hospitaljoselyn pulse rate 95 /min Mary Keven er weight E&M 217 [lb_av] Mary Hammjennifer er height E&M 66 [in_i] Mary Baca er pulse rate #2 66 [facility] blood pressure, unger tolic, second observation 79 mm[Hg] [facility] syst olic, second observation 108 mm[Hg] [facility], oximetry 98 % [facility] pulse rate 66 /min [facility] blood pressure, diastolic 79 mm[Hg] Vi ctoria Tebid blood pressure, systolic 108 mm[Hg] Dhruv laureanoia Tebid pulse rate #2 62 [facility], unger tolic, second observation 72 mm[Hg] [facility], syst olic, second observation 139 mm[Hg] [facility], oximetry 98 % [facility] pulse [facility] 62 /min [facility], diastolic 72 mm[Hg] Vi ctoria Tebid blood pressure, systolic 139 mm[Hg] Dhruv lugo Tebid pulse rate #2 52 [facility] blood pressure, unger tolic, second observation 72 mm[Hg] [facility] blood pressure, syst olic, second observation 146 mm[Hg] [facility], oximetry 98 % [facility] pulse rate 52 /min [facility] blood pressure, diastolic 72 mm[Hg] Ginny ramey d blood pressure, systolic 146 mm[Hg] Dhruv lugo Tebid Body Mass Index (Ratio) 34.54 kg/m2 Rickey Maxwell MD blood pressure, cuff size large Ke miltoni Jayda blood pressure, diastolic 80 mm[Hg] Ke rri Jayda blood pressure, systolic 162 mm[Hg] Jess Montelongo oxygen saturation, oximetry 97 % Mary Montelongo respiratory rate E&M 16 /min Mary vargas pulse rate 96 /min Mary Baca [facility] weight E&M 214 [lb_av] Mary Baca [facility] height E&M 66 [in_i] Mary Baca [facility] Body Mass Index (Ratio) 34.38 kg/m2 Rickey Maxwell MD blood pressure, cuff size large Ke rri Jayda blood pressure, diastolic 82 mm[Hg] Ke rri Jayda blood pressure, systolic 122 mm[Hg] Jess Montelongo oxygen saturation, oximetry 97 % Mary Montelongo respiratory rate E&M 18 /min Mary G alicia pulse rate 88 /min Mary Keven calverter weight E&M 213 [lb_av] Mary Keven [facility] height E&M 66 [in_i] Mary Hammbertmeganelliot [facility] Body Mass Index (Ratio) 33.41 kg/m2 Rickey Maxwell MD blood pressure, cuff size regular Ke rri Jayda blood pressure, diastolic 101 mm[Hg] Ke rri Marveljostin blood pressure, systolic 152 mm[Hg] Jess odonnell Jayda oxygen saturation, oximetry 98 % Mary Jayda respiratory rate E&M 16 /min Mary Susana vargas pulse rate 104 /min Mary Keven [facility] weight E&M 207 [lb_av] Mary Keven [facility] height E&M 66 [in_i] Mary Hammjennifer [facility] blood pressure, diastolic 108 mm[Hg] Vt francis Moran blood pressure, systolic 158 mm[Hg] Ciarra taniya Moran pulse rate 114 /min Jennifer Moran oxygen saturation, oximetry 97 % Jennifer Moran respiratory rate E&M 16 /min Jennifer Moran Body Mass Index (Ratio) 32.28 kg/m2 [facility] weight E&M 200 [lb_av] Jennifer Moran blood pressure, diastolic 90 mm[Hg] Vt francis Moran blood pressure, systolic 138 mm[Hg] Ciarra taniya Moran pulse rate 82 /min Jennifer Moran oxygen saturation, oximetry 98 % Jennifer Moran respiratory rate E&M 16 /min Jennifer Moran Body Mass Index (Ratio) 31.31 kg/m2 [facility] weight E&M 194 [lb_av] Jennifer Moran blood pressure, diastolic 85 mm[Hg] Batsheva Jara blood pressure, systolic 125 mm[Hg] Enedina Jara pulse rate 92 /min Maciej roy oxygen saturation, oximetry 95 % Maciej Jara respiratory rate E&M 16 /min Harini Jara Body Mass Index (Ratio) 31.70 kg/m2 Tamera Jara weight E&M 196.4 [lb_av] Maciej gallegos blood pressure, diastolic 95 mm[Hg] Me francis Moran blood pressure, systolic 155 mm[Hg] Ciarra taniya Moran pulse rate 93 /min Jennifer Moran oxygen saturation, oximetry 98 % Jennifer Moran respiratory rate E&M 15 /min Jennifer Moran Body Mass Index (Ratio) 32.44 kg/m2 [facility] weight E&M 201 [lb_av] Jennifer Moran blood pressure, diastolic 95 mm[Hg] Vt francis Moran blood pressure, systolic 143 mm[Hg] Ciarra taniya Moran pulse rate 106 /min Jennifer Moran Body Mass Index (Ratio) 32.28 kg/m2 [facility] oxygen saturation, oximetry 97 % Jennifer Moran respiratory rate E&M 14 /min Jennifer Moran weight E&M 200 [lb_av] Jennifer Moran blood pressure, diastolic 99 mm[Hg] Vt francis Moran blood pressure, systolic 141 mm[Hg] Ciarra taniya Moran pulse rate 110 /min Jennifer Moran Body Mass Index (Ratio) 32.44 kg/m2 [facility] oxygen saturation, oximetry 98 % Jennifer Moran respiratory rate E&M 15 /min Jennifer Moran weight E&M 201 [lb_av] Jennifer Moran height E&M 66 [in_i] Jennifer Moran ALLERGIES Allergy Name Onset Date Reaction Criticality Status AMLODIPINE swelling in legs High Criticality ac tive DOXEPIN High Criticality active LISINOPRIL tongue swelling tongue swelling Low Criticality active RANEXA dizziness dizziness Low Criticality active RESULTS Date Observation Value Provider Reference Range Interpretation Location 4 prothrombin time (patient) 10.9 s [facility] 9.1-12.0 4 international normalized ratio (INR) 1.0 [facility] 0.8-1.2 4 lipoprotein, beta, serum, point, quantitative, calculated 109 mg/dL [facility] 0-99 High 4 very low density lipoproteins 40 mg/dL [facility] 5-40 4 HDL cholesterol, serum 46 mg/dL [facility] >39 4 triglyceride, serum, random 199 mg/dL [facility] 0-149 High 4 cholesterol, serum 195 mg/dL [facility] [phone]/10/0 4 calcium, serum 9.7 mg/dL [facility] 8.7-10.2 4 carbon dioxide, venous blood 22 mmol/L [facility] 20-29 4 chloride, serum 100 mmol/L [facility] 96-106 4 potassium, serum 4.3 mmol/L [facility] 3.5-5.2 4 sodium, serum 139 mmol/L [facility] [phone]/10/0 4 urea nitrogen/creatini ne ratio, serum 21 [facility] 9-23 4 eGFR if 115 mL/min/{1 .73_m2} [facility] >59 4 eGFR if not 100 mL/min/{1 .73_m2} [facility] >59 4 creatinine, serum 0.62 mg/dL [facility] 0.57-1.00 4 urea nitrogen, blood 13 mg/dL [facility] 6-24 4 blood glucose, random 193 mg/dL [facility] 65-99 High 4 basophil count, absolute 0.0 x10E3/uL [facility] 0.0-0.2 4 Eosinophil Absolute Count 0.3 X10E3/UL [facility] 0.0-0.4 4 monocyte count, blood, automated 0.7 X10E3/UL [facility] 0.1-0.9 4 lymphocyte count, blood, automated 2.5 X10E3/UL [facility] 0.7-3.1 4 Absolute Neutrophils 5.1 X10E3/UL [facility] 1.4-7.0 4 basophils as percent of blood leukocytes 0 % [facility] Not Estab. 4 eosinophils as percent of blood leukocytes 3 % [facility] Not Estab. 4 monocytes as percent of blood leukocytes 8 % [facility] Not Estab. 4 lymphocytes as percent of blood leukocytes 29 % [facility] Not Estab. 4 neutrophils as percent of blood leukocytes 60 % [facility] Not Estab. 4 platelet count 321 X10E3/UL [facility] [phone]/10/0 4 red blood cell distribution width 14.4 % [facility] 12.3-15.4 4 mean corpuscular hemoglobin concentration, RBC 33.0 G/DL [facility] 31.5-35.7 4 mean corpuscular hemoglobin, RBC 26.2 pg [facility] 26.6-33.0 Low 4 mean corpuscular volume, RBC 79 fL [facility] 79-97 4 hematocrit, blood 35.1 % [facility] 34.0-46.6 4 hemoglobin, blood 11.6 g/dL [facility] 11.1-15.9 4 erythrocyte (RBC) count 4.43 X10E6/UL [facility] 3.77-5.28 4 leukocyte count, blood 8.6 X10E3/UL [facility] 3.4-10.8 5 LDL cholesterol, serum 127 mg/dL [facility] [place] [facility] [place] HISTORY OF MEDICATION USE Medication Status Instructions Dates Provider Indications Com ments isosorbide mononitrate 30 mg tablet extended release 24 hr active TAKE 1 TABLET BY MOUTH EVERY DAY Cristy Jiménez cilostazol 50 mg tablet active TAKE 1 TABLET BY MOUTH TWICE A DAY Aris Maxwell MD clopidogrel 75 mg tablet active TAKE 1 TABLET DAILY Aris Maxwell MD isosorbide mononitrate 30 mg tablet extended release 24 hr completed Take 1 tablet by mouth once a day - Cristy Jiménez isosorbide mononitrate 120 mg tablet extended release 24 hr completed - Boaz Davila clonazepam 0.5 mg tablet active TAKE 1 TABLET DAILY WITH A MEAL Aris Maxwell MD metoprolol tartrate 25 mg tablet completed Take 1 tablet by mouth twice a day - Aris Maxwell MD gabapentin 100 mg capsule active 1 capsule twice a day as needed Jeison Arteaga TRAZODONE HCL 50 MG TABS active 1 tablet every night Jeison Arteaga Paxil 10 mg tablet completed 1 tablet once a day - Jeison Arteaga amitriptyline 25 mg tablet completed 1 tablet once a day - Jeison Arteaga spironolactone 25 mg tablet completed 1 tablet once a day - Jeison Arteaga metoprolol tartrate 25 mg tablet completed 0.5 tablet twice a day - Jeison Arteaga atorvastatin 80 mg tablet active Take 1 tablet by mouth once a day Anirudh Lewis ISOSORB MONO 120 MG TAB AVET completed Take one tablet daily - Jeison Arteaga GABAPENTIN 300 MG ORAL CAPSULE completed take 1 tab twice a day - Jeison Arteaga BRILINTA 90 MG ORAL TABLET completed 1 tab twice daily - Jeison Arteaga LIPITOR 80 MG ORAL TABLET completed 1 tab daily - Aris Maxwell MD ACID PROJECT DEVELOPER 150 MG ORAL TABLET completed 2 a day - Cristine Monroe nitroglycerin 0.4 mg tablet, sublingual active 1 under tongue as needed rAis Maxwell MD DOXEPIN HCL 10 MG ORAL CAPSULE completed take one pill at bedtime - Genoveva Galvez Symbicort 160-4.5 mcg/actuation HFA aerosol inhaler active as directed Mary Montelongo Lasix 20 mg tablet completed Take 1 tablet by mouth once a day as needed - Aris Maxwell MD LOSARTAN POTASSIUM 50 MG ORAL TABLET completed Take one tablet daily - Mary Montelongo HUMULIN R SOLUTION active as directed Mary Montelongo TOUJEO SOLOSTAR SOLUTION PEN-INJECTOR active 150 unit every morning Mary Montelongo ISOSORBIDE MONONITRATE ER 60 MG ORAL TABLET EXTENDED RELEASE 24 HOUR completed one tab. daily - Jeison Arteaga pantoprazole 20 mg tablet,delayed release (DR/EC) active 1 twice a day Mary Montelongo HYDRALAZINE HCL 50 MG ORAL TABLET completed po bid - Mary Montelongo LOVASTATIN 40 MG ORAL TABLET completed ONE TAB. DAILY - Genoveva Galvez COZAAR 100 MG ORAL TABLET completed ONE TAB. DAILY - Mary Montelongo AMBIEN 5 MG ORAL TABLET completed ONE TAB. AT BEDTIME - Mary Montelongo COZAAR 50 MG ORAL TABLET completed ONE TAB. DAILY - Aris Maxwell MD TOPROL XL 100 MG ORAL TABLET EXTENDED RELEASE 24 HOUR completed ONE TAB DAILY - Jeison Arteaga AMARYL 4 MG ORAL TABLET completed po daily - Mary Montelongo ASPIRIN 81 MG ORAL TABLET active 1 tablet once a day Airs Maxwell MD RANEXA 500 MG ORAL TABLET EXTENDED RELEASE 12 HOUR completed ONE TAB. TWICE DAILY for chronic angina - Jennifer Moran HYDROCODONE-ACETAM INOPHEN 5-325 MG ORAL TABLET completed 4 times daily as needed - Jeison Arteaga SYMBICORT 160-4.5 MCG/ACT INHALATION AEROSOL completed 1 puff twice daily - Mary Montelongo HUMULIN R U-500 (CONCENTRATED) 500 UNIT/ML SUBCUTANEOUS SOLUTION completed as directed - Aris Maxwell MD NASAL SPRAY SOLUTION active as needed Jennifer Moran LEVEMIR FLEXTOUCH SOLUTION PEN-INJECTOR completed 40 units in the am and 40 units in the pm - Aris Maxwell MD LYRICA 75 MG ORAL CAPSULE completed twice daily - Mary Montelongo CELEXA 20 MG ORAL TABLET completed once daily - Mary Montelongo NORVASC 10 MG ORAL TABLET completed ONE TAB. DAILY - Jeison Arteaga levothyroxine 100 mcg tablet active once a day Boaz Davila ALPRAZOLAM 0.25 MG ORAL TABLET completed as needed - Mary Montelongo METHOCARBAMOL 750 MG ORAL TABLET completed every 6 hours as needed - Mary Montelongo CYCLOBENZAPRINE HCL 10 MG ORAL TABLET completed three times daily - Jeison Arteaga FAMOTIDINE 20 MG ORAL TABLET completed twice daily - Mary Montelongo SOCIAL HISTORY Date Observation Value Provider smoking status Never smoker Boaz Davila smoking status Never smoker Boaz Davila social history E&M S moking History: Steffanie russell has never smoked. Boaz Davila seatbelt usage 100 % Yamila Davey smoking status Never smoker Yamilachely Davey social history reviewed E&M revi ewed - no changes required Aris Maxwell MD seatbelt usage 100 % Anastasiia Albarado smoking status Never smoker Anastasiia Albarado social history reviewed E&M revi ewed - no changes required Boaz Davila seatbelt usage 100 % Mary Annychidi valencia smoking status Never smoker Mary Mccormickchidi annie social history reviewed E&M revi ewed - no changes required Aris Maxwell MD social history E&M S moking History: Steffanie russell has never smoked. Boaz Davila seatbelt usage 100 % Umu Ashley smoking status Never smoker Umu Dion social history reviewed E&M revi ewed - no changes required Boaz Davila social history reviewed E&M revi ewed - no changes required Aris Maxwell MD social history E&M S moking History: Steffanie russell has never smoked. Jeison Arteaga social history reviewed E&M revi ewed - no changes required Jeison Arteaga seatbelt usage 100 % Lisa acosta smoking status Never smoker Lisa acosta social history E&M S moking History: Steffanie russell has never smoked. Rodney Tom social history reviewed E&M revi ewed - no changes required Rodney Tom seatbelt usage 100 % Mary valencia smoking status Never smoker Mary Mccormickchidi annie social history E&M S moking History: Steffanie russell has never smoked. Aj Sun MD seatbelt usage 100 % Mago Nidhi Britt smoking status Never smoker Mago Brownsaurav Britt social history reviewed E&M revi ewed - no changes required Mago Cristobal social history E&M S moking History: Steffanie russell has never smoked. Aris Maxwell MD social history reviewed E&M revi ewed - no changes required Aris Maxwell MD seatbelt usage 100 % Cristine breaux smoking status Never smoker Cristine breaux social history E&M S moking History: Steffanie russell has never smoked. Aris Maxwell MD social history reviewed E&M revi ewed - no changes required Aris Maxwell MD seatbelt usage 100 % Julissa Borrerou e smoking status Never smoker Julissa Borrerou e social history reviewed E&M revi ewed - no changes required Aris Maxwell MD social history E&M S moking History: Steffanie russell has never smoked. Aris Maxwell MD seatbelt usage 100 % Cristine breaux smoking status Never smoker Cristine breaux social history reviewed E&M revi ewed - no changes required Aris Maxwell MD social history E&M S moking History: Steffanie russell has never smoked. Aris Maxwell MD seatbelt usage 100 % Genoveva Galvez smoking status Never smoker Genoveva Galvez social history E&M S moking History: Steffanie russell has never smoked. Aris Maxwell MD social history reviewed E&M revi ewed - no changes required Aris Maxwell MD seatbelt usage 100 % Momo Partidaa judith smoking status Never smoker Kenesaw Ingra m seatbelt usage 100 % Kenesaw Ingra m smoking status Never smoker Momo Ingra m social history reviewed E&M revi ewed - no changes required Aris Maxwell MD seatbelt usage 100 % Mary valencia smoking status Never smoker Mary valencia seatbelt usage 100 % Meme Alexavarghese kathleen smoking status Never smoker Meme Learyvarghese kathleen seatbelt usage 100 % Meme Alexan hever smoking status Never smoker Memestefani Learyn hever social history reviewed E&M revi ewed - no changes required Aris Maxwell MD smoking status Never smoker Beatriz Gonsalez number of grandchildren Aris Maxwell MD T cristian Maxwell MD social history reviewed E&M revi ewed - no changes required Aris Maxwell MD social history E&M S moking History: P atonur has never smoked. Aris Mxawell MD smoking status Never smoker Mary valencia social history reviewed E&M revi ewed - no changes required Aris Maxwell MD smoking status Never smoker Mary valencia social history reviewed E&M revi ewed - no changes required Aris Maxwell MD smoking status Never smoker Mary valencia social history reviewed E&M revi ewed - no changes required Aris Maxwell MD smoking status Never smoker Mary valencia social history reviewed E&M revi ewed - no changes required Jennifer Moran smoking status Never smoker Jennifer kwong social history reviewed E&M revi ewed - no changes required Aris Maxwell MD smoking status Never smoker Jennifer kwong social history reviewed E&M revi ewed - no changes required Aris Maxwell MD smoking status Never smoker Maciej Gracia social history reviewed E&M revi ewed - no changes required Aris Maxwell MD smoking status Never smoker Jennifer Flower kwong social history reviewed E&M revi ewed - no changes required Aris Maxwell MD smoking status Never smoker Jennifer Pritchardmara kwong social history reviewed E&M revi ewed - no changes required Aris Maxwell MD smoking status Never smoker Jennifer Crenshaw varghese FUNCTIONAL STATUS Date Observation Value Provider HRA, CV Assess/Plan, Angina (inactive) Management Plan continue current therapy Boaz Ahmedzai HRA, CV Assess/Plan, Angina (inactive) Management Plan continue current therapy Boaz Ahmedzai HRA, CV Assess/Plan, Angina (inactive) Management Plan continue current therapy Boaz Ahmedzai HRA, CV Assess/Plan, Angina (inactive) Management Plan continue current therapy Boaz Ahmedzai HRA, CV Assess/Plan, Angina (inactive) Management Plan continue current therapy Boaz Ahmedzai HRA, CV Assess/Plan, Angina (inactive) Management Plan continue current therapy Jeison Nacht HRA, CV Assess/Plan, Angina (inactive) Management Plan continue current therapy Rodney C Ionia HRA, CV Assess/Plan, Angina (inactive) Management Plan continue current therapy Aris Maxwell MD MENTAL STATUS Date Observation Value Provider energy level no Sari Tebid energy level no Sari Tebid energy level no Sari Tebid FAMILY HISTORY Family Member Condition Father TN male <55 Full Sister Family History of Co ronary Artery Disease: Full Brother Family History of Jaffe dden Cardiac : Full Brother Family History Coron nadine Heart Disease male < 55: Father Family History of Co ronary Artery Disease: Mother Family History of Co ngestive Heart Failure: INSURANCE PROVIDERS Payer name Policy type / Coverage type [place] [employer] party ID [employer] MEDICARE GOLD ADVANTAGE O Medicare [id number] [facility] Medicaid 1 [id number] ADVANCE DIRECTIVES Name Date DISCUSSED - NO DECISION MADE TREATMENT PLAN Date Name Performer [id number],W, Boaz Ahmedza i [id number],S, Boaz Ahmedza i [id number],S, Boaz Ahmedza i [id number],S, Boaz Ahmedza i [id number],S, Boaz Ahmedza i [id number],S, Boaz Ahmedza i [id number],S, Boaz Ahmedza i [id number],S, Boaz Ahmedza i [id number],S, Boaz Ahmedza i [id number],S, Boaz Ahmedza i [id number],S, Boaz Ahmedza i [id number],S, Boaz Ahmedza i [id number],S, Boaz Ahmedza i [id number],S, Boaz Ahmedza i [id number],S, Boaz Ahmedza i [id number],S, Boaz Ahmedza i [id number],S, Boaz Ahmedza i [id number],S, Boaz Ahmedza i [id number],S, Boaz Ahmedza i [id number],S, Boaz Ahmedza i [id number],S, Boaz Ahmedza i [id number],S, Boaz Ahmedza i [id number],S, Boaz Ahmedza i [id number],S, Boaz Ahmedza i [id number],S, Boaz Ahmedza i [id number],S, Boaz Ahmedza i [id number],S, Boaz Ahmedza i [id number],S, Boaz Ahmedza i [id number],S, Boaz Ahmedza i [id number],S, Boaz Ahmedza i [id number],S, Boaz Ahmedza i [id number],S, Boaz Ahmedza i [id number],S, Boaz medza i [id number],B, Boaz Ahmedza i [id number],S, Boaz Ahmedza i [id number],S, Boaz Ahmedza i [id number],S, Boaz Ahmedza i [id number],W, Aris Maxwell MD [id number],W, Aris Maxwell MD [id number],S, Aris Maxwell MD [id number],S, Aris Maxwell MD [id number],S, Aris Maxwell MD Cardiology: H er updated medication list for this problem includes: Atorvastatin 80 Mg Tablet (Atorvastatin) ..... Take 1 tablet by mouth once a day Aris Maxwell MD Cardiology Aris Maxwell MD Cardiology: H er updated medication list for this problem includes: Cilostazol 50 Mg Tablet (Cilostazol) ..... Take 1 tablet by mouth twice a day Clopidogrel 75 Mg Tablet (Clopidogrel) ..... Take 1 tablet daily Aris Maxwell MD Cardiology Aris Maxwell MD Cardiology:This visi t has been a part of the consistent, comprehensive, and ongoing management of the chronic medical condition(s) listed above for the patient. Aris Maxwell MD Cardiology: O rders: S tress Cardiac PET-CT (78206) m yocardial blood flow (PET) (39704) C omplete Echo (17266) [facility] Cardiology: O rders: A rterial Duplex Bi-Lower EX (CPT-67240) [facility] Cardiology: O rders: S tress Cardiac PET-CT (42454) m yocardial blood flow (PET) (76873) Her updated medication list for this problem includes: Isosorbide Mononitrate 30 Mg Tablet Extended Release 24 Hr (Isosorbide mononitrate) ..... Take 1 tablet by mouth once a day Nitroglycerin 0.4 Mg Tablet, Sublingual (Nitroglycerin) ..... 1 under tongue as needed [facility]: B P today: 132/80 P rior BP: 145/87 (11/10/2022) Labs Reviewed: C reat: 0.62 (05/13/2019) C hol: 195 (05/13/2019) HDL: 46 (05/13/2019) LDL: 109 (05/13/2019) T (05/13/2019) [facility]: O rders: S tress Cardiac PET-CT (70488) m yocardial blood flow (PET) (77794) [facility] Cardiology: O rders: V enous Doppler Bilateral LE - Reflux (CPT-74566) [facility] Boaz Ahmedzai Cardiology Boaz Ahmedzai Cardiology Boaz Ahmedzai Cardiology Boaz Ahmedzai Cardiology Boaz Ahmedzai Cardiology Boaz Ahmedzai Telehealth Boaz Ahmedzai Telehealth Boaz Ahmedzai Telehealth Boaz Ahmedzai Telehealth Boaz Ahmedzai Telehealth Boaz Ahmedzai Telehealth Boaz Ahmedzai Telehealth Boaz Ahmedzai Telehealth Boaz Ahmedzai Telehealth Boaz Ahmedzai Telehealth Boaz Ahmedzai Telehealth Boaz Ahmedzai Cardiology Boaz Ahmedzai Cardiology Boaz Ahmedzai Cardiology Boaz Ahmedzai Cardiology Boaz Ahmedzai Cardiology Boaz Ahmedzai Cardiology Boaz Ahmedzai Cardiology Boaz Ahmedzai Cardiology Boaz Ahmedzai Cardiology Boaz Ahmedzai Cardiology Boaz Ahmedzai Cardiology Boaz Ahmedzai Cardiology Boaz Ahmedzai Cardiology Boaz Ahmedzai Cardiology Boaz Ahmedzai Cardiology Boaz Ahmedzai Cardiology Boaz Ahmedzai Cardiology Boaz Ahmedzai Cardiology Boaz Ahmedzai Cardiology Boaz Ahmedzai Cardiology Aris Maxwell MD Cardiology Aris Maxwell MD Cardiology Aris Maxwell MD Cardiology Aris Maxwell MD Cardiology Aris Maxwell MD Cardiology Jeison Arteaga Cardiology Jeison Thorpet Cardiology Jeison Thorpet Cardiology Jeison Arteaga Cardiology Je[facility] Thorpet Cardiology Follow up Rodney C Beat ty Cardiology Follow up Rodney C Beat ty Cardiology Follow up : B P today: 172/102 P rior BP: 130/96 (08/19/2019) Labs Reviewed: C reat: 0.62 (05/13/2019) C hol: 195 (05/13/2019) HDL: 46 (05/13/2019) Rodney C Negro Cardiology Follow up Rodney C Beat ty Cardiology Follow up Rodney C Beat ty Cardiology:Will check a stress r egadenosen. Aj Sun MD Cardiology:Per PCP Aj Sun MD Cardiology Aj Sun MD Cardiology: B P today: 130/96 P rior BP: 130/80 (07/26/2019) Labs Reviewed: C reat: 0.62 (05/13/2019) C hol: 195 (05/13/2019) HDL: 46 (05/13/2019) Aj Sun MD Cardiology:Will repe at the standing venous doppler bilaterally. Also will check an POOJA bilaterally. In the meantime, recommend she begin wearing compression stockings. Aj Sun MD Cardiology follow up Aris redd MD Cardiology follow up Aris redd MD Cardiology follow up Aris redd MD Cardiology follow up Aris redd MD Cardiology follow up Aris redd MD Cardiology Aris Maxwell MD Cardiology Aris Maxwell MD Cardiology Aris Maxwell MD Cardiology Aris Maxwell MD Cardiology Aris Maxwell MD Cardiology follow up Toniya Tomasz redd MD Cardiology follow up Toniya Tomasz redd MD Cardiology follow up Toniya Tomasz redd MD Cardiology follow up Toniya Tomasz redd MD Cardiology follow up Toniya Tomasz redd MD Cardiology Tonbrennen Maxwell MD Cardiology Tonbrennen Maxwell MD Cardiology Tonbrennen Maxwell MD Cardiology Tonbrennen Maxwell MD Cardiology Tonbrennen Maxwell MD Cardiology Tonbrennen Maxwell MD Cardiology Tonbrennen Maxwell MD Cardiology Tonbrennen Maxwell MD Cardiology Tonbrennen Maxwell MD Cardiology Tonbrennen Maxwell MD Cardiology Tonbrennen Maxwell MD Cardiology Tonbrennen Maxwell MD Cardiology Tonbrennen Maxwell MD Cardiology Tonbrennen Maxwell MD Cardiology Tonbrennen Maxwell MD Cardiology Tonbrennen Maxwell MD Cardiology Follow up Toni[facility] [place] [facility] Follow up Toniya Tomasz redd MD Cardiology Follow up Toniya Tomasz redd MD Cardiology Follow up Toniya Tomasz redd MD Cardiology Follow up Toniya Tomasz redd MD Cardiology follow up [facility] [place] [facility] follow up [facility] [place] [facility] follow up [facility] [place] [facility] follow up [facility] [place] [facility] follow up [facility] [place] [facility] follow up [facility] [place] [facility] Follow up [facility] [place] [facility] Follow up [facility] [place] [facility] Follow up [facility] [place] [facility] Follow up [facility] [place] [facility] Follow up [facility] [place] [facility] Cardiology Follow up [facility] [place] [facility] Card[facility] Follow up [facility] [place] [facility] Cardiology Follow up Aris redd MD Cardiology Follow up Aris redd MD Cardiology Follow up Aris redd MD Cardiology Follow up Aris redd MD Cardiology Follow up :will increase ntg t ry ECP Aris Maxwell MD Cardiology Hospital Follow up To oscar Maxwell MD Cardiology Hospital Follow up To oscar Maxwell MD Cardiology Hospital Follow up To oscar Maxwell MD Cardiology Hospital Follow up To oscar Maxwell MD Cardiology Aris Maxwell MD Cardiology Aris Maxwell MD Cardiology Aris Maxwell MD Cardiology Aris Maxwell MD Cardiology Aris Maxwell MD Cardiology Aris Maxwell MD Cardiology Aris Maxwell MD Cardiology Aris Maxwell MD Cardiology Aris Maxwell MD Cardiology Aris Maxwell MD Cardiology Aris Maxwell MD Cardiology Aris Maxwell MD Cardiology Aris Maxwell MD Cardiology:unable to tolerate ranexa due to dizziness , bp still high will add bozena Maxwell MD Cardiology Aris Maxwell MD Cardiology:follows with endocrin e Aris Maxwell MD Cardiology Aris Maxwell MD Cardiology:carotid 04/24 , mild p laque Aris Maxwell MD follow up[: H er updated medication list for this problem includes: Aspirin 81 Mg Tabs (Aspirin) ..... One tab. daily Norvasc 10 Mg Tabs (Amlodipine besylate) ..... One tab. daily BP today: 141/99 Aris Maxwell MD Date Name Venous Doppler Bilat eral LE - Reflux Arterial Duplex Bi-L ower EX Complete Echo myocardial blood feroz w (PET) Stress Cardiac PET-C T Stress Regadenoson Carotid Duplex Bilat eral Stress Regadenoson CXR- PA/Lat Stress Regadenoson Complete Echo Cardiac Cath - Left - CNE PROTHROMBIN TIME WIT H INR LIPID PANEL CBC (INCLUDES DIFF/P LT) BASIC METABOLIC PANE L W/EGFR Cardiac Cath - L/R - CNE Stress Regadenoson Venous Doppler Bilat eral LE - Reflux Arterial Duplex Bi-L ower EX Venous Doppler Unila teral LLE Arterial Duplex LLE PROTHROMBIN TIME WIT H INR CBC (INCLUDES DIFF/P LT) LIPID PANEL BASIC METABOLIC PANE L W/EGFR CT Head without cont rast Cardiac Cath - Left - GC Cardiac Cath - L/R - GC Venous Doppler Bilat eral LE - Reflux Stress Regadenoson Complete Echo HISTORY OF PROCEDURES Procedure Date Procedure Name Provider Procedure Notes S tatus Complex e/m visit add on Aris Maxwell MD completed Complex e/m visit add on Aris Maxwell MD [04/06/2024 - [email or web address]] APPROVED [ 04/06/2024 - tracyvandoren] completed EKG Aris Maxwell MD [04/06/2024 - patrickjohnson] APPROVED [ 04/06/2024 - tracyvandoren] completed EKG Aris Maxwell MD completed EKG Aris Maxwell MD completed EKG Aris Maxwlel MD completed EKG Aris Maxwell MD completed EKG Aj Sun MD completed EKG Aris Maxwell MD completed EKG Aris Maxwell MD completed EKG Aris Maxwell MD completed EKG Aris Maxwell MD completed SNOMED-CT: 548807332039227 Current Medications Documented Aris Maxwell MD completed SNOMED-CT: 84241256 Physical Exam, Performed: Pulse Exam of Foot Aris Maxwell MD completed EKG Aris Maxwell MD completed SNOMED-CT: 752191886049162 Current Medications Documented Aris Maxwell MD completed SNOMED-CT: 94500189 Physical Exam, Performed: Pulse Exam of Foot Aris Maxwell MD completed EKG Aris Maxwell MD completed SNOMED-CT: 973102897990606 Current Medications Documented Aris Maxwell MD completed SNOMED-CT: 46082029 Physical Exam, Performed: Pulse Exam of Foot Aris Maxwell MD completed SNOMED-CT: 691676196644215 Current Medications Documented Aris Maxwell MD completed Stress EKG Aris Maxwell MD completed Regadenoson, 4 units Aris Maxwell MD completed Cardiolite, 2 units Aris Maxwell MD completed SPECT Images Aris Maxwell MD complet ed SNOMED-CT: 56966249 Physical Exam, Performed: Pulse Exam of Foot Aris Maxwell MD completed EKG Aris Maxwell MD completed SNOMED-CT: 509479343385246 Current Medications Documented Aris Maxwell MD completed SNOMED-CT: 97297219 Physical Exam, Performed: Pulse Exam of Foot Aris Maxwell MD completed EKG Aris Maxwell MD completed SNOMED-CT: 089391894542958 Current Medications Documented Aris Maxwell MD completed SNOMED-CT: 01586005 Physical Exam, Performed: Pulse Exam of Foot Aris Maxwell MD completed SNOMED-CT: 285848954896097 Current Medications Documented Aris Maxwell MD completed [place] Aris Maxwell MD completed EKSusana Maxwell MD completed
--- OUTSIDE RECORDS SUMMARY | 2024-09-07 01:00 | XMS_ITS | Referral Summary ---
Author Organization [facility] Address [address] [place] [address] Care Team Providers Care Clinical Trial Educator Name Role Phone Berna Carson MD Primary Care Provider [phone] Source Comments [facility],non-owned Affiliates and Associated Physician Practices is amultiple site organization consisting of ambulatory clinics and hospital sitesin [place], [place], [place] and [place]. This disclosure is being madepursuant to the Care Everywhere program and may not contain all information available regarding this patient. 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
--- OUTSIDE RECORDS SUMMARY | 2024-09-07 01:00 | XMS_ITS ---
Author Organization [facility] Address [address] [facility] [address] [facility] [address] [place] [address] Care Team Providers Care Haunted History Tour Guide Name Role Phone Maxx Maxwell Unavailable [phone] SOCIAL HISTORY Sex Assigned At : Social History Observation Description Sex Assigned At Female PROBLEMS Problem Type ICD Code Onset Dates Problem Status W/U Status Risk SNOMED Code Notes Problem Chronic kidney disease, stage 3b (N18.32) Active confirmed Chronic kidney disease stage 3B (disorder) (308903401) Problem Type 2 diabetes mellitus without complications (E11.9) Active confirmed Type II diabetes mellitus without complication (827001674) Problem Essential (primary) hypertension (I10) Active confirmed Essential hypertension (26555173) Problem Chronic obstructive pulmonary disease, unspecified (J44.9) Active confirmed Chronic obstructive pulmonary disease (64044972) Encounters Encounter Location Date Provider Diagnosis [facility] [place] [facility] [address] [facility] [address] [place] [address] 07/01/2024 Maxx Maxwell Chronic kidney disease, stage 3b N18.32 ; Type 2 diabetes mellitus without complications E11.9 ; Essential (primary) hypertension I10 and Chronic obstructive pulmonary disease, unspecified J44.9 ASSESSMENTS Encounter Date Diagnosis Assessment Notes Treatment Notes Treatment Clinical Notes Section Notes 07/01/2024 Chronic kidney disease, stage 3b (ICD-10 - N18.32) 07/01/2024 Type 2 diabetes mellitus without complications (ICD-10 - E11.9) 07/01/2024 Essential (primary) hypertension (ICD-10 - I10) 07/01/2024 Chronic obstructive pulmonary disease, unspecified (ICD-10 - J44.9) PLAN OF TREATMENT No Information Progress Notes * SUAD VELEZ:1960 (64 yo F)Acc No.[id number]:07/01/2024 Progress Notes Patient:??JENNIE VELEZ Provider:??MD WILLIAM, F.Renay.Kieran.P, F.A.S .N. :1960?Age:64 Y?Sex:Fe male Date:07/01/2024 Address:[address] [place] [address] Subjective: * Chief Complaints: * ? * Medical History:?? Objective: Assessment: * Assessment: 1.??Chronic kidney disease, stage 3b - N18.32 (Primary)??2.??Type 2 diabetes mellitus without complications - E11.9??3.??Essential (primary) hypertension - I10??4.??Chronic obstructive pulmonary disease, unspecified - J44.9?? Plan: * Treatment: * Billing Information: * Visit Code:?? 28035 Office Visit, New Pt., Level 5. * Procedure Codes:?? * NCIAL REPORTING ADVISOR Sign off status: Pending * Provider:??MD WILLIAM, Amy.Renay.C.P, F.A.S .N. Date:??07/01/2024
--- OUTSIDE RECORDS SUMMARY | 2024-09-07 01:00 | XMS_ITS | Referral Summary ---
Author Organization [facility] [address] [place] [address] [facility] Address [address] [place] [id number] Care Team Providers Care Brick Baker Name Role Phone Leandro Landry MD Unavailable [phone] Aris Maxwell MD Unavailable Claudio Kohler MD Primary Care Provider Encounters Date Type Department Care Team Description 08/31/2024 9:55 AM AIRCRAFT POWERPLANT REPAIRER - 08/31/2024 11:59 PM AIRCRAFT POWERPLANT REPAIRER Hospital Encounter [facility] [address] [place] [id number] Baldo Montejo NP Diabetic peripheral neuropathy associated with type 2 diabetes mellitus (CMS/HCC) (HCC) (Primary Dx); Myalgia; Long-term current use of opiate analgesic; Lumbosacral spondylosis without myelopathy; Spinal stenosis of lumbar region without neurogenic claudication; Chronic pain syndrome Discharge Disposition: Discharge to home or self care 07/05/2024 9:28 AM AIRCRAFT POWERPLANT REPAIRER - 07/05/2024 11:59 PM AIRCRAFT POWERPLANT REPAIRER Hospital Encounter [facility] [address] [place] [phone] Baldo Montejo NP Radiculopathy, lumbosacral region (Primary Dx); Chronic bilateral low back pain with bilateral sciatica; Long-term current use of opiate analgesic; Lumbosacral spondylosis without myelopathy; Spinal stenosis of lumbar region without neurogenic claudication; Chronic pain syndrome Discharge Disposition: Discharge to home or self care 06/20/2024 Telephone [facility] Diabetes [facility] Endocrinology [address] [place] [phone] Hilda De Souza, CONFERENCE SPECIALIST Med Management (Ozempic) from Last 3 Months Allergies Active Allergy Reactions Criticality Noted Date [...] tablet (100 mcg total) by mouth daily 018 Active fluticasone (FLONASE) 50 mcg/actuation nasal spray One spray each nostril daily 018 Active atorvastatin (LIPITOR) 80 mg tablet Take 1 tablet (80 mg total) by mouth daily Active albuterol 0.63 mg/3 mL nebulizer solution Take 3 mL (0.63 mg total) by nebulization every 6 (six) hours as needed for wheezing Active aspirin 81 mg enteric coated tablet Take 1 tablet (81 mg total) by mouth daily 30 tablet 1 021 Active docusate sodium (COLACE) 100 mg capsuleIndicati [...] TWICE DAILY FOR 7 DAYS 14 capsule Active lidocaine (LIDODERM) 5 % Place 1 [...] with long-term current use of insulin (HCC) Take 5-20 units before breakfast and dinner [...] hyperglycemia, with long-term current use of insulin ([facility]) CHECK BLOOD SUGAR THREE TIMES DAILY. Type 2 diabetes mellitus with hyperglycemia, with long-term current use of insulin . E11.65, Z79.4 300 each 3 023 Active baclofen (LIORESAL) 20 mg tablet TAKE 1 TABLET BY MOUTH THREE TIMES A DAY NEEDED Active DULoxetine DR (CYMBALTA) 60 mg capsule Take 1 capsule (60 mg total) by mouth every morning Active meloxicam (MOBIC) 7.5 mg tablet Take 1 tablet (7.5 mg total) by mouth 2 (two) times a day Active lancets (OneTouch Delica Plus Lancet) 33 gauge misc USE 1 EACH 3 (THREE) TIMES A DAY BEFORE MEALS 100 each 3 Active diazePAM (VALIUM) 10 mg tablet TAKE 1 TABLET BY MOUTH THREE TIMES A DAY NEEDED FOR ANXIETY Active fexofenadine (MAKENZIE) 60 mg tablet TAKE 1 TABLET BY MOUTH TWICE A DAY DIRECTED Active LORazepam (ATIVAN) 2 mg tablet TAKE 1 TABLET BY MOUTH 30 MINUTES BEFORE PROCEDURE AND 1 TABLET RIGHT BEFORE PROCEDURE Active isosorbide mononitrate ER (IMDUR) 30 mg [...] hyperglycemia, with long-term current use of insulin ([facility]) Inject 0.38 mL (76 Units total) under the skin daily 45 mL 2 09/07/11 Active blood-glucose meter kitIndications: Type 2 diabetes mellitus with hyperglycemia, with long-term current use of insulin ([facility]) One Touch Ultra Test blood sugars tid Dx:E11.65 insulin dependent 1 kit Active alcohol swabs (Alcohol Prep Pads) pads, medicatedIndica tions:Type 2 diabetes mellitus with hyperglycemia, with long-term current use of insulin ([facility]) USE ONE SWAB 3 TIMES A DAY DIRECTED 100 each 7 Active pen needle, diabetic (BD Virgen 2nd Gen Pen Needle) 32 gauge x 5/32 needleIndicatio ns:Type 2 diabetes mellitus with hyperglycemia, with long-term current use of insulin ([facility]) USE TO INJECT INSULIN UP TO 4 TIMES A DAY 400 each 3 Active OneTouch Ultra Test strip CHECK BLOOD SUGAR THREE TIMES A DAY OR DIRECTED 100 strip 3 Active clopidogreL (PLAVIX) 75 mg tablet Take 1 tablet (75 mg total) by mouth daily Active HYDROcodone-betsy taminophen (NORCO) 7.5-325 mg per tabletIndicatio ns:Pain Take 1 tablet by mouth every 8 (eight) hours as needed for pain 90 tablet 2024 Active HYDROcodone-betsy taminophen (NORCO) 7.5-325 mg per tabletIndicatio ns:Pain Take 1 tablet by mouth every 8 (eight) hours as needed for pain 90 tablet 025 2024 Active blood glucose diagnostic (OneTouch Ultra Test) strip CHECK BLOOD SUGAR THREE TIMES A DAY OR DIRECTED 100 strip 3 2024 Discontinued HYDROcodone-betsy taminophen (NORCO) 7.5-325 mg per tabletIndicatio ns:Pain Take 1 tablet by mouth every 8 (eight) hours as needed for pain 90 tablet 2024 Discontinued(R eorder) HYDROcodone-betsy taminophen (NORCO) 7.5-325 mg per tabletIndicatio ns:Pain Take 1 tablet by mouth every 8 (eight) hours as needed for pain 90 tablet 2024 Discontinued(R eorder) Active Problems Problem Noted [...] medications. Assessment & Plan (08/27/2023 12:19 PM AIRCRAFT POWERPLANT REPAIRER): Chronic problem. Managed by PCP. Currently taking [...] (11/21/2020): Added automatically from request for surgery [id number] Coronary artery disease invo lving [place] coronary artery of [place] heart without angina pectoris 11/21/2020 Overview (12/14/2020): Added automatically from request for surgery [id number] Enthesopathy of hip region 08/16/2020 Obstructive sleep [...] Hyperlipidemia associated with type 2 diabetes judith chanle 03/17/2017 Assessment & Plan (04/21/2024 10:52 AM CDT): Chronic problem. Controlled on current Atorvastatin 80mg. Last lipid panel: 12/08/22 LDL=63, MP=509. Will update labs today. Does not mychart. Verified phone #/address to contact re: results. Assessment & Plan (08/27/2023 11:56 AM AIRCRAFT POWERPLANT REPAIRER): Chronic problem. Controlled on current Atorvastatin 80mg. Last lipid panel: 12/08/22 LDL=63, ZT=292. No changes at this time. Assessment & Plan (05/19/2023 1:16 PM CDT): Chronic problem. Controlled on current Atorvastatin 80mg. Last lipid panel: 12/08/22 LDL=63, HH=189. No changes at this time. Assessment & Plan (12/08/2022 1:13 PM CDT): Chronic problem. Controlled on current Atorvastatin 80mg. Last lipid panel: 12/24/21 LDL=67, TD=769. No changes at this time. Will update labs today. Verified phone #/address to contact re: results. Assessment & Plan (08/18/2022 10:22 AM AIRCRAFT POWERPLANT REPAIRER): Chronic problem. On statin therapy, no changes. Assessment & Plan (02/27/2022 10:22 AM CDT): Chronic problem. On statin therapy, no changes. Assessment & Plan (12/24/2021 10:17 AM CDT): Chronic, well controlled Low fat Low cholesterol diet Exercise Continue statin therapy Check lipid profile Assessment & Plan (06/06/2021 11:16 AM CDT): Chronic problem. On statin therapy, no changes. Assessment & Plan (08/19/2020 3:45 PM AIRCRAFT POWERPLANT REPAIRER): Continue statin Assessment & Plan (12/13/2018 8:43 AM CDT): At goal on current medications. Assessment & Plan (08/28/2018 1:22 PM AIRCRAFT POWERPLANT REPAIRER): Check lipid panel Assessment & Plan (04/16/2018 2:31 PM CDT): Continue statin therapy Assessment & Plan (01/07/2018 3:01 PM CDT): Continue lovastatin Assessment & Plan (08/27/2017 1:12 PM AIRCRAFT POWERPLANT REPAIRER): Goal of treatment , LDL cholesterol less [...] hy associated with type 2 diabetes mellitus ([facility]) 03/17/2017 Assessment & Plan (04/21/2024 10:53 AM CDT): Chronic problem. Currently taking gabapentin 100mg bid. Reviewed foot care; needs to lotion daily. Aware to check feet nightly, not to go barefoot. Assessment & Plan (08/27/2023 11:56 AM AIRCRAFT POWERPLANT REPAIRER): Chronic problem. Currently taking gabapentin 100mg bid. [...] Scheduling. Assessment & Plan (07/12/2019 9:28 AM AIRCRAFT POWERPLANT REPAIRER): Foot care discussed Start Gabapentin. Assessment & Plan (01/07/2018 3:00 PM CDT): Schedule follow up with small machine bindery operator. Foot care and driving risks reviewed. Assessment & Plan (03/17/2017 9:41 AM CDT): Lenore Carolann Foot care discussed Diabetes mellitus 04/02/2015 [...] Had DM eye appt scheduled 05/2023 at [employer] [facility] but missed appt. Aware to call to [...] infection. Assessment & Plan (08/27/2023 12:54 PM AIRCRAFT POWERPLANT REPAIRER): Chronic problem. Not at goal. A1c has remained stable at 8.3% Will increase Trulicity from 3mg to 4.5mg weekly. Discussed possible shortage; states she has 6 weeks left. Will call if any difficulty obtaining the 4.5mg dose of Trulicity. Discussed moving to Ozempic if unable to obtain Trulicity. Current medications: [...] Had DM eye appt scheduled 05/[address] [place] [facility] but missed appt. Aware to call to [...] DM eye appt scheduled next week at [place] [facility]. Letter will be sent to get copy [...] infection. Assessment & Plan (08/18/2022 10:39 AM AIRCRAFT POWERPLANT REPAIRER): Chronic problem, not at goal. A1c higher [...] exam. Assessment & Plan (08/19/2020 3:49 PM AIRCRAFT POWERPLANT REPAIRER): A1c 8.1. Will try to get Omnipod [...] resource to check for a therapist in [place] for support with family situation. Assessment & Plan (07/12/2019 9:28 AM AIRCRAFT POWERPLANT REPAIRER): Your Hba1c today was: Lab Results Component Value Date HGBA1C 8.5 (A) 07/12/2019 meaning a 3 month average sugar of : 197 Your goal hba1c is under 7.0 to prevent snf diabetes complications ( eye , kidney and [...] plan. Assessment & Plan (08/28/2018 1:24 PM AIRCRAFT POWERPLANT REPAIRER): A1c 8.3. Improved. Have asked her to [...] results. Assessment & Plan (08/27/2023 11:56 AM AIRCRAFT POWERPLANT REPAIRER): Chronic problem. Controlled on current Metoprolol tartrate [...] results. Assessment & Plan (08/18/2022 10:22 AM AIRCRAFT POWERPLANT REPAIRER): Controlled on current medications, no changes. Assessment & Plan (02/27/2022 10:22 AM CDT): Controlled on current medications, no changes. Assessment & Plan (06/06/2021 11:15 AM CDT): Controlled on current medications, no changes. Assessment & Plan (08/19/2020 3:45 PM AIRCRAFT POWERPLANT REPAIRER): Continue current medication Assessment & Plan (05/03/2020 4:52 PM CDT): Controlled on current medications. Continue plan. Assessment & Plan (12/13/2018 8:44 AM CDT): Continue current medication. Check home BP readings Assessment & Plan (08/28/2018 1:21 PM AIRCRAFT POWERPLANT REPAIRER): Controlled on current medications. Assessment & Plan (04/16/2018 2:30 PM CDT): Controlled on current medications. Assessment & Plan (01/07/2018 3:02 PM CDT): Controlled on current medications. Assessment & Plan (08/27/2017 1:11 PM AIRCRAFT POWERPLANT REPAIRER): Goal blood pressure is less than 140/85 [...] 12/08/2022 Assessment & Plan (08/18/2022 10:37 AM AIRCRAFT POWERPLANT REPAIRER): Chronic problem, improving. Increase Trulicity. Assessment & Plan (02/27/2022 12:28 PM CDT): Chronic problem, not at goal. Adjust medications as above. Hip pain 08/16/2020 12/08/2022 Edema 11/23/2018 12/08/2022 Skin lesion of hand 05/19/2018 12/09/19 Face lesion 05/19/2018 12/08/2022 Uncontrolled type 2 diabetes mellitus with hyperglycemia, with long-term current use of insulin 03/17/2017 05/27/2022 Assessment & Plan (01/07/2018 3:04 PM CDT): A1c 9.2. Main issue is sugary drinks causing constant BG spikes throughout the day. Strongly advised no regular soda or sweet tea. Foot care reviewed. Needs to follow up with small machine bindery operator. Assessment & Plan (08/27/2017 1:25 PM AIRCRAFT POWERPLANT REPAIRER): Your Hba1c today was: 9.1 meaning a 3 month average sugar of : 220 Your goal hba1c is under 7.0 to prevent snf diabetes complications ( eye , kidney and [...] therapy Shortness of breath 09/13/2010 12/09/19 23 Immunizations Name Administration Dates Next Due Pfizer SARS-CoV-2 Monovalent Vaccination (12+ Yrs) PURPLE 11/01/2020,10/11/2020,07/31/2020,2019 Social History Tobacco Use Types Packs/Day Years [...] often do you attend chur ch or taoist services? Never 12/14/2020 Do you belong to any clubs o r organizations such as mosque groups, unions, fraternal or athletic groups, or [...] on file Legal Sex Female 12:18 AM AIRCRAFT POWERPLANT REPAIRER Gender Identity Not on file Sexual Orientation Not on file Last Filed Vital Signs Vital Sign Reading Time Taken Comments Blood Pressure 111/61 08/31/2024 10:28 AM AIRCRAFT POWERPLANT REPAIRER Pulse 79 08/31/2024 10:28 AM AIRCRAFT POWERPLANT REPAIRER Temperature 36.4 ??C (97.5 ??F) 05/03/2024 10:19 AM C DT Respiratory Rate 17 08/31/2024 10:28 AM AIRCRAFT POWERPLANT REPAIRER Oxygen Saturation 100% 08/31/2024 10:28 AM AIRCRAFT POWERPLANT REPAIRER Inhaled Oxygen Concentration - - Weight 94.3 kg (208 lb) 04/21/2024 10:38 AM CDT Height 162.2 cm (5' 3.86 ) 04/21/2024 10:38 AM C DT Body Mass Index 35.86 04/21/2024 10:38 AM CDT Plan of Treatment Not on file Procedures Procedure Name Priority Date/Time Associated Diagnosis [...] Results * eGFR (04/21/2024 11:25 AM CDT) [facility] eGFR 69 >=60 mL/min/1. 73 m2 Comment: [...] AM CDT 04/21/2024 3:05 PM CDT us Hildaisiah De Souza CONFERENCE SPECIALIST LAB BLOOD ORDERABLES [facility] l Result Performing Organization Address [facility] Co de Phone Number FRAN ARAUZ [phone] [address] [place] [address] * Albumin Creatinine Ratio, Urine (04/21/2024 11:25 AM CDT) Albumin Ur <12.0 mg/L Comment: Interpretive Data No reference range established. Current interpretive data was last revised 2018. Creatinine Ur 113.2 mg/dL FRAN Comment: Interpretive Data No reference range established. Current interpretive data was last revised 2018. Albumin Creatinine Ratio, Ur <11 1 - 29 mg/g FRAN Urine 04/21/2024 11:2 5 AM CDT 04/21/2024 2:59 PM CDT us Hilda De Souza NP LAB URINE ORDERABLES [facility] Result Performing Organization Address [facility]/ZIP Co de Phone Number MARSHACARMENCITA ARAUZ [address] [place] [address] * Lipid panel (04/21/2024 11:25 AM CDT) [...] on 2018. Triglycerides 114 <=149 mg/dL FRAN ARAUZ Comment: Interpretive Data Ages [...] on 2018. HDL 55 >=40 mg/dL FRAN ARAUZ Comment: Interpretive Data Ages [...] 2018. LDL, calculated 37 <=129 mg/dL FRAN ARAUZ Comment: Interpretive Data Ages [...] last revised on 2018. Chol/HDL ratio 2 CERCARMENCITA CH Blood 04/21/2024 11:2 5 AM CDT 04/21/2024 2:59 PM CDT Hilda De Souza NP LAB BLOOD ORDERABLES [facility] Result FRAN [address] Department [place] [address] * (ABNORMAL) POCT hemoglobin A1c (04/21/2024 10:43 AM CDT) Hemoglobin A1C, POC 7.7 4.0 - 5.6 % Blood 04/21/2024 10:4 3 AM CDT Hilda De Souza NP POINT OF CARE TEST ORDERA BLES Final Result * Diabetic Foot Exam (11/19/2022) [place] Provider HEALTH MAINTENANCE Final Result * Occult blood, fecal non neoplasm screening (01/03/2019 11:45 AM CDT) Occult blood, fecal Negative Negative [facility] Collection date feces [id number] [facility] Collection time , feces 1143 [facility] Stool 01/03/2019 11:4 5 AM CDT 01/03/2019 11:49 AM CDT Narrative [facility] - 01/03/2019 11:52 AM CDT Jose F Apple MD LAB BODY FLUIDS AND STOOLS O RDERABLES Final Result [facility] ([place]) [address] [facility] Department [place] [address] * Diabetic Eye Exam (11/25/2017) us Historical Provider HEALTH MAINTENANCE Edited Result - Final from Last 3 Months or Most Recently Relevant to Health Maintenance Insurance [facility] MEDICARE MEDICARE [facility] MEDICARE MEDICARE [facility] IDPA [employer] MEDICARE [place] Advance Directives For more information, please contact: [phone] * Full Code (Latest Code Status on File) Date Activated Date Inactivated Comments 12/19/2020 2:28 PM 12/25/2020 8:05 PM Care Teams Brick Baker Relationship Specialty Start Date End Date Claudio Kohler MD [address] [facility] [address] [place] [address] PCP - General Gastroenterology 04/21/24 [place] [address] [place] [address] Surgeon Cardiothoracic Surgery 12/25/20 [place] [address] [place] [address] Consulting Physician Cardiology 12/25/20
--- NOTE | 2024-09-07 01:01 | PC.NURSE ---
pt holding dry rag to nose.
--- OUTSIDE RECORDS SUMMARY | 2024-09-07 01:01 | XMS_ITS | Clinical Summary ---
Author Organization [facility] Address [address] [place] [address] Phone Care Team Providers Care Field Support Technician Name Role Phone Aris Maxwell Primary Care Provider [phone] Allergies Active Allergy Reactions Criticality Noted Date Comments Lisinopril Swelling High 02/20/2023 Naproxen Nausea 02/20/2023 Medications HYDROcodone-galilea taminophen (NORCO) 5-325 MG TabletIndicatio ns:Closed avulsion fracture of distal end of right fibula, initial encounter Take 1 Tablet by mouth every 8 hours as needed for Moderate or more severe pain. 20 Tablet 02/20/2023 Active Social History Tobacco Use Types Packs/Day Years Used Date Smoking Tobacco: Never Smokeless Tobacco: Never Tobacco Cessation:Counseling Given: Not Answered Alcohol Use Standard Drinks/Week Comments Not Currently 0 (1 standard drink = 0.6 oz pur e alcohol) Occasionally Comments No Sex and Gender Information Value Date Recorded Sex Assigned at Not on file Legal Sex Female 8:01 PM CDT Gender Identity Not on file Sexual Orientation Not on file Last Filed Vital Signs Vital Sign Reading Time Taken Comments Blood Pressure 110/61 02/20/2023 12:38 PM CDT Pulse 58 02/20/2023 12:38 PM CDT Temperature 36.5 ??C (97.7 ??F) 02/20/2023 11:00 AM C DT Respiratory Rate 18 02/20/2023 12:38 PM CDT Oxygen Saturation 99% 02/20/2023 12:38 PM CDT Inhaled Oxygen Concentration - - Weight 89.8 kg (198 lb) 02/20/2023 11:00 AM CDT Height 165.1 cm (5' 5 ) 02/20/2023 11:00 AM CDT Body Mass Index 32.95 02/20/2023 11:00 AM CDT Plan of Treatment Health Maintenance Due Date Last Done Comments Hepatitis C Virus (HCV) Screening 1960 TdaP Immunization 1960 Pap Smear 1981 Cervical Cancer Screening (CCS) 1990 HPV/Cotest 1990 Colonoscopy 2005 Colorectal Cancer Screening 2005 Cologuard 2010 Immunochemical Fecal Occult Blood 2010 Mammogram 2010 Pneumococcal Immunization (50+ years) (1 of 1 - PCV) 2010 Zoster Immunization (1 of 2) 2010 Influenza Immunization (#1) 2024 SARS-COV-2 Immunization ( season) 2024 11/01/2020, 10/11/2020, 07/31/2020, Additional history exists Respiratory Syncytial Virus (RSV) Immunization (Adult) (1 - 1-dose 75+ series) 2035 Hepatitis B Immunization Aged Out No longer eligible based on patient's age to complete this topic Meningococcal Immunization (ACWY) Aged Out No longer eligible based on patient's age to complete this topic Pneumococcal Immunization Combined Aged Out No longer eligible based on patient's age to complete this topic Rotavirus Immunization Aged Out No lo nger eligible based on patient's age to complete this topic Insurance MEDICARE [place]ICAID [place] Care Teams Field Support Technician Relationship Specialty Start Date End Date Aris Maxwell [id number] [place] [address] PCP - General 02/20/23
[2024-09-07 01:11] VITALS: BP 170/95; PULSE 91; RESP 18; TEMP 36.2; O2SAT 98
--- NOTE | 2024-09-07 04:06 | PC.NURSE ---
Pt and pt friend came up to nurses station stating they were leaving and going to [place]. Pt advised to come back if symptoms worsen.
--- OUTSIDE RECORDS SUMMARY | 2024-09-07 04:19 | XMS_ITS | Referral Summary ---
Author Organization [facility] [address] [place] [address] [facility] Address [address] [place] [address] Care Team Providers Care Lift Supervisor Name Role Phone Leandro Landry MD Unavailable [phone] Aris Maxwell MD Unavailable Claudio Kohler MD Primary Care Provider Encounters Date Type Department Care Team Description 08/31/2024 9:55 AM SOFTWARE PUBLISHER - 08/31/2024 11:59 PM SOFTWARE PUBLISHER Hospital Encounter [facility] [address] [place] [address] Baldo Montejo NP Diabetic peripheral neuropathy associated with type 2 diabetes mellitus (CMS/HCC) (HCC) (Primary Dx); Myalgia; Long-term current use of opiate analgesic; Lumbosacral spondylosis without myelopathy; Spinal stenosis of lumbar region without neurogenic claudication; Chronic pain syndrome Discharge Disposition: Discharge to home or self care 07/05/2024 9:28 AM SOFTWARE PUBLISHER - 07/05/2024 11:59 PM SOFTWARE PUBLISHER Hospital Encounter [facility] [address] [place] [phone] Baldo Montejo NP Radiculopathy, lumbosacral region (Primary Dx); Chronic bilateral low back pain with bilateral sciatica; Long-term current use of opiate analgesic; Lumbosacral spondylosis without myelopathy; Spinal stenosis of lumbar region without neurogenic claudication; Chronic pain syndrome Discharge Disposition: Discharge to home or self care 06/20/2024 Telephone [facility] Diabetes [facility] Endocrinology [address] [place] [phone] Hilda De Souza, BIOLOGIST Med Management (Ozempic) from Last 3 Months [...] hyperglycemia, with long-term current use of insulin ([facility]) CHECK BLOOD SUGAR THREE TIMES DAILY. Type [...] hyperglycemia, with long-term current use of insulin ([facility]) Inject 0.38 mL (76 Units total) under the skin daily 45 mL 2 09/07/11 Active blood-glucose meter kitIndications: Type 2 diabetes mellitus with hyperglycemia, with long-term current use of insulin ([facility]) One Touch Ultra Test blood sugars tid Dx:E11.65 insulin dependent 1 kit Active alcohol swabs (Alcohol Prep Pads) pads, medicatedIndica tions:Type 2 diabetes mellitus with hyperglycemia, with long-term current use of insulin ([facility]) USE ONE SWAB 3 TIMES A DAY DIRECTED 100 each 7 Active pen needle, diabetic (BD Virgen 2nd Gen Pen Needle) 32 gauge x 5/32 needleIndicatio ns:Type 2 diabetes mellitus with hyperglycemia, with long-term current use of insulin ([facility]) USE TO INJECT INSULIN UP TO 4 [...] medications. Assessment & Plan (08/27/2023 12:19 PM SOFTWARE PUBLISHER): Chronic problem. Managed by PCP. Currently taking [...] (11/21/2020): Added automatically from request for surgery [id number] Coronary artery disease invo lving douglas coronary artery of douglas heart without angina pectoris 11/21/2020 Overview (12/14/2020): Added automatically from request for surgery [id number] Enthesopathy of hip region 08/16/2020 Obstructive sleep [...] Atorvastatin 80mg. Last lipid panel: 12/08/22 LDL=63, VG=127. Will update labs today. Does not mychart. Verified phone #/address to contact re: results. Assessment & Plan (08/27/2023 11:56 AM SOFTWARE PUBLISHER): Chronic problem. Controlled on current Atorvastatin 80mg. Last lipid panel: 12/08/22 LDL=63, XE=624. No changes at this time. Assessment & Plan (05/19/2023 1:16 PM CDT): Chronic problem. Controlled on current Atorvastatin 80mg. Last lipid panel: 12/08/22 LDL=63, VT=235. No changes at this time. Assessment & Plan (12/08/2022 1:13 PM CDT): Chronic problem. Controlled on current Atorvastatin 80mg. Last lipid panel: 12/24/21 LDL=67, HU=723. No changes at this time. Will update labs today. Verified phone #/address to contact re: results. Assessment & Plan (08/18/2022 10:22 AM SOFTWARE PUBLISHER): Chronic problem. On statin therapy, no changes. Assessment & Plan (02/27/2022 10:22 AM CDT): Chronic problem. On statin therapy, no changes. Assessment & Plan (12/24/2021 10:17 AM CDT): Chronic, well controlled Low fat Low cholesterol diet Exercise Continue statin therapy Check lipid profile Assessment & Plan (06/06/2021 11:16 AM CDT): Chronic problem. On statin therapy, no changes. Assessment & Plan (08/19/2020 3:45 PM SOFTWARE PUBLISHER): Continue statin Assessment & Plan (12/13/2018 8:43 AM CDT): At goal on current medications. Assessment & Plan (08/28/2018 1:22 PM SOFTWARE PUBLISHER): Check lipid panel Assessment & Plan (04/16/2018 2:31 PM CDT): Continue statin therapy Assessment & Plan (01/07/2018 3:01 PM CDT): Continue lovastatin Assessment & Plan (08/27/2017 1:12 PM SOFTWARE PUBLISHER): Goal of treatment , LDL cholesterol less [...] hy associated with type 2 diabetes mellitus ([facility]) 03/17/2017 Assessment & Plan (04/21/2024 10:53 AM CDT): Chronic problem. Currently taking gabapentin 100mg bid. Reviewed foot care; needs to lotion daily. Aware to check feet nightly, not to go barefoot. Assessment & Plan (08/27/2023 11:56 AM SOFTWARE PUBLISHER): Chronic problem. Currently taking gabapentin 100mg bid. [...] Scheduling. Assessment & Plan (07/12/2019 9:28 AM SOFTWARE PUBLISHER): Foot care discussed Start Gabapentin. Assessment & Plan (01/07/2018 3:00 PM CDT): Schedule follow up with government affairs researcher. Foot care and driving risks reviewed. Assessment [...] Had DM eye appt scheduled 05/2023 at [facility] [place] but missed appt. Aware to call to [...] infection. Assessment & Plan (08/27/2023 12:54 PM SOFTWARE PUBLISHER): Chronic problem. Not at goal. A1c has [...] Had DM eye appt scheduled 05/2023 at [facility] [place] but missed appt. Aware to call to [...] DM eye appt scheduled next week at [facility] [place]. Letter will be sent to get copy [...] infection. Assessment & Plan (08/18/2022 10:39 AM SOFTWARE PUBLISHER): Chronic problem, not at goal. A1c higher [...] exam. Assessment & Plan (08/19/2020 3:49 PM SOFTWARE PUBLISHER): A1c 8.1. Will try to get Omnipod [...] resource to check for a therapist in [place] for support with family situation. Assessment & Plan (07/12/2019 9:28 AM SOFTWARE PUBLISHER): Your Hba1c today was: Lab Results Component Value Date HGBA1C 8.5 (A) 07/12/2019 meaning a 3 month average sugar of : 197 Your goal hba1c is under 7.0 to prevent custodial diabetes complications ( eye , kidney and [...] goal hba1c is under 7.0 to prevent adjunct faculty for medical terminology diabetes complications ( eye , kidney and [...] plan. Assessment & Plan (08/28/2018 1:24 PM SOFTWARE PUBLISHER): A1c 8.3. Improved. Have asked her to [...] results. Assessment & Plan (08/27/2023 11:56 AM SOFTWARE PUBLISHER): Chronic problem. Controlled on current Metoprolol tartrate [...] results. Assessment & Plan (08/18/2022 10:22 AM SOFTWARE PUBLISHER): Controlled on current medications, no changes. Assessment & Plan (02/27/2022 10:22 AM CDT): Controlled on current medications, no changes. Assessment & Plan (06/06/2021 11:15 AM CDT): Controlled on current medications, no changes. Assessment & Plan (08/19/2020 3:45 PM SOFTWARE PUBLISHER): Continue current medication Assessment & Plan (05/03/2020 4:52 PM CDT): Controlled on current medications. Continue plan. Assessment & Plan (12/13/2018 8:44 AM CDT): Continue current medication. Check home BP readings Assessment & Plan (08/28/2018 1:21 PM SOFTWARE PUBLISHER): Controlled on current medications. Assessment & Plan (04/16/2018 2:30 PM CDT): Controlled on current medications. Assessment & Plan (01/07/2018 3:02 PM CDT): Controlled on current medications. Assessment & Plan (08/27/2017 1:11 PM SOFTWARE PUBLISHER): Goal blood pressure is less than 140/85 [...] 12/08/2022 Assessment & Plan (08/18/2022 10:37 AM SOFTWARE PUBLISHER): Chronic problem, improving. Increase Trulicity. Assessment & [...] care reviewed. Needs to follow up with government affairs researcher. Assessment & Plan (08/27/2017 1:25 PM SOFTWARE PUBLISHER): Your Hba1c today was: 9.1 meaning a 3 month average sugar of : 220 Your goal hba1c is under 7.0 to prevent custodial diabetes complications ( eye , kidney and [...] often do you attend chur ch or latter day services? Never 12/14/2020 Do you belong to any clubs o r organizations such as mormonism groups, unions, fraternal or athletic groups, or [...] on file Legal Sex Female 12:18 AM SOFTWARE PUBLISHER Gender Identity Not on file Sexual Orientation Not on file Last Filed Vital Signs Vital Sign Reading Time Taken Comments Blood Pressure 111/61 08/31/2024 10:28 AM SOFTWARE PUBLISHER Pulse 79 08/31/2024 10:28 AM SOFTWARE PUBLISHER Temperature 36.4 ??C (97.5 ??F) 05/03/2024 10:19 AM C DT Respiratory Rate 17 08/31/2024 10:28 AM SOFTWARE PUBLISHER Oxygen Saturation 100% 08/31/2024 10:28 AM SOFTWARE PUBLISHER Inhaled Oxygen Concentration - - Weight 94.3 [...] Results * eGFR (04/21/2024 11:25 AM CDT) [facility] eGFR 69 >=60 mL/min/1. 73 m2 [...] 3:05 PM CDT us Hildaisiah De Souza BIOLOGIST LAB BLOOD ORDERABLES Genesis l Result Performing Organization Address [facility] Co de Phone Number FRAN ARAUZ [address] [address] [place] [address] * Albumin Creatinine Ratio, Urine [...] CDT 04/21/2024 2:59 PM CDT us Hilda D eSouza NP LAB URINE ORDERABLES Genesis l Result Performing Organization Address [facility]/ZIP Co de Phone Number MARSHACARMENCITA ARAUZ [address] [address] [place] [address] * Lipid panel (04/21/2024 11:25 [...] LAB BLOOD ORDERABLES Genesis l Result FRAN [address] Department [place] [address] * (ABNORMAL) POCT hemoglobin A1c (04/21/2024 10:43 [...] RDERABLES Final Result FRAN MORALES (MALACHI) 1 [facility] Department [place] [address] * Diabetic Eye Exam (11/25/2017) us Historical Provider HEALTH MAINTENANCE Edited Result - Final from Last 3 Months or Most Recently Relevant to Health Maintenance Insurance [facility] MEDICARE MEDICARE [facility] MEDICARE MEDICARE [facility] IDPA [employer] MEDICARE GOLD Advance Directives For more information, please contact: [phone] * Full Code (Latest Code Status on File) Date Activated Date Inactivated Comments 12/19/2020 2:28 PM 12/25/2020 8:05 PM Care Teams Lift Supervisor Relationship Specialty Start Date End Date Claudio Kohler MD [address] [facility] [address] [place] [address] PCP - General Gastroenterology 04/21/24 [place] [address] [address] [place] [address] Surgeon Cardiothoracic Surgery 12/25/20 [place] [address] [place] [address] Consulting Physician Cardiology 12/25/20
--- OUTSIDE RECORDS SUMMARY | 2024-09-07 04:19 | XMS_ITS | Clinical Summary ---
Author Organization [facility] Address [address] [place] [address]. [place], [place] [address] [place] [address] Care Team Providers Care Focused Factory Manager Name Role Phone None, Provider MD Primary [...] [employer] Care Teams Focused Factory Manager Relationship Specialty Start Date End Date None, Provider, PCP - General UNKNOWN PHYSICIAN SPECIALTY 01/27/24
--- OUTSIDE RECORDS SUMMARY | 2024-09-07 04:19 | XMS_ITS | Clinical Summary ---
Author Organization [employer] Address [address] [facility] Attn: Epic Prelude ADT LUISA LAYTON GILDA [address] Care Team Providers Care Systems Operator Name Role Phone Unavailable Primary Care Provider Unavailabl e Social History Tobacco Use Types Packs/Day Years Used Date Smoking Tobacco: Never Assessed Comments Unknown Sex and Gender Information Value Date Recorded Sex Assigned at Not on file Legal Sex Female 5:37 AM ROCK CONTRACTOR Gender Identity Not on file Sexual Orientation [...]
--- OUTSIDE RECORDS SUMMARY | 2024-09-07 04:19 | XMS_ITS | Referral Summary ---
Author Organization [facility] Address [address] [facility] [place] [address] Care Team Providers Care Workers' Compensation Commissioner Name Role Phone Berna Carson MD Primary Care Provider [phone] Source Comments [facility],non-owned Affiliates and Associated Physician Practices is amultiple site organization consisting of ambulatory clinics and hospital sitesin [place], [place], [place] and [place]. This disclosure is being madepursuant to the Care Everywhere program and may not contain all information available regarding this patient. Last updated 18.[facility] Allergies Active Allergy Reactions Criticality Noted Date [...] fluticasone propionate (FLONASE) 50 MCG/ACT nasal spray [place] 2 (two) sprays into each nostril 2 [...] st Contact Info) Description 09/09/2024 11:00 AM VEHICLE WINDOW TINTER Office Visit [facility] - Dermatology [facility] [facility], [place] [phone] Rola Dave MD [facility] 3 [place] [phone] Care Teams Workers' Compensation Commissioner Relationship Specialty Start Date End Date Berna Carson MD [address] [place] [address] [facility] - General 03/09/18
--- OUTSIDE RECORDS SUMMARY | 2024-09-07 04:19 | XMS_ITS | Patient Health Summary ---
Author Organization [facility] Address [address] [facility] [place] [address] Care Team Providers Care Management Nurse Rn Name Role Phone Berna Carson MD Primary Care Provider [phone] Note from [facility],non-owned Affiliates and Associated Physician Practices is amultiple site organization consisting of ambulatory clinics and hospital sitesin [place], [place], [place] and [place]. This disclosure is being madepursuant to the Care Everywhere program and may not contain all information available regarding this patient. Last updated 18.[facility] Allergies * Amlodipine Base(Swelling) -High Criticality * [...] propionate (FLONASE) 50 MCG/ACT nasal spray(Started 05/12/2018) [place] 2 (two) sprays into each nostril 2 [...] 35.02 11/09/2018 9:11 AM CDT Procedures * RI CHMSRG MOHS MG TQ H/N/H/F/G 1ST STAG 5 BLOC(Performed 10/08/2023) Performed for Basal cell carcinoma (BCC) of skin of left upper lip * RI ADJ TISS XFER HEAD,FAC,HAND 10.1-30(Performed 10/08/2023) Performed for Basal cell carcinoma (BCC) of skin of left upper lip * PROC BIOPSY OF SKIN LESION(Performed 09/04/2023) Performed for Neoplasm of uncertain behavior * PROC DESTRUCTION OF PRE-MALIGNANT LESIONS(Performed 09/04/2023) Performed for Actinic keratosis * DERMATOPATHOLOGY(Performed 09/04/2023) Performed for Neoplasm of uncertain behavior * RI DESTRUCT BENIGN LESION, 1-14(Performed 04/25/2022) Performed for Seborrheic keratosis, inflamed * RI DESTROY PREMALIG LESION, 1ST LESION(Performed 04/25/2022) Performed for Actinic keratosis * RI TANGNTL BX SKIN SINGLE LES(Performed 04/25/2022) Performed for Neoplasm of uncertain behavior of skin * DERMATOPATHOLOGY(Performed 04/25/2022) Performed for Neoplasm of uncertain behavior of skin * RI DESTROY PREMALIG LESION, 1ST LESION(Performed 11/11/2018) Performed for Actinic keratoses * RI DESTROY PREMALIG LESION, 2-14(Performed 11/11/2018) Performed for Actinic keratoses Results * RI ADJ TISS XFER HEAD,FAC,HAND 10.1-30, RI CHMSRG MOHS MG TQ H/N/H/F/G 1ST STAG 5 BLOC (10/08/2023 2:45 PM FLIGHT DATA TECHNICIAN) John Curtis MD - 10/08/2023 2:45 PM [...] final defect: adipose Previous dermpath accession #: [id number] Repair type: rotation flap Mohs accession #: [id number] Surgeon and Pathologist: oJhn Timmons MD served as both surgeon and pathologist. No other physician was involved in the cancer removal or pathology interpretation. Assistants: Nicholas Mederos MD Indications for Mohs Surgery Removal of the patient's tumor is complicated by the following clinical features: Clinical area critical for tissue conservation (Area H: central face, eyelids, eyebrows, nose, lips, chin, ear, periauricular, bahai, genitalia, hands, feet, ankles, nail units and [...] confirmed by the patient. All components of [place] Protocol/PAUSE Rule completed. STAGE I: The patient [...] presence: Not Present [facility] Mohs CLIA # [id number] Mohs laboratory apparatus glass blower: Mena Masterson MD REPAIR: Rotation Flap Primary Surgeon: John Timmons MD Supervisor Dry Cell Assembly: Nicholas Mederos MD Repair Size/Flap Dimensions: 3.0 [...] BIOPSY OF SKIN LESION (09/04/2023 5:14 PM FLIGHT DATA TECHNICIAN) Narrative Rola Dave MD - 09/04/2023 5:14 PM FLIGHT DATA TECHNICIAN Ulises Sexton MD ? 09/13/2023 12:24 PM Risks, benefits and alternatives to shave biopsy were discussed with the patient. Verbal consent obtained. Location: Left upper cutaneous lip Skin prep: Alcohol Anesthesia: 1% lidocaine with epinephrine Hemostasis: Aluminum Chloride Dressing and wound care discussed. Patient agrees to Rutanet or etouches message for results if not available. Ulises Sexton MD Internal Medicine Resident Rola Dave MD PROCEDURE/ARTHUR R SURGICAL ORDERABLES * PROC DESTRUCTION OF PRE-MALIGNANT LESIONS (09/04/2023 5:13 PM FLIGHT DATA TECHNICIAN) Narrative Rola Dave MD - 09/04/2023 5:13 PM FLIGHT DATA TECHNICIAN Ulises Sexton MD ? 09/13/2023 12:24 PM Diagnosis and treatment options discussed. Liquid nitrogen was applied to 2 lesions (see office visit note for locations) for 6-10 seconds each for 1 cycle. Wound care reviewed. Rola Dave MD PROCEDURE/ARTHUR R SURGICAL ORDERABLES * DERMATOPATHOLOGY (09/04/2023 3:33 AM FLIGHT DATA TECHNICIAN) Only the most recent of2 resultswithin the time period is included. Case Report Dermatopathology Report ? Case: [id number] ? Authorizing Provider: ??Rola Dave, ?? Collected: ? 09/04/2023 03:33 AM ? MD ? Ordering Location: ? [facility] - Dermatology ?Received: ?09/05/2023 08:37 AM ? Pathologist: ? Caroline Russo MD ? Specimen: ?Skin, left upper cutaneous lip ? 4 2:14 PM FLIGHT DATA TECHNICIAN DERMATOPATHOLOGY LABORATORY Final Diagnosis Specimen A. SKIN, left upper cutaneous lip: BASAL CELL CARCINOMA, INFILTRATIVE PATTERN (C44.319) 4 2:14 PM FLIGHT DATA TECHNICIAN DERMATOPATHOLOGY LABORATORY Clinical History BCC vs SCC 4 2:14 PM FLIGHT DATA TECHNICIAN DERMATOPATHOLOGY LABORATORY Gross Description Specimen A: Received is one formalin filled container labeled with the patient's name and designated left upper cutaneous lip. The specimen consists of a(2) pieces shave biopsy measuring 3x4x1,2x2x1 mm. Jar 0. 2:14 PM [facility] DERMATOPATHOLOGY LABORATORY Microscopic Description Specimen A. SKIN, left upper cutaneous lip: Within the dermis there are nodular aggregates of basaloid cells associated with fibromyxoid stroma and epithelial-stromal clefts. At the advancing margin of the neoplasm, there are smaller angulated nests that infiltrate the dermis. 4 2:14 PM [facility] DERMATOPATHOLOGY LABORATORY Disclaimer An external and internal positive and negative controls are appropriate for the histochemical, immunohistochemical and immunofluorescence stain(s) in this case (if any), except where stated explicitly. The performance characteristics of the stain(s) cited in this report were developed and its performance characteristic determined by the Dermatopathology Laboratory at [facility], directed by Dr. Michell Tsang. These tests need not be, and therefore are not, approved by the [place] Food and Drug Administration. The tests are used for clinical purposes. Billing Codes Specimen Charges Stain Charges 87906 1 4 2:14 PM [facility] DERMATOPATHOLOGY LABORATORY Embedded Images 2:14 PM [facility] DERMATOPATHOLOGY LABORATORY Pathology/Cytolo gy TISSUE SPECIMEN FROM SKIN / Unknown 09/04/2023 3:33 AM FLIGHT DATA TECHNICIAN 09/05/2023 8:37 AM FLIGHT DATA TECHNICIAN Rola Dave MD LAB - PATHOLOG Y/CYTOLOGY ORDERABLES DERMATOPATHOLOGY LABORATORY [facility] - Department of Dermatology [address], [address] [phone] * RI DESTRUCT BENIGN LESION, 1-14 (04/25/2022 11:45 AM [...] Dave MD PROCEDURE/ARTHUR R SURGICAL ORDERABLES * RI DESTROY PREMALIG LESION, 1ST LESION (04/25/2022 11:23 AM CDT) Narrative Rola Dave MD - 04/25/2022 11:23 AM CDT Darren Mederos MD ? 04/25/2022 11:23 AM Diagnosis and treatment options discussed. Cryotherapy (Liquid Nitrogen) to AK x1 on L forehead x 6-10 seconds each. Number of cycles: 1. Wound care reviewed. Rola Dave MD PROCEDURE/ARTHUR R SURGICAL ORDERABLES * RI TANGNTL BX SKIN SINGLE LES (04/25/2022 11:22 [...] a patient labeled container and sent to [facility] Dermatopathology. Patient agrees to phone call for results and message if not available. Darren Mederos MD Rola Dave MD PROCEDURE/ARTHUR R SURGICAL ORDERABLES * RI DESTROY PREMALIG LESION, 2-14, RI DESTROY PREMALIG LESION, 1ST LESION (11/11/2018 2:35 [...] MD PROCEDURE/MINOR KAN RGICAL ORDERABLES Care Teams Management Nurse Rn Relationship Specialty Start Date End Date Berna Carson MD [address] [place] [address] PCP - General 03/09/18
--- OUTSIDE RECORDS SUMMARY | 2024-09-07 04:19 | XMS_ITS | Clinical Summary ---
Author Organization [facility] [employer] Address [address] [facility] [place] [address] Care Team Providers Care Recreation Aide Name Role Phone Berna Carson MD Primary Care Provider Source Comments [facility] [employer],non-owned Affiliates and Associated Physician Practices is amultiple site organization consisting of ambulatory clinics and hospital sitesin [place], [place], [place] and [place]. This disclosure is being madepursuant to the Care Everywhere program and may not contain all information available regarding this patient. Last updated 18.[facility] [employer] Allergies Active Allergy Reactions Criticality Noted Date [...] fluticasone propionate (FLONASE) 50 MCG/ACT nasal spray [place] 2 (two) sprays into each nostril 2 [...] st Contact Info) Description 09/09/2024 11:00 AM MARITIME ENGINEER Office Visit [facility] - Dermatology [address] [place] [address], [place] [address] Rola Dave MD [facility] 3 [place] [id number] Health Maintenance Due Date Last Done Comments [...] age to complete this topic Care Teams Recreation Aide Relationship Specialty Start Date End Date Beran Carson MD [address] [place] [address] PCP - General 03/09/18
--- OUTSIDE RECORDS SUMMARY | 2024-09-07 04:19 | XMS_ITS | Encounter Summary ---
Author Organization [facility] Address [address] [place] [address] Care Team Providers Care Consumer Loan Processor Name Role Phone Unavailable Primary Care Provider Unavailabl e Encounter Details Date Type Department Care Team (Late st Contact Info) Description 04/03/2008 Inpatient Historical HIS PATIENT IN A BED Jose Burch MD [address] [address] Other Chest Pain Social History Tobacco Use Types Packs/Day Years Used Date Smoking Tobacco: Never Assessed Comments Unknown Sex and Gender Information Value Date Recorded Sex Assigned at Not on file Legal Sex Female 5:37 AM DOCTOR CHIROPRACTIC Gender Identity Not on file Sexual Orientation Not on file documented as of this encounter Plan of Treatment Not on file documented as of this encounter Procedures Procedure Name Priority Date/Time Associated Diagnosis Comments CL CORONARY ANGIOGRAM Routine 04/03/2008 4:51 PM CDT documented in this encounter Results * CL CORONARY ANGIOGRAM (04/03/2008 4:51 PM CDT) Narrative INTERFACE SYSTEM - 04/03/2008 4:51 PM CDT [facility] [address] [place] [address] [email or web address] Cardiac Catheterization Comprehensive Report Patient: ?Ondina Rubio Study ID: ? [id number] Gender: ? F : ?1960 Age: ?47 years Race: Room: Bed: Height: ? 66 in ( 167.6 cm ) Study Date: ? April 03, 2008 Patient status: Inpatient Weight: ? 220 lb ( 100 kg ) Access. #: ?[id number] POC: Attending MD: ?? Stephanie Performing MD: [...] 16:41:10 Procedure Note Provider, Historical - 04/03/2008 [place] [address] [place] [address] [email or web address] Cardiac Catheterization Comprehensive Report Patient: Ondina Rubio Study ID: [id number] Gender: F : 1960 Age: 47 years Race: Room: Bed: Height: 66 in ( 167.6 cm ) Study Date: April 03, 2008 Patient status: Inpatient Weight: 220 lb ( 100 kg ) Access. #: [id number] POC: Attending MD: Stephanie Performing MD: Stephanie [...]
--- OUTSIDE RECORDS SUMMARY | 2024-09-07 04:19 | XMS_ITS | Continuity of Care Document ---
Author Organization [facility] Address [address] [facility] [address] [place] [address] Phone Care Team Providers Care Hand Clerical Verifier Name Role Phone Ingram OD, Rodney Unavailable Unavailable Advance Directives Directive Yes / No Effective Date File Name No Information Encounters Encounter Description Practice Location Reason(s) For Visit Diagnoses Date Provider Providers Copied on Encounter [facility], [address], [place], [place], [id number], [place] tel:[phone] [facility] No Information May-2 5-200 4 Ingram OD Rodney. [address] , [address], [place], [address], [place]. tel:[phone] Family History Family Member Type Diagnosis Age At Onset No Information Payers Payer name Insurance type Covered constitution party ID Authoriza tion(s) Medicaid [facility] [id number] Social History Type Description Quantity Date Captured [...]
--- OUTSIDE RECORDS SUMMARY | 2024-09-07 04:19 | XMS_ITS | Clinical Summary ---
Author Organization [facility] Address [address] [place] [address] Phone Care Team Providers Care Service Mechanic Name Role Phone Aris Maxwell Primary Care Provider [phone] Allergies Active Allergy Reactions Criticality Noted Date [...] topic Insurance MEDICARE [place]ID [place] Care Teams Service Mechanic Relationship Specialty Start Date End Date Aris Maxwell [address] [place] [address] PCP - General 02/20/23
--- OUTSIDE RECORDS SUMMARY | 2024-09-07 04:19 | XMS_ITS | Clinical Summary ---
Author Organization [facility] Address [address] [place] [address] Care Team Providers Care Binder Folder Operator Name Role Phone Leandro Landry MD Unavailable [phone] Aris Maxwell MD Unavailable Claudio Kohler MD [...] with long-term current use of insulin ([facility]) Take 5-20 units before breakfast and dinner [...] with long-term current use of insulin ([facility]) CHECK BLOOD SUGAR THREE TIMES [...] with long-term current use of insulin ([facility]) Inject 0.38 mL (76 Units total) under the skin daily 45 mL 2 024 2024 Active blood-glucose meter kitIndications: Type 2 diabetes mellitus with hyperglycemia, with long-term current use of insulin ([facility]) One Touch Ultra Test blood sugars tid Dx:E11.65 insulin dependent 1 kit 024 Active alcohol swabs (Alcohol Prep Pads) pads, medicatedIndica tions:Type 2 diabetes mellitus with hyperglycemia, with long-term current use of insulin ([facility]) USE ONE SWAB 3 TIMES A DAY DIRECTED 100 each 7 Active pen needle, diabetic (BD Virgen 2nd Gen Pen Needle) 32 gauge x 5/32 needleIndicatio ns:Type 2 diabetes mellitus with hyperglycemia, with long-term current use of insulin ([facility]) USE TO INJECT INSULIN UP [...] medications. Assessment & Plan (08/27/2023 12:19 PM HEALTH PHYSICIST): Chronic problem. Managed by PCP. Currently taking [...] (11/21/2020): Added automatically from request for surgery [id number] Coronary artery disease invo lving [place] coronary artery of [place] heart without angina pectoris 11/21/2020 Overview (12/14/2020): Added automatically from request for surgery [id number] Enthesopathy of hip region 08/16/2020 Obstructive sleep [...] Atorvastatin 80mg. Last lipid panel: 12/08/22 LDL=63, XV=337. Will update labs today. Does not mychart. Verified phone #/address to contact re: results. Assessment & Plan (08/27/2023 11:56 AM HEALTH PHYSICIST): Chronic problem. Controlled on current Atorvastatin 80mg. Last lipid panel: 12/08/22 LDL=63, GB=601. No changes at this time. Assessment & Plan (05/19/2023 1:16 PM CDT): Chronic problem. Controlled on current Atorvastatin 80mg. Last lipid panel: 12/08/22 LDL=63, XA=912. No changes at this time. Assessment & Plan (12/08/2022 1:13 PM CDT): Chronic problem. Controlled on current Atorvastatin 80mg. Last lipid panel: 12/24/21 LDL=67, YT=647. No changes at this time. Will update labs today. Verified phone #/address to contact re: results. Assessment & Plan (08/18/2022 10:22 AM HEALTH PHYSICIST): Chronic problem. On statin therapy, no changes. Assessment & Plan (02/27/2022 10:22 AM CDT): Chronic problem. On statin therapy, no changes. Assessment & Plan (12/24/2021 10:17 AM CDT): Chronic, well controlled Low fat Low cholesterol diet Exercise Continue statin therapy Check lipid profile Assessment & Plan (06/06/2021 11:16 AM CDT): Chronic problem. On statin therapy, no changes. Assessment & Plan (08/19/2020 3:45 PM HEALTH PHYSICIST): Continue statin Assessment & Plan (12/13/2018 8:43 AM CDT): At goal on current medications. Assessment & Plan (08/28/2018 1:22 PM HEALTH PHYSICIST): Check lipid panel Assessment & Plan (04/16/2018 2:31 PM CDT): Continue statin therapy Assessment & Plan (01/07/2018 3:01 PM CDT): Continue lovastatin Assessment & Plan (08/27/2017 1:12 PM HEALTH PHYSICIST): Goal of treatment , LDL cholesterol less [...] associated with type 2 diabetes mellitus ([facility]) 03/17/2017 Assessment & Plan (04/21/2024 10:53 AM CDT): Chronic problem. Currently taking gabapentin 100mg bid. Reviewed foot care; needs to lotion daily. Aware to check feet nightly, not to go barefoot. Assessment & Plan (08/27/2023 11:56 AM HEALTH PHYSICIST): Chronic problem. Currently taking gabapentin 100mg bid. [...] Scheduling. Assessment & Plan (07/12/2019 9:28 AM HEALTH PHYSICIST): Foot care discussed Start Gabapentin. Assessment & Plan (01/07/2018 3:00 PM CDT): Schedule follow up with automatic teller machine servicer. Foot care and driving risks reviewed. Assessment [...] Had DM eye appt scheduled 05/2023 at [facility] but missed appt. Aware to call to [...] infection. Assessment & Plan (08/27/2023 12:54 PM HEALTH PHYSICIST): Chronic problem. Not at goal. A1c has remained stable at 8.3% Will increase Trulicity from 3mg to 4.5mg weekly. Discussed possible shortage; states she has 6 weeks left. Will call if any difficulty obtaining the 4.5mg dose of Trulicity. Discussed moving to [facility] if unable to obtain Trulicity. Current medications: [...] Had DM eye appt scheduled 05/2023 at [facility] but missed appt. Aware to call to [...] DM eye appt scheduled next week at [facility]. Letter will be sent to get copy [...] infection. Assessment & Plan (08/18/2022 10:39 AM HEALTH PHYSICIST): Chronic problem, not at goal. A1c higher [...] exam. Assessment & Plan (08/19/2020 3:49 PM HEALTH PHYSICIST): A1c 8.1. Will try to get Omnipod [...] to check for a therapist in [place] for support with family situation. Assessment & Plan (07/12/2019 9:28 AM HEALTH PHYSICIST): Your Hba1c today was: Lab Results Component Value Date HGBA1C 8.5 (A) 07/12/2019 meaning a 3 month average sugar of : 197 Your goal hba1c is under 7.0 to prevent group home diabetes complications ( eye , kidney and [...] goal hba1c is under 7.0 to prevent termite control service representative diabetes complications ( eye , kidney and [...] plan. Assessment & Plan (08/28/2018 1:24 PM HEALTH PHYSICIST): A1c 8.3. Improved. Have asked her to [...] results. Assessment & Plan (08/27/2023 11:56 AM HEALTH PHYSICIST): Chronic problem. Controlled on current Metoprolol tartrate [...] results. Assessment & Plan (08/18/2022 10:22 AM HEALTH PHYSICIST): Controlled on current medications, no changes. Assessment & Plan (02/27/2022 10:22 AM CDT): Controlled on current medications, no changes. Assessment & Plan (06/06/2021 11:15 AM CDT): Controlled on current medications, no changes. Assessment & Plan (08/19/2020 3:45 PM HEALTH PHYSICIST): Continue current medication Assessment & Plan (05/03/2020 4:52 PM CDT): Controlled on current medications. Continue plan. Assessment & Plan (12/13/2018 8:44 AM CDT): Continue current medication. Check home BP readings Assessment & Plan (08/28/2018 1:21 PM HEALTH PHYSICIST): Controlled on current medications. Assessment & Plan (04/16/2018 2:30 PM CDT): Controlled on current medications. Assessment & Plan (01/07/2018 3:02 PM CDT): Controlled on current medications. Assessment & Plan (08/27/2017 1:11 PM HEALTH PHYSICIST): Goal blood pressure is less than 140/85 [...] 12/08/2022 Assessment & Plan (08/18/2022 10:37 AM HEALTH PHYSICIST): Chronic problem, improving. Increase Trulicity. Assessment & [...] care reviewed. Needs to follow up with automatic teller machine servicer. Assessment & Plan (08/27/2017 1:25 PM HEALTH PHYSICIST): Your Hba1c today was: 9.1 meaning a 3 month average sugar of : 220 Your goal hba1c is under 7.0 to prevent termite control service representative diabetes complications ( eye , kidney and [...] Department Care Team Description 08/31/2024 9:55 AM HEALTH PHYSICIST - 08/31/2024 11:59 PM HEALTH PHYSICIST Hospital Encounter [facility] [address] [place] [address] Baldo Montejo NP Diabetic peripheral neuropathy associated with type 2 diabetes mellitus (CMS/HCC) ([facility]) (Primary Dx); Myalgia; Long-term current use of opiate analgesic; Lumbosacral spondylosis without myelopathy; Spinal stenosis of lumbar region without neurogenic claudication; Chronic pain syndrome Discharge Disposition: Discharge to home or self care 07/05/2024 9:28 AM HEALTH PHYSICIST - 07/05/2024 11:59 PM HEALTH PHYSICIST Hospital Encounter [facility] [address] [place] [address] Baldo Montejo NP Radiculopathy, lumbosacral region (Primary Dx); Chronic bilateral low back pain with bilateral sciatica; Long-term current use of opiate analgesic; Lumbosacral spondylosis without myelopathy; Spinal stenosis of lumbar region without neurogenic claudication; Chronic pain syndrome Discharge Disposition: Discharge to home or self care 06/20/2024 Telephone [facility] [address] [place] [phone] Hilda De Souza NP Med Management [...] Asthma GERD (gastroesophageal reflux disease) Stroke ([facility]) TIA Thyroid nodule Skin cancer Uncontrolled type 2 diabetes mellitus with hyperglycemia, with long-term current use of insulin ([facility]) 03/17/2017 Class 2 severe obesity due t o excess calories with serious comorbidity and body mass index (BMI) of 35.0 to 35.9 in adult ([facility]) 01/07/2018 Family History Medical History Relation Name [...] often do you attend chur ch or anglican services? Never 12/14/2020 Do you belong to any clubs o r organizations such as pentecostalism groups, unions, fraternal or athletic groups, or [...] on file Legal Sex Female 12:18 AM HEALTH PHYSICIST Gender Identity Not on file Sexual Orientation Not on file Obstetrics History Last Filed Vital Signs Vital Sign Reading Time Taken Comments Blood Pressure 111/61 08/31/2024 10:28 AM HEALTH PHYSICIST Pulse 79 08/31/2024 10:28 AM HEALTH PHYSICIST Temperature 36.4 ??C (97.5 ??F) 05/03/2024 10:19 AM C DT Respiratory Rate 17 08/31/2024 10:28 AM HEALTH PHYSICIST Oxygen Saturation 100% 08/31/2024 10:28 AM HEALTH PHYSICIST Inhaled Oxygen Concentration - - Weight 94.3 [...] LAB BLOOD ORDERABLES Genesis guo Result [facility] [address] [place] [address] * Albumin Creatinine Ratio, Urine (04/21/2024 11:25 AM CDT) Pathologist [facility] Albumin Ur <12.0 mg/L Comment: Interpretive Data No reference range established. Current interpretive data was last revised 2018. Creatinine Ur 113.2 mg/dL [facility] Comment: Interpretive Data No reference range established. Current interpretive data was last revised 2018. Albumin Creatinine Ratio, Ur <11 1 - 29 mg/g [facility] Urine 04/21/2024 11:2 5 AM CDT 04/21/2024 2:59 PM CDT us Hilda De Souza EMERGENCY TELECOMMUNICATIONS DISPATCHER LAB URINE ORDERABLES [facility] sari Result [facility] [address] [address] Department of Laboratories [place] [id number] * Lipid panel (04/21/2024 11:25 AM CDT) [...] mg/dL ??High: ?>160 mg/dL Calculated using the Jnearo LDL-C estimating equation. This equation was implemented [...] BLOOD ORDERABLES Genesis l Result [facility] ARAUZ [address] [place] [address] * (ABNORMAL) POCT hemoglobin A1c (04/21/2024 10:43 AM CDT) Hemoglobin A1C, POC 7.7 4.0 - 5.6 % Blood 04/21/2024 10:4 3 AM CDT Hlida De Souza NP POINT OF CARE TEST ORDERA BLES Final Result * Diabetic Foot Exam (11/19/2022) us Historical Provider HEALTH MAINTENANCE Final Result * Occult blood, fecal non neoplasm screening (01/03/2019 11:45 AM CDT) Occult blood, fecal Negative Negative [facility] ([place]) Collection date 1, feces [id number] [facility]) Collection time 1, feces 1144 [facility]) Stool 01/03/2019 11:4 5 AM CDT 01/03/2019 11:49 AM CDT Narrative [facility] ([place]) - 01/03/2019 11:52 AM CDT us Jose F Apple MD LAB BODY FLUIDS AND STOOLS O RDERABLES Final Result [facility] ([place]) 1 [facility] Department [place] [address] * Diabetic Eye Exam (11/25/2017) Historical Provider HEALTH MAINTENANCE Edited Result - Final from Last 3 Months or Most Recently Relevant to Health Maintenance Insurance [facility] MEDICARE MEDICARE [facility] MEDICARE MEDICARE [facility] [place] [address] [employer] MEDICARE GOLD Advance Directives For more information, please contact: [phone] * Full Code (Latest Code Status on File) Date Activated Date Inactivated Comments 12/19/2020 2:28 PM 12/25/2020 8:05 PM Care Teams Binder Folder Operator Relationship Specialty Start Date End Date Claudio Kohler MD [address] [place] [address] 1 [place] [address] PCP - General Gastroenterology 04/21/24 [place] [address] [address] [address] Surgeon Cardiothoracic Surgery 12/25/20 [place] [address] [address] [address] Consulting Physician Cardiology 12/25/20
== END 2024-09-07 04:18 | disposition left against medical advice (07) ==
LOC: ANHED 04:17
PROVIDERS: PCP Internal Medicine
DX: R04.0 Epistaxis (principal)
CPT/HCPCS: 99199